=== PATIENT | male | born 1990 | race Caucasian/White ===

== ENCOUNTER 2016-11-27 08:37 | Outpatient (CLI) | payer BC ==
[2016-11-27 13:00] LABS: BASOPHILS # (AUTO) 0.1 10^3/uL (0.0-0.1); BASOPHILS % (AUTO) 0.6 %; EOSINOPHILS # (AUTO) 0.2 10^3/uL (0.0-0.7); EOSINOPHILS % (AUTO) 1.4 %; HCT - HEMATOCRIT 42.5 % (42.0-52.0); HGB - HEMOGLOBIN 14.4 g/dL (14.0-18.0); LYMPHOCYTES # (AUTO) 2.1 10^3/uL (1.5-3.5); LYMPHOCYTES % (AUTO) 15.1 %; MEAN CORPUSCULAR HGB CONC 33.8 g/dL (32.0-36.0); MEAN CORPUSCULAR VOLUME 88.8 fL (80.0-94.0); MEAN PLATELET VOLUME 9.2 fL (7.4-11.4); MONOCYTES % (AUTO) 7.3 %; NEUTROPHILS # (AUTO) 10.4 10^3/uL (1.5-6.6); NEUTROPHILS % (AUTO) 75.6 %; RED BLOOD COUNT 4.78 10^6/uL (4.70-6.10); RED CELL DISTRIBUTION WIDTH 13.7 % (12.0-15.0); UNCORRECTED WHITE BLOOD COUNT 13.8 x10^3/uL; WHITE BLOOD COUNT 13.8 x10^3/uL (4.8-10.8)
[2016-11-27 13:33] LABS: ALBUMIN/GLOBULIN RATIO 1.4 (1.0-2.2); BUN - BLOOD UREA NITROGEN 16 mg/dL (6-20); CALCIUM 9.2 mg/dL (8.5-10.3); CARBON DIOXIDE - CO2 24 mmol/L (21-32); CHLORIDE 103 mmol/L (101-111); CHOL/HDL RATIO 5.6 (<5.0); CHOLESTEROL 168 mg/dL; CREATININE 0.8 mg/dL (0.6-1.2); GFR - MDRD 116 (>89); GLUCOSE 86 mg/dL (70-100); HDL CHOLESTEROL 30 mg/dL; LDL/HDL RATIO 3.7 (<3.6); POTASSIUM 3.9 mmol/L (3.5-5.0); SODIUM 134 mmol/L (135-145); TOTAL PROTEIN 7.8 g/dL (6.7-8.2); TRIGLYCERIDES 139 mg/dL; VLDL CHOLESTEROL 28 mg/dL
[2016-11-27 13:36] LABS: HEMOGLOBIN A1C 0.53 g/dL
[2016-11-27 13:38] LABS: PLATELET ESTIMATE, MANUAL NORMAL (130-450,000) (NORMAL); PLATELET MORPHOLOGY NORMAL APPEARANCE (NORMAL)
== END 2016-11-27 08:38 | disposition home or self-care (01) ==
LOC: LAB.WCP 08:37
PROVIDERS: ATTEND Family Medicine
DX: Z00.00 Encounter for general adult medical examination without abnormal findings (principal)
CPT/HCPCS: 36415; 80053; 80061; 83036; 84443; 85025

== ENCOUNTER 2016-12-10 19:25 | Outpatient (CLI) | payer BC ==
--- NOTE | 2016-12-11 08:56 | Ultrasound Report ---
LIMITED ABDOMINAL ULTRASOUND: 12/10/2016 CLINICAL INDICATION: Umbilical protrusion, evaluate for hernia. TECHNIQUE: Real-time scanning was performed with solar sales representative and assessor static images obtained. FINDINGS: Ultrasound of the periumbilical abdominal wall was performed. There is a periumbilical he rnia present, with the neck measuring 1.4 cm. The hernia contains fat. No bowel herniation was seen at rest or during Valsalva. IMPRESSION: A 1.4 CM UMBILICAL HERNIA, CONTAINING FAT. JOB #: [id number] EXT JOB #:[id number]
== END 2016-12-10 19:26 | disposition home or self-care (01) ==
LOC: DI 19:25
PROVIDERS: ATTEND Family Medicine
DX: K42.9 Umbilical hernia without obstruction or gangrene (principal)
CPT/HCPCS: 76705

== ENCOUNTER 2019-07-01 10:19 | Outpatient (CLI) | payer BC, OTHER ==
[2019-07-01 12:20] LABS: BASOPHILS # (AUTO) 0.1 10^3/uL (0.0-0.1); BASOPHILS % (AUTO) 0.7 %; EOSINOPHILS # (AUTO) 0.2 10^3/uL (0.0-0.7); HGB - HEMOGLOBIN 14.6 g/dL (14.0-18.0); LYMPHOCYTES # (AUTO) 2.1 10^3/uL (1.5-3.5); LYMPHOCYTES % (AUTO) 20.1 %; MEAN CORPUSCULAR HEMOGLOBIN 29.5 pg (27.0-31.0); MEAN CORPUSCULAR HGB CONC 32.7 g/dL (32.0-36.0); MEAN CORPUSCULAR VOLUME 90.1 fL (80.0-94.0); MEAN PLATELET VOLUME 10.9 fL (7.4-11.4); MONOCYTES # (AUTO) 0.7 10^3/uL (0.0-1.0); MONOCYTES % (AUTO) 6.6 %; NEUTROPHILS # (AUTO) 7.3 10^3/uL (1.5-6.6); NEUTROPHILS % (AUTO) 68.2 %; PLT - PLATELET COUNT 205 10^3/uL (130-450); RED BLOOD COUNT 4.95 10^6/uL (4.70-6.10); RED CELL DISTRIBUTION WIDTH 14.2 % (12.0-15.0); WHITE BLOOD COUNT 10.7 x10^3/uL (4.8-10.8)
[2019-07-01 12:56] LABS: BUN - BLOOD UREA NITROGEN 11 mg/dL (6-20); CARBON DIOXIDE - CO2 26 mmol/L (21-32); CHLORIDE 106 mmol/L (101-111); CHOL/HDL RATIO 5.6 (<5.0); CHOLESTEROL 150 mg/dL; CREATININE 0.7 mg/dL (0.6-1.2); GFR - MDRD 133 (>89); GLUCOSE 84 mg/dL (70-100); HDL CHOLESTEROL 27 mg/dL; LDL CHOLESTEROL,CALCULATED 99 mg/dL; LDL/HDL RATIO 3.7 (<3.6); SODIUM 137 mmol/L (135-145); VLDL CHOLESTEROL 24 mg/dL
== END 2019-07-01 23:59 | disposition home or self-care (01) ==
LOC: LAB.N 10:19
PROVIDERS: ATTEND Physician Assistant Medical
DX: E66.9 Obesity, unspecified (principal); G47.9 Sleep disorder, unspecified; I10 Essential (primary) hypertension
CPT/HCPCS: 36415; 80048; 80061; 83721; 84443; 85025

== ENCOUNTER 2019-10-13 08:00 | Outpatient (CLI) | payer OTHER | END 2019-10-13 23:59 | disposition home or self-care (01) | LOC: LAB.R 08:00 | PROVIDERS: ATTEND Nurse Practitioner Family | DX: Z20.828 Contact with and (suspected) exposure to other viral communicable diseases (principal); R05 Cough | CPT/HCPCS: 81599 ==

== ENCOUNTER 2019-10-20 15:32 | Outpatient (CLI) | payer OTHER ==
--- NOTE | 2019-10-20 16:08 | SLEEP CARE CONSULTATION ---
Information from patient questionnaire entered by Yu Doran. I have reviewed and concur with the information entered by Yu Doran. This document represents the service I personally performed and the decisions made by me, Luisa Almaguer MD, [facility]. History of Present Illness Service Date and Time: 10/20/2019 1532 Reason for Visit: New patient Chief Complaint: reports: Unrefreshed sleep, Snoring, Other (nacrolepse) Duration of Symptoms: 2-3 years Usual bedtime: 11 pm Time it takes to fall asleep: immediately Snores at night: Yes Observed to quit breathing while asleep: Yes Sleeps alone due to snoring: Yes Number of times waking at night: 3-4 Reasons for waking at night: reports: Bathroom Toss, Turn, or Twitch while sleeping: Yes Recalls having dreams: No Usually gets out of bed at: 6 am Feels refreshed in the morning: No Morning headache: Yes Sleepy or fatigued during the day: Yes Ever fallen asleep while driving: Yes Takes day naps: Yes Dreams during day naps: No Prior sleep studies: No Additional HPI information: I had the pleasure of seeing Mr. Saldana today regarding the possibility of him having a sleep disorder. As you know, he is a 29 year old gentleman who complains of unrefreshed sleep, loud snore, and excessive daytime sleepiness. The patient tells me that he normally goes to bed around 11 pm, and it takes him approximately just a few minutes to fall asleep. He has been told that he snores loudly and irregularly at night. He has also been observed to stop breathing in his sleep. His fiance has to sleep in a separate room. He can re call waking up on the average of 3 - 4 times during the night. Most of the time he wakes up because of having to use the bathroom. He has awakened occasionally because of his own snoring, choking, and having to gasp for air. There is a lot of tossing and turning in his sleep. No somniloquy (sleep talking) or somnambulism (sleep walking). Generally there is no recollection of dreams. In the morning he usually gets up out of the bed around 6 a.m. not feeling refreshed nor rested. He usually has a morning headache that goes away within 15 minutes. During the day he complains of feeling sleepy and fatigued. His score on [place] Sleepiness Scale is 23 out of 24. He usually takes naps during the day. Upon falling asleep during the day he denies having vivid dreams. He has never had sleep paralysis, experienced cataplexy or symptoms of restless leg syndrome. He reports having impaired concentration during the day. 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 Patient is Single and lives in [place]. Have you smoked in the past 12 months: No Alcohol use: Yes Alcohol amount and frequency: a little 1-2 times a month Caffeine use: Yes Caffeine amount and frequency: 3-4 daily Family History Family history of sleep disordered breathing: No Allergies and Home Medications Drug allergies reviewed: Yes Home medication list reviewed: Yes Review of Systems Cardiovascular: reports: leg or foot swelling Respiratory: reports: shortness of breath Gastrointestinal: denies: heartburn, difficulty swallowing, nausea, vomitting, diarrhea, abdominal pain, other Urinary: reports: frequency, urgency Neurological: reports: headaches Psychiatric: reports: anxiety, depression Ear/Nose/Throat: denies: nasal congestion, sinus problems, nose bleeds, dry mouth/throat, hoarseness, injury to nose, tonsillectomy, wisdom teeth removed, other Endocrine: reports: sluggishness, excessive thirst, increased urination Musculoskeletal: reports: back pain Immunologic: denies: sneezing, rash, itching, allergies to food or environment, other Physical Exam Height: 5 ft 11 in Weight: 550 lb Body Mass Index: 76.7 BMI Classification: Morbidly Obese Impression and Plan IMPRESSION: 1. Obstructive Sleep Apnea-Hypopnea Syndrome, most likely very severe, as suggested by history of loud and irregular snoring, observed cessation of breath while asleep, frequent awakenings during the night, unrefreshed sleep, morning headache, cognitive impairment, and daytime hypersomnolence. Narrow oropharynx and obesity are common predisposing factors for obstructive sleep apnea-hypopnea syndrome. Pathophysiology of sleep-disordered breathing was discussed. I recommend proceeding to polysomnography to confirm the diagnosis and to assess severity. Because of his weight, an in-laboratory polysomnography will have to be referred to [facility] in [place]. The patient was also given the option of a home sleep apnea test (HSAT). Plan: 1. Schedule either an in-laboratory polysomnography or home sleep apnea test (HSAT). 2. Avoid long distance driving or when feeling sleepy. 3. Avoid alcohol, sedative and muscle relaxant around bedtime. 4. Attempt to lose weight. 5. follow up with his primary care provider for leg edema. 6. Return in 1 to 2 weeks after the study to discuss results and initiate therapy. Visit Type: In Office Time Spent with Patient (minutes): 15 Provider Statement: I spent 100% of the Face to Face Visit with the patient with greater than 50% spent counseling the patient and coordination of care.
== END 2019-10-20 15:33 | disposition home or self-care (01) ==
LOC: SC 15:32
PROVIDERS: ATTEND Internal Medicine Pulmonary Disease
DX: G47.10 Hypersomnia, unspecified (principal); G47.8 Other sleep disorders; R06.83 Snoring; R06.81 Apnea, not elsewhere classified; R51 Headache; F32.9 Major depressive disorder, single episode, unspecified; E66.01 Morbid (severe) obesity due to excess calories; Z68.45 Body mass index [BMI] 70 or greater, adult
CPT/HCPCS: 99203; 99212

== ENCOUNTER 2020-03-21 09:14 | Outpatient (CLI) | payer OTHER ==
--- NOTE | 2020-03-21 10:24 | SLEEP CARE CONSULTATION ---
Information from patient questionnaire entered by Gallito Vazquez. I have reviewed and concur with the information entered by Gallito Vazquez. This document represents the service I personally performed and the decisions made by me, Pretty Lemus ARNP. History of Present Illness Service Date and Time: 03/21/2020913 Previous diagnosis: Extremely Severe, Obstructive Sleep Apnea-Hypopnea Syndrome AHI: 109.7 Reason for follow up: first compliance Equipment type: CPAP Equipment obtained from: [facility] (no new supplies yet) Mask style: Nasal (over the night) Backup mask available: No (keep mask once it is replaced) Last cushion change: 6 weeks Prior sleep studies: No Year and Where: 2019 [facility] Type of Sleep Study: Home sleep study HPI additional information: BRENT ESCOTO was diagnosed to have extremely severe, AHI 109.7, obstructive sleep apnea-hypopnea syndrome and returned today for CPAP therapy first compliance follow-up. Sleep Study - Results Prior sleep studies: No CPAP Compliance Data - Data Reviewed with Patient Average duration of nightly device use: 4 h 48 min Compliance rate %: 26.7 Current pressure setting (cmH2O): 4-18 Humidity settin Heated hose settin Average residual AHI: 27.2 Central apnea: 0.3 Obstructive apnea: 15.8 Average large leak: 6 min 26 sec Subjective Missed days of use due to: reports: other (staying with brother, lost job and place to stay) Patient concerns: denies: aerophagia, mask discomfort, air blowing in eyes, mask leak noise, condensation in mask/hose, nasal congestion, dry mouth, nose, throat, epistaxis, other Observed to snore while using device: Yes (still a little, but it is a lot less) Current pressure setting perceived as: comfortable On therapy, patient: reports: sleeping better, awakening more refreshed, being more awake and alert during the day, more rested overall. denies: drowsiness while driving Initial [place] Sleepiness Scale score: 23 (in 2019) Current [place] Sleepiness Scale score: 10 Allergies and Home Medications Drug allergies reviewed: Yes (NKDA) Home medication list reviewed: Yes (no changes) Review of Systems Review of systems same as previous: Yes (no changes) Physical Exam Heart Rate: 86 O2 Saturation: 96 Height: 5 ft 11 in Weight: 566 lb Body Mass Index: 78.9 BMI Classification: Morbidly Obese Impression and Plan 1. Obstructive Sleep Apnea-Hypopnea Syndrome, extremely severe, with poor treatment compliance and poor apnea control. He has however shown good reduction of his residual AHI to 27.2 from his original 109.7 found on his HST. On CPAP therapy, the patient has better sleep quality and is more rested overall. He has lost his job and house. He is currently sleeping on his brother's couch. He has had some difficulty in remembering to put the CPAP on due to life stressors and current living arrangements. To prevent falling asleep without CPAP, patient advised to put CPAP on before getting into bed (or going to sleep) and wearing it for any naps. 2. Morbid obesity, unspecified. Patient has been making changes like limiting portions and eating healthier foods. Currently patients BMI is 78.0. Obesity increases the risk of apnea, CPAP pressure requirements and overall health risks especially cardiovascular and diabetes. Thus patient is advised to try to lose weight. The BMI chart was reviewed. The patient's CPAP pressure range should accommodate some weight loss. Symptoms to report for additional pressure adjustment discussed. Patient's apnea severity and rationale for treatment to reduce apnea, improve sleep quality and reduce cardiovascular and cerebrovascular events was reviewed. I also reviewed the benefit of consistent device use of CPAP for his asthma, depression and anxiety. * Increase use of CPAP * Changeauto CPAP pressure to 14-16 cmH2O * Notify me if snoring with mask or feeling that the pressure is too much or too little * Continue to make efforts to lose weight * Call this office if any problems using CPAP * Return for follow up in 1-2 months, or sooner if concerns arise Counseling Topics: Spare mask, Weight loss health impact Visit Type: In Office Time Spent with Patient (minutes): 20 Provider Statement: I spent 100% of the Face to Face Visit with the patient with greater than 50% spent counseling the patient and coordination of care.
== END 2020-03-21 09:15 | disposition home or self-care (01) ==
LOC: SC 09:14
PROVIDERS: ATTEND Nurse Practitioner Family
DX: G47.33 Obstructive sleep apnea (adult) (pediatric) (principal); E66.01 Morbid (severe) obesity due to excess calories; Z68.45 Body mass index [BMI] 70 or greater, adult
CPT/HCPCS: 99212; 99213

== ENCOUNTER 2020-05-16 12:43 | Outpatient (CLI) | payer OTHER | END 2020-05-16 12:44 | disposition home or self-care (01) | LOC: SC 12:43 | PROVIDERS: ATTEND Nurse Practitioner Family | DX: Z53.9 Procedure and treatment not carried out, unspecified reason (principal) ==

== ENCOUNTER 2021-11-30 11:55 | Outpatient (CLI) | payer MEDICAID | END 2021-11-30 11:56 | disposition critical access hospital (66) | LOC: EMS 11:55 | DX: R06.00 Dyspnea, unspecified (principal); R05.9 Cough, unspecified; Z59.02 Unsheltered homelessness | CPT/HCPCS: A0425; A0427 ==

== ENCOUNTER 2021-11-30 12:17 | Inpatient (IN) | payer MEDICAID ==
--- NOTE | 2021-11-30 12:23 | ED Physician Documentation ---
History of Present Illness - Stated complaint Stated Complaint: SOA - History obtained from History obtained from: Patient, EMS - Additonal information Additional information: 31-year-old gentleman with history of pedal edema and morbid obesity. His only routine medication is furosemide. Smokes marijuana on occasion, does not smoke tobacco. He has had a progressive illness over the last few days to week marked by cough productive of orange sputum and worsening shortness of breath. He denies fevers, sick contacts, or an increase in his chronic pedal edema. EMS brings him in and notes him to have had a room air saturation of 80%. He feels somewhat better after a DuoNeb in route. Review of Systems Ten Systems: 10 systems reviewed and negative Constitutional: denies: Fever, Chills Cardiac: denies: Chest pain / pressure, Palpitations PD PAST MEDICAL HISTORY - Allergies Allergies/Adverse Reactions: Allergies Allergy/AdvReac Type Severity Reaction Status Date / Time No Known Drug Allergies Allergy Verified 11/30/21 12:28 PD ED PE NORMAL - Vitals Vital signs reviewed: Yes - General General: Alert and oriented X 3, Other (Labored breathing but speaking in full sentences but barely. Tachypneic.) - HEENT HEENT: PERRL, EOMI - Neck Neck: Supple, no meningeal sign, No bony TTP - Cardiac Cardiac: RRR, No murmur - Respiratory Respiratory: Other (Mildly diminished at the bases with mild expiratory wheezes, generally good air motion though. No focal findings.) - Abdomen Abdomen: Normal bowel sounds, Soft, Non tender - Back Back: No CVA TTP, No spinal TTP - Derm Derm: Normal color, Warm and dry - Extremities Extremities: Other (4+ pitting pedal edema which she says is not worse than usual with venous stasis changes.) - Neuro Neuro: Alert and oriented X 3, Normal speech Results - Vitals Vitals: Vital Signs - 24 hr 11/30/21 11/30/21 11/30/21 12:21 12:29 12:30 Temperature 36.9 C Heart Rate 102 H 92 Respiratory 24 34 H Rate Blood Pressure 154/71 H 159/69 H O2 Saturation 83 L 100 100 11/30/21 11/30/21 12:41 13:00 Temperature Heart Rate 78 90 Respiratory 23 25 H Rate Blood Pressure 142/66 H O2 Saturation 100 Oxygen O2 Source Nasal cannula Oxygen Flow Rate 4 - EKG (time done) 1242 Rate: Rate (enter#) (93) Rhythm: NSR, LAE [place]: RAD Intervals: Normal IA QRS: Normal Ischemia: Non specific changes. No: ST elevation c/w ischemia, ST depression - Labs Labs: Laboratory Tests 11/30/21 11/30/21 11/30/21 12:35 12:58 12:58 WBC 12.0 H RBC 4.61 L Hgb 12.9 L Hct 42.0 MCV 91.1 MCH 28.0 MCHC 30.7 L RDW 16.3 H Plt Count 215 MPV 10.0 Neut # (Auto) 9.1 H Lymph # (Auto) 1.4 L [place] # (Auto) 0.8 Eos # (Auto) 0.2 Baso # (Auto) 0.1 Absolute Nucleated RBC 0.03 Nucleated RBC % 0.2 Manual Slide Review Indicated WBC Morphology Platelet Estimate NORMAL (130-450,000) Platelet Morphology NORMAL APPEARANCE RBC Morph Micro Appear NORMAL APPEARANCE VBG pH VBG pCO2 VBG pO2 VBG HCO3 VBG Total CO2 VBG O2 Saturation VBG Base Excess Sodium 138 Potassium 4.6 Chloride 98 L Carbon Dioxide 34 H Anion Gap 6.0 BUN 11 Creatinine 0.7 Estimated GFR (MDRD) 131 Glucose 85 Lactic Acid Calcium 8.9 Phosphorus 4.1 Magnesium 2.0 Total Bilirubin 0.9 AST 24 ALT 39 Alkaline Phosphatase 60 B-Natriuretic Peptide Total Protein 7.5 Albumin 3.8 Globulin 3.7 Albumin/Globulin Ratio 1.0 Nasal Adenovirus (PCR) NOT DETECTED Nasal B. parapertussis DNA (PCR) NOT DETECTED Nasal Coronavir 229E PCR NOT DETECTED Nasal Coronavir HKU1 PCR NOT DETECTED Nasal Coronavir NL63 PCR NOT DETECTED Nasal Coronavir OC43 PCR NOT DETECTED Nasal Enterovir/Rhinovir PCR NOT DETECTED Nasal Influenza B PCR NOT DETECTED Nasal Influenza A PCR NOT DETECTED Nasal Parainfluen 1 PCR NOT DETECTED Nasal Parainfluen 2 PCR NOT DETECTED Nasal Parainfluen 3 PCR NOT DETECTED Nasal Parainfluen 4 PCR NOT DETECTED Nasal RSV (PCR) NOT DETECTED Nasal B.pertussis DNA PCR NOT DETECTED Nasal C.pneumoniae (PCR) NOT DETECTED [place] Human Metapneumo PCR NOT DETECTED Nasal M.pneumoniae (PCR) NOT DETECTED Nasal SARS-CoV-2 (PCR) NOT DETECTED 11/30/21 11/30/21 11/30/21 12:58 12:58 12:58 WBC RBC Hgb Hct MCV MCH MCHC RDW Plt Count MPV Neut # (Auto) Lymph # (Auto) [place] # (Auto) Eos # (Auto) Baso # (Auto) Absolute Nucleated RBC Nucleated RBC % Manual Slide Review WBC Morphology Platelet Estimate Platelet Morphology RBC Morph Micro Appear VBG pH 7.338 VBG pCO2 50.5 VBG pO2 38.5 VBG HCO3 26.5 VBG Total CO2 28.1 VBG O2 Saturation 70.9 VBG Base Excess 0.0 Sodium Potassium Chloride Carbon Dioxide Anion Gap BUN Creatinine Estimated GFR (MDRD) Glucose Lactic Acid 1.1 Calcium Phosphorus Magnesium Total Bilirubin AST ALT Alkaline Phosphatase B-Natriuretic Peptide 45 Total Protein Albumin Globulin Albumin/Globulin Ratio Nasal Adenovirus (PCR) Nasal B. parapertussis DNA (PCR) Nasal Coronavir 229E PCR Nasal Coronavir HKU1 PCR Nasal Coronavir NL63 PCR Nasal Coronavir OC43 PCR Nasal Enterovir/Rhinovir PCR Nasal Influenza B PCR Nasal Influenza A PCR Nasal Parainfluen 1 PCR Nasal Parainfluen 2 PCR Nasal Parainfluen 3 PCR Nasal Parainfluen 4 PCR Nasal RSV (PCR) Nasal B.pertussis DNA PCR Nasal C.pneumoniae (PCR) [place] Human Metapneumo PCR Nasal M.pneumoniae (PCR) Nasal SARS-CoV-2 (PCR) PD MEDICAL DECISION MAKING - ED course ED course: 31-year-old gentleman with BMI of 90 and weight of 301 kg presents with shortness of breath. His BNP is normal and venous gases normal. He is not tachycardic. PE is considered, but nothing really to suggest PE given that he is not tachycardic. He has no new or asymmetric pedal edema or calf pain. No chest pain. Chest x-ray demonstrating a left lower lobe pneumonia and with a combination of a productive cough this is likely causative more than possible CHF on x-ray. He was given 40 mg of Lasix IV here but also Rocephin and Zithromax IV for pneumonia after blood cultures and spoke with Dr. Mane for admission at 1:45 PM. 1v CXR: 1. Moderate cardiomegaly and bilateral perihilar interstitial thickening suggesting CHF or volume overload. Correlate with BNP. 2. Possible early pulmonary edema versus infectious opacity in the left infrahilar region. Departure - Departure Disposition: [facility] DC/Xfer Clinical Impression: Pneumonia, Congestive heart failure Condition: Stable
[2021-11-30] MEDS: ALBUTEROL NEB 2.5 MG/3 ML INH STA (12:33)
[2021-11-30] MEDS ORDERED: ALBUTEROL NEB 2.5 MG/3 ML INH ONE (12:44)
--- NOTE | 2021-11-30 12:55 | XRAY Report ---
PROCEDURE: Chest 1 View X-Ray INDICATIONS: cough, dyspnea TECHNIQUE: One view of the chest was acquired. COMPARISON: None FINDINGS: Surgical changes and devices: None. Lungs and pleura: Diffuse thickening of the interstitial markings, most prominently in the perihilar region bilaterally. Possible alveolar opacity in the left infrahilar region. No visible large pleural effusions. Mediastinum: Mediastinal contours appear normal. Heart size is moderately enlarged. The central vas culature is mildly prominent. Bones and chest wall: No suspicious bony lesions. Overlying soft tissues appear unremarkable. IMPRESSION: 1. Moderate cardiomegaly and bilateral perihilar interstitial thickening suggesting CHF or volume ove rload. Correlate with BNP. 2. Possible early pulmonary edema versus infectious opacity in the left infrahilar region. Reviewed by: Allegra Anderson MD on 11/30/2021 12:53 PM PDT Approved by: Allegra Anderson MD on 11/30/2021 12:53 PM PDT Station ID: [id number]
[2021-11-30 13:05] LABS: BASOPHILS # (AUTO) 0.1 10^3/uL (0.0-0.1); BASOPHILS % (AUTO) 0.5 %; EOSINOPHILS # (AUTO) 0.2 10^3/uL (0.0-0.7); EOSINOPHILS % (AUTO) 1.3 %; HGB - HEMOGLOBIN 12.9 g/dL (14.0-18.0); LYMPHOCYTES # (AUTO) 1.4 10^3/uL (1.5-3.5); LYMPHOCYTES % (AUTO) 11.2 %; MEAN CORPUSCULAR HGB CONC 30.7 g/dL (32.0-36.0); MEAN CORPUSCULAR VOLUME 91.1 fL (80.0-94.0); MONOCYTES # (AUTO) 0.8 10^3/uL (0.0-1.0); MONOCYTES % (AUTO) 6.7 %; NEUTROPHILS # (AUTO) 9.1 10^3/uL (1.5-6.6); NEUTROPHILS % (AUTO) 75.7 %; NRBC ABSOLUTE COUNT (AUTO) 0.03 x10^3/uL; NUCLEATED RED BLOOD CELLS AUTO 0.2 /100WBC; PLT - PLATELET COUNT 215 10^3/uL (130-450); RED BLOOD COUNT 4.61 10^6/uL (4.70-6.10); RED CELL DISTRIBUTION WIDTH 16.3 % (12.0-15.0)
[2021-11-30 13:08] LABS: SLIDE REVIEW? Indicated
[2021-11-30] MEDS ORDERED: cefTRIAXone 2 GM in SODIUM CHLORIDE 0.9% MINIBAG 100 ML IV STA (13:09)
[2021-11-30] MEDS ORDERED: AZITHROMYCIN INJ 500 MG in SODIUM CHLORIDE 0.9% 250 ML IV STA (13:09)
[2021-11-30] MEDS ORDERED: FUROSEMIDE 40 MG/4 ML VIAL IVP STA (13:12)
[2021-11-30 13:27] LABS: VBG HCO3 26.5 mmol/L (23-28); VBG OXYGEN SATURATION 70.9 % (60-80); VBG PH 7.338 (7.31-7.41); VBG PO2 38.5 mmHg (25-47); VBG TOTAL CO2 28.1 mmol/L (24-29)
[2021-11-30 13:28] LABS: PLATELET ESTIMATE, MANUAL NORMAL (130-450,000) (NORMAL); PLATELET MORPHOLOGY NORMAL APPEARANCE (NORMAL); RBC MORPHOLOGY (MULTIPLE) NORMAL APPEARANCE (NORMAL); VBG PCO2 50.5 mmHg (41-51)
[2021-11-30 13:37] LABS: ALBUMIN 3.8 g/dL (3.2-5.5); BILIRUBIN,TOTAL 0.9 mg/dL (0.2-1.0); CALCIUM 8.9 mg/dL (8.5-10.3); CREATININE 0.7 mg/dL (0.6-1.2); PHOSPHORUS 4.1 mg/dL (2.5-4.6); POTASSIUM 4.6 mmol/L (3.5-5.0); TOTAL PROTEIN 7.5 g/dL (6.7-8.2)
[2021-11-30 13:38] LABS: B. PARAPERTUSSIS- RESP PCR PAN NOT DETECTED; B. PERTUSSIS- RESP PCR PANEL NOT DETECTED; C. PNEUMONIAE- RESP PCR PANEL NOT DETECTED; CORONAVIRUS 229E-RESP PCR NOT DETECTED; CORONAVIRUS HKU1-RESP PCR NOT DETECTED; CORONAVIRUS NL63-RESP PCR NOT DETECTED; CORONAVIRUS OC43-RESP PCR NOT DETECTED; HUMAN METAPNEUMOVIRUS NOT DETECTED; INFLUENZA A- RESP PCR PANEL NOT DETECTED; INFLUENZA B - RESP PCR PANEL NOT DETECTED; M. PNEUMONIAE- RESP PCR PANEL NOT DETECTED; PARAINFLUENZA VIRUS 1 NOT DETECTED; PARAINFLUENZA VIRUS 2 NOT DETECTED; PARAINFLUENZA VIRUS 3 NOT DETECTED; PARAINFLUENZA VIRUS 4 NOT DETECTED; RHINOVIRUS/ENTEROVIRUS NOT DETECTED; RSV- RESP PCR PANEL NOT DETECTED; SARS-CoV-2 -RESP PCR PANEL NOT DETECTED
[2021-11-30] MEDS ORDERED: ONDANSETRON ODT 4 MG TABLET TL PRN (13:44)
[2021-11-30] MEDS ORDERED: oxyCODONE 5 MG TABLET PO PRN (13:44)
[2021-11-30] MEDS ORDERED: ONDANSETRON 4 MG/2 ML VIAL IVP PRN (13:44)
[2021-11-30] MEDS ORDERED: ACETAMINOPHEN 325 MG TABLET PO PRN (13:44)
--- NOTE | 2021-11-30 14:02 | HISTORY & PHYSICAL EXAMINATION ---
Chief Complaint - Chief Complaint Chief Complaint: shortness of breath History of Present Illness - Admitted From Admitted From:: home via EMS - History Obtained From Records Reviewed: [facility] History obtained from: Dr. Cano and patient Exam Limitations: shortness of breath - History of Present Illness HPI Comment/Other: 31-year-old male who has severe superobesity as well as severe obstructive sleep apnea hypopnea syndrome that presents as shortness of breath via EMS today. He has always had chronic leg edema. Has been present for years. Then he has had an increase in leg edema. He cannot put his finger on it. There is no change in diet, medication. He has not changed his work schedule. He was not ill. But the leg edema was so severe that he was unable to stand for minutes at a time. He went to the walk-in clinic on on November 24 with these complaints. At that time it was mainly the bilateral leg edema and bilateral leg pain. He was unable to stand for more than 10 minutes without a burning sensation. Over the course of 24 hours the leg edema has gotten so severe he could barely move. But on physical examination he was described as moving all extremities without pain or limitations. No swelling was noted at all. Skin was warm, dry, intact without any changes in color. He was started on Lasix. In spite of that, he continued to progress with a new cough over the last few days and then orange phlegm. He denied fever, chills, sore throat. No postnasal drip. No eustachian tube dysfunction. He works at [employer] and no one else is sick around him. Today his shortness of breath and cough became so severe that EMS was called. He was doing his weekly laundry. Usually he can walk from the car to the laundromat without stopping. Today he had to stop twice with 1 load of laundry to catch his breath. It got to the point that he could not breathe anymore.When EMS got there they found him to have a room air saturation of 80%. So he was placed on oxygen and given albuterol in route. He was with labored breathing. In the emergency room temperature was 36.9. Heart rate 102. Blood pressure 154/71. Respirations 24. 83% on room air. Weight is 301.639 kg. Chest x-ray shows a faint left infiltrate according to ER MD. Radiology reads it as congestive heart failure with bilateral congestion. His exam had him with labored breathing and barely speaking in full sentences, tachypnea. Diminished breath sounds at the bases with mild expiratory wheezing. Good air movement. 4+ pitting edema not worse than usual with chronic venous stasis changes. He was alert and oriented. He received Lasix once. And was given azithromycin and Rocephin. He is CMP is essentially normal. BNP is 45. White cell count is 12,000. Hemoglobin 12.9. Platelets 215. MCV is 91.1. He is requiring 4 L nasal cannula to maintain his O2 sats at 97. He still breathing at about 30. Emergency room provider has requested admission to our service for pneumonia and possible new CHF. History - Past Medical History Cardiovascular: reports: Hypertension Respiratory: reports: Asthma, Sleep apnea, CPAP use Neuro: reports: None Endocrine/Autoimmune: reports: Other (superobesity. Has tried everything. He is getting ready to start the process of getting a lap band in his first visit with that doctor is in January.) GI: reports: Other (umbilical hernia) : reports: None Psych: reports: Depression Musculoskeletal: reports: Other (Chronic leg and foot pain with chronic pedal edema for several years) MRSA Hx?: No - Past Surgical History Other past surgical history: No past surgical history - Family & Social History Family History Comment/Other: Mom is alive. Has diabetes. Dad is alive and also has diabetes and HTN. 4 brothers and 2 sisters. No medical issues but he does feel mental illness is present in them. No children. There are no cancers, thyroid, bleeding disorders in the family Living arrangement: Homeless (living in his car) Living Situation: Alone Social History Notes: Never smoked. No history of alcohol abuse or recreational substance abuse. He is employed at [employer] 20 hours a week. Not . Has no children. From [place]. Came to live on [facility] in 2014. He is only able to work 20 hours a week because of the pain in his feet and legs. The crew manager at [employer] was trying to work with him so that he can do 4 hours of work, rest 4 hours, and then do another 4 hours of work so he can get 8 hours a day. He lives out of his car. During the day he goes to [employer] when not at his not work. He showers 3 days a week with the relationship to hank tran has with a gym. He also does laundry 1 day a week on . - Substance History Use: Uses substance without health or social issues: Alcohol (Is 2 beers about once a month), Cannabis (1 cigarette once a month) Abuse: Recurrent use of substance despite neg consequences: NONE Dependence: Experiences withdrawal or developed tolerances: NONE - POLST Patient has POLST: No POLST Status: Full Code Meds/Allgy - Home Medications Home Medications: Ambulatory Orders Medication Instructions Recorded Confirmed Furosemide [Lasix] 20 mg PO DAILY 11/30/21 11/30/21 - Allergies Allergies/Adverse Reactions: Allergies Allergy/AdvReac Type Severity Reaction Status Date / Time No Known Drug Allergies Allergy Verified 11/30/21 12:28 Review of Systems - Constitutional Constitutional: reports: Fatigue, Weakness, Weight gain. denies: Fever, Chills, Malaise, Poor appetite, Diaphoresis, Night sweats - Eyes Eyes: denies: Pain, Irritation, Amaurosis - Ears, Nose & Throat Ears, Nose & Throat: denies: Ear pain, Hearing loss, Hearing aids, Nasal pain, Nasal discharge, Nasal obstruction, Nasal congestion, Dentures, Sore throat, Hoarseness - Cardiovascular Cariovascular: reports: Edema, Exertional dyspnea, Decr. exercise tolerance. denies: Irregular heart rate, Palpitations, Chest pain, Lightheadedness, Syncope - Respiratory Respiratory: reports: Cough, Sputum production, Wheezing, Snoring, SOB at rest, SOB with exertion, Apnea. denies: Hemoptysis, Orthopnea - Gastrointestinal Gastrointestinal: denies: Abdominal pain, Abdominal distention, Constipation, Diarrhea, Change in bowel habits - Genitourinary Genitourinary: denies: Dysuria, Frequency, Urgency, Hematuria - Musculoskeletal Musculoskeletal: reports: Muscle pain (of legs), Other (Severe chronic foot pain when stands on his feet for more than 3 hours recently now down to 10 minutes). denies: Back pain, Muscle aches, Stiffness - Integumentary Integumentary: denies: Rash, Pruritis, Lesions, Dryness - Neurological Neurological: denies: General weakness, Focal weakness, Headache, Dizziness, Memory problems, Pre-existing deficit - Psychiatric Psychiatric: reports: Depression. denies: Anxiety, Suicidal - Endocrine Endocrine: denies: Polyuria, Polydypsia, Polyphagia - Hematologic/Lymphatic Hematologic/Lymphatic: denies: Anemia, Bruising, Petechiae, Blood clots Prior Level of Functionality: Patient is employed . Independent with activities of daily living. No use of durable medical Equipment. Mobility is limited by his obesity. One of his coworkers from when he worked at [employer] in 2014 is who he considers his best friend/brother. He would like that person to be his DURABLE POWER OF QUALITY CONTROL OPERATOR. Exam - Vital Signs Reviewed Vital Signs: Yes Vital Signs: Vital Signs x48h Temp Pulse Resp BP Pulse Ox 11/30/21 13:30 104 H 30 H 143/80 H 97 11/30/21 13:00 90 25 H 142/66 H 100 11/30/21 12:41 78 23 11/30/21 12:30 92 34 H 159/69 H 100 11/30/21 12:29 100 11/30/21 12:21 36.9 C 102 H 24 154/71 H 83 L - Physical Exam General Appearance: positive: No acute distress (But after speaking to me for 5 minutes, he starts having increasing cough, wheezing, and increased respiratory rate), Alert, Other (Super obese young male, sitting at about 35 degrees in the [facility]) Eyes Bilateral: positive: PERRL, EOMI ENT: positive: No signs of dehydration. negative: Purulent nasal drainage, Pharyngeal erythema Neck: positive: Other (I cannot assess for JVD because of neck girth). negative: Stiff neck Respiratory: positive: Wheezes, Other (Increasing dry cough when he speaks to me. Increased respiratory effort when he speaks to me. If he can rest for a minute he can recover.). negative: Rales Cardiovascular: positive: Regular rate & rhythm (Widened AP diameter leaving him with distant cardiac tones). negative: Gallop/S4, Friction rub Peripheral Pulses: positive: 0 Abdomen: positive: Non-tender, No organomegaly, Nml bowel sounds, No distention, Other (Reducible umbilical hernia) Skin: positive: Warm, Dry, Other (Chronic red venous stasis changes from the knees down of his skin. Also with some dry cracked skin. No oozing or fluid yet) Extremities: positive: Full ROM, Pedal edema Neurologic/Psychiatric: positive: Oriented x3, CN's nml (2-12), Motor nml Conclusion/Plan - Problem List (1) Acute respiratory failure with hypoxia Conclusion/Plan: At this time it is felt that he has hypoxic from a combination of early left infiltrate and "congestive heart failure". We have thought about pulmonary em bolism. The emergency room doctor and I discussed. He is not tachycardic. He has no chest pain. And his size would prohibit us from doing any type of radiologic evaluation for PE. If I check a D-dimer it will most likely be elevated if he has pneumonia. Plan: Treat as pneumonia Investigate more vigorously to see if he really has congestive heart failure Go ahead and check D-dimer. If it is negative at least it would give me one avenue of investigation. (2) Pneumonia Conclusion/Plan: Cough, hemoptysis, shortness of breath. Abnormal chest x-ray. He does have an elevated white cell count but no fever. Treat cautiously as pneumonia Pneumonia pathway, check procalcitonin (3) Congestive heart failure Conclusion/Plan: I am suspicious of this diagnosis and this gentleman has not had this diagnosis before. I believe he is chronic lymphedema from his morbid obesity and mechanical issues but not true congestive heart failure in the past. He may have chronic leg edema because of lymphedema and his size. The recent cough, possible lung infection on top of a patient with obstructive sleep apnea and asthma may have resulted in increasing pulmonary pressures and subsequent right- sided heart failure/leg edema. The abnormalities were seen on chest x-ray may be strictly due to body habitus and chest x-ray technique. BNP is normal. He has received a dose of Lasix in the emergency room but I will hold off on giving him anymore. Plan: Echocardiogram Repeat chest x-ray looking for better technique Qualifiers: Heart failure chronicity: unspecified (4) ALONDRA on CPAP Conclusion/Plan: The patient has been seen by the sleep lab. He has on his own equipment. I will see if someone can bring it in for him. He can use his own equipment in his room. (5) Super obesity Conclusion/Plan: He is seen erratically in his primary care provider office. They have discussed weight loss attempts. So far, unfortunately, his attempts have been unsuccessful. He has plans to establish himself with a bariatric clinic. He really wants to start the process by January and is looking at a lap band surgery to help with weight loss. - Lab Results Lab results reviewed: Yes Fish Bones: 11/30/21 12:58 11/30/21 12:58 - Diagnostic Imaging Results Diagnostic Imaging Results: positive: Final report reviewed Diagnostic Imaging Results Comments: Moderate cardiomegaly and bilateral perihilar interstitial thickening suggestive of congestive heart failure or volume overload. Correlate with BNP. Possible early pulmonary edema versus infectious opacity in the left infrahilar region. - EKG Results EKG Interpreted Independently: No EKG Comparison: No prior EKG EKG Findings: Normal sinus rhythm. No acute ST-T wave changes. Core Measures - Anticipated LOS I expect patient to be DC'd or transferred within 96 hours.: Yes - DVT/VTE - Prophylaxis VTE/DVT Device ordered at admit?: No VTE/DVT Prophylaxis med ordered at admit?: Yes
[2021-11-30] MEDS: SODIUM CHLORIDE FLUSH 0.9% 10 ML SYRINGE IVP SCH (16:07)
[2021-11-30] MEDS: ALBUTEROL NEB 2.5 MG/3 ML INH SCH (18:12)
[2021-11-30] MEDS: SODIUM CHLORIDE FLUSH 0.9% 10 ML SYRINGE IVP PRN (21:15)
[2021-11-30] MEDS: methylPREDNISolone SUCCINATE 40 MG/ML VIAL IVP SCH (21:15)
--- NOTE | 2021-11-30 23:25 | Ultrasound Report ---
PROCEDURE: Duplex Ext Veins Bilateral INDICATIONS: MARY L WEST TECHNIQUE: Real-time imaging, as well as color and pulse Doppler interrogation, were performed of the deep veins of both legs from the inguinal ligament to the popliteal fossa. COMPARISON: FINDINGS: The superficial femoral, popliteal, calf veins were unable to be compressed due to large b parisa habitus. Color and pulse Doppler demonstrate grossly patent flow. There is augmentation response to distal compression maneuver. There are bilateral knee joint effusions demonstrated. IMPRESSION: 1. Limited study due to large body habitus. 2. No definite evidence of occlusive deep venous thrombosis in the lower extremities. Reviewed by: Alireza Meneses MD on 11/30/2021 11:29 PM PDT Approved by: Alireza Meneses MD on 11/30/2021 11:29 PM PDT Station ID: [id number]
[2021-12-01] MEDS: SODIUM CHLORIDE FLUSH 0.9% 10 ML SYRINGE IVP SCH ×3 (01:00→14:15)
[2021-12-01] MEDS: ALBUTEROL NEB 2.5 MG/3 ML INH SCH ×5 (03:19→13:17)
[2021-12-01 05:30] LABS: ABG HCO3 34.2 mmol/L (22.0-26.0); ABG PH 7.35 (7.35-7.45); ABG PO2 78 mmHg (80-100)
[2021-12-01 05:31] LABS: ABG BASE EXCESS 6.5 mmol/L (-2.0-3.0); ABG OXYGEN SATURATION 94 % (94-98); ABG TCO2 36.2 MMOL/L (21.0-29.0); ALLEN TEST POSITIVE
[2021-12-01 05:33] LABS: ABG PCO2 64 mmHg (34-45)
[2021-12-01 05:54] LABS: BASOPHILS % (AUTO) 0.5 %; EOSINOPHILS % (AUTO) 0.1 %; HCT - HEMATOCRIT 41.2 % (42.0-52.0); HGB - HEMOGLOBIN 12.4 g/dL (14.0-18.0); LYMPHOCYTES % (AUTO) 6.9 %; MEAN CORPUSCULAR HEMOGLOBIN 27.7 pg (27.0-31.0); MEAN CORPUSCULAR HGB CONC 30.1 g/dL (32.0-36.0); MEAN PLATELET VOLUME 9.8 fL (7.4-11.4); MONOCYTES % (AUTO) 3.5 %; NEUTROPHILS % (AUTO) 83.2 %; PLT - PLATELET COUNT 228 10^3/uL (130-450); RED BLOOD COUNT 4.48 10^6/uL (4.70-6.10); RED CELL DISTRIBUTION WIDTH 16.4 % (12.0-15.0)
[2021-12-01 06:02] LABS: ABNORMAL LYMPHS % (MANUAL) 0 %
[2021-12-01 06:06] LABS: CALCIUM 9.1 mg/dL (8.5-10.3); CREATININE 0.6 mg/dL (0.6-1.2); POTASSIUM 4.9 mmol/L (3.5-5.0)
[2021-12-01] MEDS: methylPREDNISolone SUCCINATE 40 MG/ML VIAL IVP SCH ×2 (06:16→14:15)
[2021-12-01 06:20] LABS: BAND NEUTROPHILS % (MANUAL) 13 %; DIFFERENTIAL COMMENT MANUAL DIFFERENTIAL; LYMPHOCYTES # (MANUAL) 0.6 10^3/uL (1.5-3.5); LYMPHOCYTES % (MANUAL) 5 %; METAMYELOCYTES % (MANUAL) 1 %; MONOCYTES # (MANUAL) 0.1 10^3/uL (0.0-1.0); NEUTROPHILS # (MANUAL) 11.2 10^3/uL (1.5-6.6); PLATELET ESTIMATE, MANUAL NORMAL (130-450,000) (NORMAL); RBC MORPHOLOGY (MULTIPLE) NORMAL APPEARANCE (NORMAL)
--- NOTE | 2021-12-01 07:42 | XRAY Report ---
PROCEDURE: Chest 1 View X-Ray INDICATIONS: may have "chf" cxr bc of technique, need followup TECHNIQUE: One view of the chest was acquired. COMPARISON: 11/30/2021 FINDINGS: Surgical changes and devices: None. Lungs and pleura: Low lung volumes. No focal consolidation. Crowding of the interstitium may be an ar tifact of low lung volumes versus pulmonary edema. No overt effusion. Mediastinum: Mediastinal contours appear normal. Cardiomegaly. Bones and chest wall: No suspicious bony lesions. Overlying soft tissues appear unremarkable. IMPRESSION: Possible pulmonary edema. Cardiomegaly. Low lung volumes can create the appearance of interstitial cr owding. Reviewed by: Osmin Hawk MD on 12/01/2021 7:41 AM PDT Approved by: Osmin Hawk MD on 12/01/2021 7:41 AM PDT Station ID: [id number]
[2021-12-01] MEDS: cefTRIAXone 2 GM in SODIUM CHLORIDE 0.9% MINIBAG 100 ML IV SCH (08:11)
[2021-12-01] MEDS: SODIUM CHLORIDE FLUSH 0.9% 10 ML SYRINGE IVP PRN (08:13)
[2021-12-01] MEDS: AZITHROMYCIN INJ 500 MG in SODIUM CHLORIDE 0.9% 250 ML IV SCH (08:52)
--- NOTE | 2021-12-01 11:21 | PHARMACY PROGRESS NOTE ---
- Best Possible Medication History Admit Date and Time: 11/30/21 1344 Processed by: Pharmacy Medication History completed: Yes Secondary Source(s): Pharmacy records, Insurance records As the person ultimately responsible for medication therapy, providers are able to order a medication from an existing home medication list in [facility] via the "Reconcile Routine" prior to Confirmation of that medication by product support sales representative. Such practice is discouraged except when the physician, in their clinical judgment, deems that a medical need exists for a medication without regard to previous use.
--- NOTE | 2021-12-01 14:42 | PROVIDER PROGRESS NOTE ---
Subjective - Prog Note Date Prog Note Date: 12/01/21 Prog Note Time: 14:40 - Subjective Pt reports feeling: Improved Subjective: He is less short of breath, and does not cough unless he has to talk. But if he has to get up to sit up, or is starting to have a conversation with me, the coughing starts and tachypnea starts. But overall he does feel better than admission. Less and less orange phlegm. Cough is just more dry nonproductive now. No chest pain. No palpitations. Legs do not hurt. Overnight, he did not have his CPAP machine. We came to find out that he has been using the machine it was recalled and he forgot to bring it in for us. He was having episodes of what he felt was sleep paralysis. Coughing more, desaturating, so we put him on her own BiPAP machine here. He did well with that. Current Medications - Current Medications Current Medications: Active Medications Acetaminophen (Acetaminophen 325 Mg Tablet) 650 mg PO Q4HR PRN PRN Reason: Pain 1 to 4, or Fever Albuterol (Albuterol Neb 2.5 Mg/3 Ml) 2.5 mg INH Q4HR [facility] Stop: 12/01/21 16:59 Last Admin: 12/01/21 13:17 Dose: 2.5 mg Enoxaparin Sodium (Enoxaparin 40 Mg/0.4 Ml Syringe) 40 mg SUBQ BID [facility] Azithromycin 500 mg/ Sodium (Chloride) 250 mls @ 250 mls/hr IV DAILY [facility] Stop: 12/02/21 09:59 Last Infusion: 12/01/21 10:00 Dose: Infused Ceftriaxone Sodium 2 gm/ (Sodium Chloride) 100 mls @ 200 mls/hr IV DAILY [facility] Stop: 12/05/21 09:29 Last Infusion: 12/01/21 08:45 Dose: Infused Ondansetron HCl (Ondansetron Odt 4 Mg Tablet) 4 mg TL Q6HR PRN PRN Reason: Nausea / Vomiting Ondansetron HCl (Ondansetron 4 Mg/2 Ml Vial) 4 mg IVP Q6HR PRN PRN Reason: Nausea / Vomiting Oxycodone HCl (Oxycodone 5 Mg Tablet) 5 mg PO Q4HR PRN PRN Reason: Pain 5 to 7 Sodium Chloride (Sodium Chloride Flush 0.9% 10 Ml Syringe) 10 ml IVP PRN PRN PRN Reason: NEEDED PER PROVIDER ORDERS Last Admin: 12/01/21 08:13 Dose: 10 ml Sodium Chloride (Sodium Chloride Flush 0.9% 10 Ml Syringe) 10 ml IVP 0100,0900,1700 MARINO Last Admin: 12/01/21 14:15 Dose: 10 ml Furosemide [Lasix] 20 mg PO DAILY 11/30/21 Objective - Vital Signs/Intake & Output Reviewed Vital Signs: Yes Vital Signs: Vital Signs x48h Temp Pulse Pulse Resp BP Pulse Ox 12/01/21 13:18 89 20 12/01/21 09:00 89 23 12/01/21 08:00 37.2 C 116 H 26 H 152/77 H 93 Intake & Output: Intake & Output 11/28/21 11/29/21 11/30/21 12/01/21 23:59 23:59 23:59 23:59 Intake Total 2186 2210 Output Total 3800 0937 Balance -8364 -8273 - Objective General Appearance: positive: No acute distress, Alert, Other (Super obese young male sitting comfortably in a specialized bariatric bed. No acute distress. Dry spasmodic cough does start when he has to speak to me. But no respiratory distress.) Eyes Bilateral: positive: PERRL, EOMI ENT: positive: No signs of dehydration Neck: positive: No JVD. negative: Stiff neck Respiratory: positive: No respiratory distress. negative: Wheezes, Rales, Rhonchi Cardiovascular: positive: Regular rate & rhythm. negative: Gallop/S4, Friction rub Abdomen: positive: Non-tender, No organomegaly, Nml bowel sounds, No distention Skin: positive: Warm, Dry Extremities: positive: Full ROM, Pedal edema (Much less severe than yesterday when I admitted him but still present), Other (Legs and arms are 3-4 times normal size because of weight.) Neurologic/Psychiatric: positive: Oriented x3, CN's nml (2-12), Motor nml, Sensation nml - Lab Results Fish Bones: 12/01/21 05:38 12/01/21 05:38 Other Labs: Lab Results x24hrs 12/01/21 12/01/21 12/01/21 Range/Units 05:38 05:38 05:25 WBC 12.0 H (4.8-10.8) x10^3/uL RBC 4.48 L (4.70-6.10) 10^6/uL Hgb 12.4 L (14.0-18.0) g/dL Hct 41.2 L (42.0-52.0) % MCV 92.0 (80.0-94.0) fL MCH 27.7 (27.0-31.0) pg MCHC 30.1 L (32.0-36.0) g/dL RDW 16.4 H (12.0-15.0) % Plt Count 228 (130-450) 10^3/uL MPV 9.8 (7.4-11.4) fL Neut # (Auto) Not Reportable Lymph # (Auto) Not Reportable [place] # (Auto) Not Reportable Eos # (Auto) Not Reportable Baso # (Auto) Not Reportable Absolute Nucleated RBC Not Reportable Total Counted 100 Band Neuts % (Manual) 13 H (0 - 10) % Abnorm Lymph % (Manual) 0 % Metamyelocytes % 1 H ( - 0) % Nucleated RBC % Not Reportable Neutrophils # (Manual) 11.2 H (1.5-6.6) 10^3/uL Lymphocytes # (Manual) 0.6 L (1.5-3.5) 10^3/uL Monocytes # (Manual) 0.1 (0.0-1.0) 10^3/uL Eosinophils # (Manual) 0.0 (0-0.7) 10^3/uL Basophils # (Manual) 0.0 (0-0.1) 10^3/uL Differential Comment MANUAL DIFFERENTIAL Platelet Estimate NORMAL (130-450,000) (NORMAL) RBC Morph Micro Appear NORMAL APPEARANCE (NORMAL) D-Dimer (200.0-255.0) ng/mL Bld Gas Analysis Time 0528 Sample Site RIGHT RADIAL ABG pH 7.35 (7.35-7.45) ABG pCO2 64 H* (34-45) mmHg ABG pO2 78 L (80-100) mmHg ABG HCO3 34.2 H (22.0-26.0) mmol/L ABG Total CO2 36.2 H (21.0-29.0) MMOL/L ABG O2 Saturation 94 (94-98) % ABG Base Excess 6.5 H (-2.0-3.0) mmol/L Corby Test POSITIVE O2 Delivery Device NASAL CANNULA O2 Liters/Min 6.00 LPM Sodium 138 (135-145) mmol/L Potassium 4.9 (3.5-5.0) mmol/L Chloride 98 L (101-111) mmol/L Carbon Dioxide 34 H (21-32) mmol/L Anion Gap 6.0 (6-13) BUN 10 (6-20) mg/dL Creatinine 0.6 (0.6-1.2) mg/dL Estimated GFR (MDRD) 156 (>89) Glucose 130 H (70-100) mg/dL Calcium 9.1 (8.5-10.3) mg/dL Procalcitonin (<0.5) ng/mL 11/30/21 11/30/21 Range/Units 18:10 12:58 WBC (4.8-10.8) x10^3/uL RBC (4.70-6.10) 10^6/uL Hgb (14.0-18.0) g/dL Hct (42.0-52.0) % MCV (80.0-94.0) fL MCH (27.0-31.0) pg MCHC (32.0-36.0) g/dL RDW (12.0-15.0) % Plt Count (130-450) 10^3/uL MPV (7.4-11.4) fL Neut # (Auto) Lymph # (Auto) [place] # (Auto) Eos # (Auto) Baso # (Auto) Absolute Nucleated RBC Total Counted Band Neuts % (Manual) (0 - 10) % Abnorm Lymph % (Manual) % Metamyelocytes % ( - 0) % Nucleated RBC % Neutrophils # (Manual) (1.5-6.6) 10^3/uL Lymphocytes # (Manual) (1.5-3.5) 10^3/uL Monocytes # (Manual) (0.0-1.0) 10^3/uL Eosinophils # (Manual) (0-0.7) 10^3/uL Basophils # (Manual) (0-0.1) 10^3/uL Differential Comment Platelet Estimate (NORMAL) RBC Morph Micro Appear (NORMAL) D-Dimer 673.1 H (200.0-255.0) ng/mL Bld Gas Analysis Time Sample Site ABG pH (7.35-7.45) ABG pCO2 (34-45) mmHg ABG pO2 (80-100) mmHg ABG HCO3 (22.0-26.0) mmol/L ABG Total CO2 (21.0-29.0) MMOL/L ABG O2 Saturation (94-98) % ABG Base Excess (-2.0-3.0) mmol/L Corby Test O2 Delivery Device O2 Liters/Min LPM Sodium (135-145) mmol/L Potassium (3.5-5.0) mmol/L Chloride (101-111) mmol/L Carbon Dioxide (21-32) mmol/L Anion Gap (6-13) BUN (6-20) mg/dL Creatinine (0.6-1.2) mg/dL Estimated GFR (MDRD) (>89) Glucose (70-100) mg/dL Calcium (8.5-10.3) mg/dL Procalcitonin 0.08 (<0.5) ng/mL ABX Reporting Has patient been on IV antibiotics over the past 48 hours?: Yes Assessment/Plan - Problem List (1) Acute respiratory failure with hypoxia Impression: He was admitted with the possibility of having acute heart failure. BNP was normal. I did an echocardiogram and it shows an ejection fraction of 55 to 60%. We cannot assess his right ventricle. Technically difficult to do an echo on this neeru gentleman who is too large. A repeat chest x-ray was done as well. Radiology is interpreting it as crowding of interstitium causing an artifact of low lung volumes versus pulmonary edema. No effusion. He does appear to have cardiomegaly on chest x-ray but not echo. Venous duplex studies were done since I cannot do VQ scan or CT pulmonary angiogram. He has no occlusive DVTs in the legs. As such, I think his shortness of breath and respiratory failure with hypoxia is due to early lung disease such as pneumonia. He may also have chronic obesity hypoventilation syndrome and chronic obstructive sleep apnea contributing to hypoxia that was not diagnosed before. Plan: Continue to treat as pneumonia (2) Pneumonia Conclusion/Plan: Cough, hemoptysis, shortness of breath. Abnormal chest x-ray. He does have an elevated white cell count but no fever.Procalcitonin level is low. Blood cultures negative. White cell count remains 12,000 without any change. He is 13% bandemia, 1% metamyelocytes, and platelets are 228. Treat cautiously as pneumonia. States he has a history of asthma, I went ahead and added steroids yesterday. He received 3 doses of IV Solu-Medrol. He feels like they help. As such I will give him a Medrol Dosepak to continue a burst of steroids with tapering. Continue Rocephin for total of 5 days. Complete azithromycin after 3 doses. (3) Congestive heart failure Conclusion/Plan: I am suspicious of this diagnosis and this gentleman has not had this diagnosis before. I believe he is chronic lymphedema from his morbid obesity and mechanical issues but not true congestive heart failure in the past. He may have chronic leg edema because of lymphedema and his size. The recent cough, possible lung infection on top of a patient with obstructive sleep apnea and asthma may have resulted in increasing pulmonary pressures and subsequent right- sided heart failure/leg edema. The abnormalities were seen on chest x-ray may be strictly due to body habitus and chest x-ray technique. BNP is normal. He has received a dose of Lasix in the emergency room but I will hold off on giving him anymore. The echocardiogram does not confirm reduced ejection fraction. Unfortunately were unable to visualize the right side very well because of his body habitus. If he does have congestive heart failure it may be cor pulmonale. Repeating the chest x-ray was not helpful. Since he is improving with antibiotics, I will hold off giving steroids. He will need an outpatient work-up to establish "congestive heart failure" since were unable to do so with his stay. Qualifiers: Heart failure chronicity: unspecified (4) ALONDRA on CPAP Conclusion/Plan: The patient has been seen by the sleep lab. He did have his own equipment. He has been using it at his car where he sleeps. But that equipment was recalled a year ago. As such the hospital will be using its own equipment to help him at night. (5) Super obesity Conclusion/Plan: He is seen erratically in his primary care provider office. They have discussed weight loss attempts. So far, unfortunately, his attempts have been unsuccessful. He has plans to establish himself with a bariatric clinic. He really wants to start the process by January and is looking at a lap band surgery to help with weight loss. (3) Congestive heart failure Qualifiers: Heart failure chronicity: unspecified
[2021-12-01] MEDS: ALBUTEROL NEB 2.5 MG/3 ML INH STA (17:05)
[2021-12-01] MEDS: ENOXAPARIN 40 MG/0.4 ML SYRINGE SUBQ SCH (20:23)
[2021-12-02] MEDS: SODIUM CHLORIDE FLUSH 0.9% 10 ML SYRINGE IVP SCH ×4 (00:45→21:41)
[2021-12-02 05:53] LABS: BASOPHILS % (AUTO) 0.3 %; EOSINOPHILS % (AUTO) 0.1 %; HCT - HEMATOCRIT 41.4 % (42.0-52.0); HGB - HEMOGLOBIN 12.1 g/dL (14.0-18.0); LYMPHOCYTES # (AUTO) 1.9 10^3/uL (1.5-3.5); LYMPHOCYTES % (AUTO) 12.7 %; MEAN CORPUSCULAR HEMOGLOBIN 27.6 pg (27.0-31.0); MEAN CORPUSCULAR HGB CONC 29.2 g/dL (32.0-36.0); MEAN CORPUSCULAR VOLUME 94.5 fL (80.0-94.0); MEAN PLATELET VOLUME 9.8 fL (7.4-11.4); MONOCYTES # (AUTO) 1.3 10^3/uL (0.0-1.0); MONOCYTES % (AUTO) 8.8 %; NEUTROPHILS % (AUTO) 74.9 %; PLT - PLATELET COUNT 237 10^3/uL (130-450); RED BLOOD COUNT 4.38 10^6/uL (4.70-6.10); RED CELL DISTRIBUTION WIDTH 16.5 % (12.0-15.0); WHITE BLOOD COUNT 14.7 x10^3/uL (4.8-10.8)
[2021-12-02 06:14] LABS: CALCIUM 9.3 mg/dL (8.5-10.3); CREATININE 0.7 mg/dL (0.6-1.2)
[2021-12-02] MEDS ORDERED: methylPREDNISolone 4 MG TABLET PO ONE (08:00)
[2021-12-02] MEDS: cefTRIAXone 2 GM in SODIUM CHLORIDE 0.9% MINIBAG 100 ML IV SCH (08:26)
[2021-12-02] MEDS: ENOXAPARIN 40 MG/0.4 ML SYRINGE SUBQ SCH ×2 (08:28→21:40)
[2021-12-02] MEDS: AZITHROMYCIN INJ 500 MG in SODIUM CHLORIDE 0.9% 250 ML IV SCH (09:28)
--- NOTE | 2021-12-02 17:11 | PROVIDER PROGRESS NOTE ---
Progress Note December 02, 2021 5:02 PM He feels like there has been a change for the better. Between yesterday and today his cough is much, much less. He can now actually have conversations without breaking into a spasmodic cough. His chest tightness is better. His shortness of breath is better. Leg edema is improved. However, still hypoxic. Requiring 3 to 5 L. Sometimes with Oxymizer sometimes not. Active Medications Acetaminophen (Acetaminophen 325 Mg Tablet) 650 mg PO Q4HR PRN PRN Reason: Pain 1 to 4, or Fever Enoxaparin Sodium (Enoxaparin 40 Mg/0.4 Ml Syringe) 40 mg SUBQ BID [facility] Last Admin: 12/02/21 08:28 Dose: 40 mg Ceftriaxone Sodium 2 gm/ (Sodium Chloride) 100 mls @ 200 mls/hr IV DAILY [facility] Stop: 12/05/21 09:29 Last Infusion: 12/02/21 08:56 Dose: Infused Methylprednisolone (Methylprednisolone 4 Mg Tablet) 20 mg PO ONCE ONE Stop: 12/03/21 08:01 Methylprednisolone (Methylprednisolone 4 Mg Tablet) 16 mg PO ONCE ONE Stop: 12/04/21 08:01 Methylprednisolone (Methylprednisolone 4 Mg Tablet) 12 mg PO ONCE ONE Stop: 12/05/21 08:01 Methylprednisolone (Methylprednisolone 4 Mg Tablet) 8 mg PO ONCE ONE Stop: 12/06/21 08:01 Methylprednisolone (Methylprednisolone 4 Mg Tablet) 4 mg PO ONCE ONE Stop: 12/07/21 08:01 Ondansetron HCl (Ondansetron Odt 4 Mg Tablet) 4 mg TL Q6HR PRN PRN Reason: Nausea / Vomiting Ondansetron HCl (Ondansetron 4 Mg/2 Ml Vial) 4 mg IVP Q6HR PRN PRN Reason: Nausea / Vomiting Oxycodone HCl (Oxycodone 5 Mg Tablet) 5 mg PO Q4HR PRN PRN Reason: Pain 5 to 7 Sodium Chloride (Sodium Chloride Flush 0.9% 10 Ml Syringe) 10 ml IVP PRN PRN PRN Reason: NEEDED PER PROVIDER ORDERS Last Admin: 12/01/21 08:13 Dose: 10 ml Sodium Chloride (Sodium Chloride Flush 0.9% 10 Ml Syringe) 10 ml IVP 0100,0900,1700 [facility] Last Admin: 12/02/21 16:04 Dose: 10 ml Furosemide [Lasix] 20 mg PO DAILY 11/30/21 Temperature is 36.7. Heart rate 78. Blood pressure 132/68. Respirations 22. Currently on 3 L nasal cannula 93%. SuperMorbidly obese young male sitting in chair, eating dinner comfortably, watching TV, able to have full sentences without spasmodic coughing or tachypnea Neck is supple, unable to assess for JVD because of girth Diminished breath sounds at the bases but no crackles, no rhonchi, no wheezing I hear good breath sounds. Usually obese pannus for his belly. I really cannot assess for organomegaly. But he is got normal hypoactive bowel sounds. Abdomen is soft. There is no rigidity. On extremities he has thick woody edema of bilateral lower extremities with hyperkeratosis of the skin. Subcutaneous nodules that are small and probably about 3 mm on the upper lateral calves. No redness, no skin breakdown, no heat. He has retraction of the skin from where the acute edema has resolved and is left him with this chronic edema and lymphedema. Sodium 141. Potassium 5.0. Carbon dioxide is risen to 39 this morning. Anion gap 6. BUN 16 creatinine 0.7 white cell count high at 14.7 today. I started him on steroids. Assessment/plan 1. Acute respiratory failure with hypoxia has almost completely resolved. He is needing less and less oxygen but still on 3 L. The cause we are attributing to some type of infection. Possibly be bacterial, possibly viral. I do not think he has congestive heart failure. Discharge when oxygen level acceptable on room air. Echocardiogram showed preserved ejection fraction. We were unable to see the right side of his heart. If he does have congestive heart failure is going to be cor pulmonale but I cannot prove it with this admission. He is improving with antibiotics. 2. Pneumonia. Presenting as cough, hemoptysis, shortness of breath. Abnormal chest x-ray. Elevated white cell count. No fever. Procalcitonin level was low. Blood cultures negative. White cell count has come up to 14.7 today. But clinically he is showing good signs of improvement. 3. Obstructive sleep apnea on CPAP. We are using her own equipment to help him at night since his equipment has been recalled and he does get hypoxic.
[2021-12-03 05:11] LABS: BASOPHILS # (AUTO) 0.1 10^3/uL (0.0-0.1); BASOPHILS % (AUTO) 0.5 %; EOSINOPHILS # (AUTO) 0.1 10^3/uL (0.0-0.7); EOSINOPHILS % (AUTO) 0.8 %; HCT - HEMATOCRIT 39.3 % (42.0-52.0); HGB - HEMOGLOBIN 11.5 g/dL (14.0-18.0); LYMPHOCYTES # (AUTO) 1.7 10^3/uL (1.5-3.5); LYMPHOCYTES % (AUTO) 13.3 %; MEAN CORPUSCULAR HEMOGLOBIN 27.6 pg (27.0-31.0); MEAN CORPUSCULAR HGB CONC 29.3 g/dL (32.0-36.0); MEAN CORPUSCULAR VOLUME 94.5 fL (80.0-94.0); MEAN PLATELET VOLUME 9.8 fL (7.4-11.4); MONOCYTES # (AUTO) 1.4 10^3/uL (0.0-1.0); MONOCYTES % (AUTO) 10.6 %; NEUTROPHILS # (AUTO) 9.4 10^3/uL (1.5-6.6); NEUTROPHILS % (AUTO) 72.6 %; PLT - PLATELET COUNT 208 10^3/uL (130-450); RED BLOOD COUNT 4.16 10^6/uL (4.70-6.10); RED CELL DISTRIBUTION WIDTH 16.4 % (12.0-15.0)
[2021-12-03 05:26] LABS: CREATININE 0.7 mg/dL (0.6-1.2)
[2021-12-03 05:44] LABS: CALCIUM 8.9 mg/dL (8.5-10.3); POTASSIUM 4.6 mmol/L (3.5-5.0)
[2021-12-03] MEDS: SODIUM CHLORIDE FLUSH 0.9% 10 ML SYRINGE IVP SCH ×3 (07:47→21:12)
[2021-12-03] MEDS: ENOXAPARIN 40 MG/0.4 ML SYRINGE SUBQ SCH ×2 (07:47→21:11)
[2021-12-03] MEDS: cefTRIAXone 2 GM in SODIUM CHLORIDE 0.9% MINIBAG 100 ML IV SCH (07:47)
[2021-12-03] MEDS ORDERED: methylPREDNISolone 4 MG TABLET PO ONE (08:00)
--- NOTE | 2021-12-03 16:24 | PROVIDER PROGRESS NOTE ---
Progress Note June 05, 2021 4:21 PM Starting yesterday, has had a definite improvement. Less cough. Better appetite. Up in the room. Still hypoxic. We have gotten him down to 1 L to maintain his O2 sats. Yesterday he was requiring 3 to 5 L. Cough is still present but much less severe. Only minimal now. He can speak and eat without having a coughing spasm. Temperature is 36.5. Heart rate 86. Blood pressure 136/82. Respirations 20. 92% on 1 L. Still at 302.5 kg. Super obese pleasant male looks stated age. Unable to assess for JVD due to neck girth. But supple Diminished breath sounds at the bases and overall breath sounds diffusely diminished due to his increased AP diameter. But he is moving air. There is no wheezing. No rib retraction. No crackles or rhonchi. Regular rate and rhythm Super obese abdomen, nontender normal bowel sounds Legs of the same woody edema but no redness no heat. Alert, oriented, able to walk to the bathroom Carbon dioxide 38. BUN 19 creatinine 0.7. White cell count is 13. 1. Acute respiratory failure with hypoxia has almost completely resolved. He is needing less and less oxygen and went from 3 L yesterday to 1 L today. The cause we are attributing to some type of infection. Possibly be bacterial, possibly viral. I do not think he has congestive heart failure. Almost at goal for dc to renetta off O2. Echocardiogram showed preserved ejection fraction. We were unable to see the right side of his heart. If he does have congestive heart failure is going to be cor pulmonale but I cannot prove it with this admission. He is improving with antibiotics. HUMBERTO key continue to wean O2 with goal of >89% on RA. He has been changed from IV steroids to medrol dose pack and is tapering that on schedule. continue nebs prn 2. Pneumonia. Presenting as cough, hemoptysis, shortness of breath. Abnormal chest x-ray. Elevated white cell count. No fever. Procalcitonin level was low. Blood cultures negative. White cell count has come up to 14.7 today. But clinically he is showing good signs of improvement. Day #4/5 for Rocephin. Azithromycin 500 mg for 3 days completed 12/02. 3. Obstructive sleep apnea on CPAP. We are using his own equipment to help him at night since his equipment has been recalled and he does get hypoxic.
[2021-12-04] MEDS ORDERED: methylPREDNISolone 4 MG TABLET PO ONE (08:00)
[2021-12-04] MEDS: cefTRIAXone 2 GM in SODIUM CHLORIDE 0.9% MINIBAG 100 ML IV SCH (08:23)
[2021-12-04] MEDS: ENOXAPARIN 40 MG/0.4 ML SYRINGE SUBQ SCH ×2 (08:24→20:24)
[2021-12-04] MEDS: SODIUM CHLORIDE FLUSH 0.9% 10 ML SYRINGE IVP SCH ×2 (08:24→20:24)
--- NOTE | 2021-12-04 11:35 | PROVIDER PROGRESS NOTE ---
Progress Note December 04, 2021 11:29 AM Mr. Saldana is doing so well. No more coughing. Eating well. Able to carry on normal conversations where he is spontaneously laughing and gesticulating without any shortness of breath. However, his desats are down to 86% on room air. Since he is homeless it would not be an easy proposition to send him home with oxygen. He tells me that his CPAP machine was recalled a year ago. Never really followed up on that. He has not been restudied. He tells me that when he had a sleep study had to be done in his home because he was too big for the beds here at our sleep lab. He is going to have to get a new CPAP machine prescribed by his primary care provider. Temperature is 36.7. Heart rate is 94. Blood pressure 118/48. 22 respiration. 88% on room air. 92% on half a liter Exceedingly pleasant super obese young male He has always had very diminished breath sounds on physical exam. Because of his AP diameter it is hard to hear any air movement. But what I do hear is diminished, clear, no crackles or rhonchi. No wheezing. Regular rate and rhythm. Abdomen is super obese. Unable to assess for organomegaly. No pain. Last bowel movement yesterday The legs are large in size. There is no tenseness, no redness. He has sturdy woody edema that is chronic with hyperkeratosis. There is no skin breakdown. No heat. No bruising. Calluses on his feet. 1. Acute respiratory failure has resolved and now with continued hypoxia . When he was admitted he needed 6 L. At times he needed 7 L. Since treatment with antibiotics, nebulizers and steroids his oxygen requirements have steadily declined. He only needs half a liter at this time. But when he is taken off oxygen, within minutes he desats. We have evaluated him for congestive heart failure. Echocardiogram shows preserved ejection fraction. Echo was unable to assess right-sided heart. I suspect this gentleman has some evidence of pul monary hypertension with cor pulmonale because of his obstructive sleep apnea in size. I do not suspect left-sided heart failure. As such we have not been giving him diuretics and a focus strictly on lung disease. Villalta was discontinued December 03. Plan: Oxygen desat study with respiratory therapy just to formally evaluate and document in the chart I will call his primary care provider office to see if he can be referred to a sleep study and work get a new prescription for CPAP machine. I will also contact the sleep lab. Continue to taper steroids, today is the last day for Rocephin. 2. Pneumonia. Presenting as cough, hemoptysis, shortness of breath. Abnormal chest x-ray. Elevated white cell count. No fever. Procalcitonin level was low. Blood cultures negative. White cell count has remained elevated but not clinical problems with it. Good signs of improvement. Day #5/ for Rocephin. Azithromycin 500 mg for 3 days completed 12/02. 3. Obstructive sleep apnea on CPAP. We are using his own equipment to help him at night since his equipment has been recalled and he does get hypoxic.When he goes home, unfortunately, he will have to use his recalled equipment until he get new equipment. He is homeless. Lives out of his car. As such I do not think I can send him home with oxygen right now.
[2021-12-05] MEDS: SODIUM CHLORIDE FLUSH 0.9% 10 ML SYRINGE IVP SCH ×4 (07:26→23:40)
--- NOTE | 2021-12-05 07:44 | PROVIDER PROGRESS NOTE ---
Assessment/Plan - Problem List (1) Acute respiratory failure with hypoxia Assessment/Plan: Acutely likely secondary to pneumonia. Chronically patient has sleep apnea. Patient completed 3 days treatment of azithromycin. He will receive his last dose of Rocephin today 12/05/2021 On a methylprednisolone taper Patient required 2 L of oxygen via nasal cannula to keep his oxygen saturation greater than 90% with activity. Considering that he is homeless and will require a concentrator with the supplemental oxygen, could not discharge him today. (2) Pneumonia Assessment/Plan: WBCs 10.7. Patient afebrile. Patient completed 3 days treatment of azithromycin. He will receive his last dose of Rocephin today 12/05/2021 On a methylprednisolone taper (3) ALONDRA on CPAP Assessment/Plan: Continue CPAP while in the hospital. (4) Super obesity Assessment/Plan: Patient has a BMI of 90. Will encourage diet and exercise. - Current Meds Current Meds: Current Medications Generic Name Dose Route Start Last Admin Trade Name Freq PRN Reason Stop Dose Admin Enoxaparin Sodium 40 mg 12/01/21 21:00 12/04/21 20:24 Enoxaparin 40 Mg/0.4 Ml Syringe SUBQ 40 mg BID MARINO Administration Ceftriaxone Sodium 2 gm/ 100 mls @ 200 mls/hr 12/01/21 09:00 12/04/21 08:53 Sodium Chloride IV 12/05/21 09:29 Infused DAILY MARINO Infusion Sodium Chloride 10 ml 11/30/21 13:44 12/01/21 08:13 Sodium Chloride Flush 0.9% 10 Ml Syringe IVP 10 ml PRN PRN Administration NEEDED PER PROVIDER ORDERS Sodium Chloride 10 ml 11/30/21 17:00 12/05/21 07:26 Sodium Chloride Flush 0.9% 10 Ml Syringe IVP 10 ml 0100,0900,1700 MARINO Administration - Lab Result Fish Bone Diagrams: 12/05/21 07:50 12/05/21 07:50 Subjective - Subjective Patient Reports: Other (He was resting comfortably in the bedside chair at time of visit. Denied dyspnea at rest. However oxygen saturation dropped to the 80s with ambulation. Coarse breath sounds on auscultation of lung with no wheezing.) Objective Vital Signs: Vital Signs - 24 hr 12/04/21 12/04/21 12/04/21 07:55 09:45 10:00 Temperature Heart Rate Heart Rate [ Brachial] Respiratory Rate Blood Pressure [Left Radial artery] O2 Saturation 92 88 L 92 12/04/21 12/04/21 12/04/21 12:41 14:00 15:35 Temperature 37.1 C Heart Rate 112 H Heart Rate [ 90 Brachial] Respiratory 22 Rate Blood Pressure 152/79 H [Left Radial artery] O2 Saturation 92 90 L 12/04/21 12/04/21 12/05/21 16:04 23:52 07:21 Temperature 37.0 C 36.4 C L Heart Rate Heart Rate [ 98 86 Brachial] Respiratory 24 23 Rate Blood Pressure 141/77 H 122/66 [Left Radial artery] O2 Saturation 94 96 90 L 12/05/21 07:30 Temperature Heart Rate 105 H Heart Rate [ Brachial] Respiratory Rate Blood Pressure [Left Radial artery] O2 Saturation Oxygen O2 Source Room air Oxygen Flow Rate 4 I&O (Last 24 Hrs): Intake and Output Totals x24h 12/03/21 12/04/21 12/05/21 23:59 23:59 23:59 Intake Total 4700 3340 Output Total 3600 Balance 1100 3340 General: Alert, Oriented x3, No acute distress, Other (morbid obesity) HEENT: PERRLA, EOMI Neck: Supple, No JVD Neuro: Alert, Non Focal, Oriented Times 3 Cardiovascular: Regular rate, Normal S1, Normal S2 Respiratory: Chest non-tender, No respiratory distress, Breath sounds nml Abdomen: Normal bowel sounds, Soft, No tenderness Skin: No rashes, No breakdown, No significant lesion - Results Results: Laboratory Results WBC 13.0 x10^3/uL (4.8-10.8) H 12/03/21 04:49 RBC 4.16 10^6/uL (4.70-6.10) L 12/03/21 04:49 Hgb 11.5 g/dL (14.0-18.0) L 12/03/21 04:49 Hct 39.3 % (42.0-52.0) L 12/03/21 04:49 MCV 94.5 fL (80.0-94.0) H 12/03/21 04:49 MCH 27.6 pg (27.0-31.0) 12/03/21 04:49 MCHC 29.3 g/dL (32.0-36.0) L 12/03/21 04:49 RDW 16.4 % (12.0-15.0) H 12/03/21 04:49 Plt Count 208 10^3/uL (130-450) 12/03/21 04:49 MPV 9.8 fL (7.4-11.4) 12/03/21 04:49 Neut # (Auto) 9.4 10^3/uL (1.5-6.6) H 12/03/21 04:49 Lymph # (Auto) 1.7 10^3/uL (1.5-3.5) 12/03/21 04:49 Randolph # (Auto) 1.4 10^3/uL (0.0-1.0) H 12/03/21 04:49 Eos # (Auto) 0.1 10^3/uL (0.0-0.7) 12/03/21 04:49 Baso # (Auto) 0.1 10^3/uL (0.0-0.1) 12/03/21 04:49 Absolute Nucleated RBC 0.00 x10^3/uL 12/03/21 04:49 Total Counted 100 12/01/21 05:38 Band Neuts % (Manual) 13 % (0-10) H 12/01/21 05:38 Abnorm Lymph % (Manual) 0 % 12/01/21 05:38 Metamyelocytes % 1 % (-0) H 12/01/21 05:38 Nucleated RBC % 0.0 /100WBC 12/03/21 04:49 Neutrophils # (Manual) 11.2 10^3/uL (1.5-6.6) H 12/01/21 05:38 Lymphocytes # (Manual) 0.6 10^3/uL (1.5-3.5) L 12/01/21 05:38 Monocytes # (Manual) 0.1 10^3/uL (0.0-1.0) 12/01/21 05:38 Eosinophils # (Manual) 0.0 10^3/uL (0-0.7) 12/01/21 05:38 Basophils # (Manual) 0.0 10^3/uL (0-0.1) 12/01/21 05:38 Differential Comment MANUAL DIFFERENTIAL 12/01/21 05:38 Manual Slide Review Indicated 11/30/21 12:58 WBC Morphology (NORMAL) 11/30/21 12:58 Platelet Estimate NORMAL (130-450,000) (NORMAL) 12/01/21 05:38 Platelet Morphology NORMAL APPEARANCE (NORMAL) 11/30/21 12:58 RBC Morph Micro Appear NORMAL APPEARANCE (NORMAL) 12/01/21 05:38 D-Dimer 673.1 ng/mL (200.0-255.0) H 11/30/21 18:10 Bld Gas Analysis Time 52712/01/21 05:25 Sample Site RIGHT RADIAL 12/01/21 05:25 ABG pH 7.35 (7.35-7.45) 12/01/21 05:25 ABG pCO2 64 mmHg (34-45) H* 12/01/21 05:25 ABG pO2 78 mmHg (80-100) L 12/01/21 05:25 ABG HCO3 34.2 mmol/L (22.0-26.0) H 12/01/21 05:25 ABG Total CO2 36.2 MMOL/L (21.0-29.0) H 12/01/21 05:25 ABG O2 Saturation 94 % (94-98) 12/01/21 05:25 ABG Base Excess 6.5 mmol/L (-2.0-3.0) H 12/01/21 05:25 Corby Test POSITIVE 12/01/21 05:25 VBG pH 7.338 (7.31-7.41) 11/30/21 12:58 VBG pCO2 50.5 mmHg (41-51) 11/30/21 12:58 VBG pO2 38.5 mmHg (25-47) 11/30/21 12:58 VBG HCO3 26.5 mmol/L (23-28) 11/30/21 12:58 VBG Total CO2 28.1 mmol/L (24-29) 11/30/21 12:58 VBG O2 Saturation 70.9 % (60-80) 11/30/21 12:58 VBG Base Excess 0.0 mmol/L (-2 - +2) 11/30/21 12:58 O2 Delivery Device NASAL CANNULA 12/01/21 05:25 O2 Liters/Min 6.00 LPM 12/01/21 05:25 Sodium 138 mmol/L (135-145) 12/03/21 04:49 Potassium 4.6 mmol/L (3.5-5.0) 12/03/21 04:49 Chloride 91 mmol/L (101-111) L 12/03/21 04:49 Carbon Dioxide 38 mmol/L (21-32) H 12/03/21 04:49 Anion Gap 9.0 (6-13) 12/03/21 04:49 BUN 19 mg/dL (6-20) 12/03/21 04:49 Creatinine 0.7 mg/dL (0.6-1.2) 12/03/21 04:49 Estimated GFR (MDRD) 131 (>89) 12/03/21 04:49 Glucose 95 mg/dL (70-100) 12/03/21 04:49 Lactic Acid 1.1 mmol/L (0.5-2.2) 11/30/21 12:58 Calcium 8.9 mg/dL (8.5-10.3) 12/03/21 04:49 Phosphorus 4.1 mg/dL (2.5-4.6) 11/30/21 12:58 Magnesium 2.0 mg/dL (1.7-2.8) 11/30/21 12:58 Total Bilirubin 0.9 mg/dL (0.2-1.0) 11/30/21 12:58 AST 24 IU/L (10-42) 11/30/21 12:58 ALT 39 IU/L (10-60) 11/30/21 12:58 Alkaline Phosphatase 60 IU/L (42-121) 11/30/21 12:58 B-Natriuretic Peptide 45 pg/mL (5-100) 11/30/21 12:58 Total Protein 7.5 g/dL (6.7-8.2) 11/30/21 12:58 Albumin 3.8 g/dL (3.2-5.5) 11/30/21 12:58 Globulin 3.7 g/dL (2.1-4.2) 11/30/21 12:58 Albumin/Globulin Ratio 1.0 (1.0-2.2) 11/30/21 12:58 Procalcitonin 0.08 ng/mL (<0.5) 11/30/21 12:58 Nasal Adenovirus (PCR) NOT DETECTED 11/30/21 12:35 Nasal B. parapertussis DNA (PCR) NOT DETECTED 11/30/21 12:35 Nasal Coronavir 229E PCR NOT DETECTED 11/30/21 12:35 Nasal Coronavir HKU1 PCR NOT DETECTED 11/30/21 12:35 Nasal Coronavir NL63 PCR NOT DETECTED 11/30/21 12:35 Nasal Coronavir OC43 PCR NOT DETECTED 11/30/21 12:35 Nasal Enterovir/Rhinovir PCR NOT DETECTED 11/30/21 12:35 Nasal Influenza B PCR NOT DETECTED 11/30/21 12:35 Nasal Influenza A PCR NOT DETECTED 11/30/21 12:35 Nasal Parainfluen 1 PCR NOT DETECTED 11/30/21 12:35 Nasal Parainfluen 2 PCR NOT DETECTED 11/30/21 12:35 Nasal Parainfluen 3 PCR NOT DETECTED 11/30/21 12:35 Nasal Parainfluen 4 PCR NOT DETECTED 11/30/21 12:35 Nasal RSV (PCR) NOT DETECTED 11/30/21 12:35 Nasal B.pertussis DNA PCR NOT DETECTED 11/30/21 12:35 Nasal C.pneumoniae (PCR) NOT DETECTED 11/30/21 12:35 Braydon Human Metapneumo PCR NOT DETECTED 11/30/21 12:35 Nasal M.pneumoniae (PCR) NOT DETECTED 11/30/21 12:35 Nasal SARS-CoV-2 (PCR) NOT DETECTED 11/30/21 12:35 ABX Reporting Has patient been on IV antibiotics over the past 48 hours?: Yes
[2021-12-05] MEDS ORDERED: methylPREDNISolone 4 MG TABLET PO ONE (08:00)
[2021-12-05 08:07] LABS: BASOPHILS # (AUTO) 0.1 10^3/uL (0.0-0.1); BASOPHILS % (AUTO) 0.5 %; EOSINOPHILS # (AUTO) 0.1 10^3/uL (0.0-0.7); EOSINOPHILS % (AUTO) 1.1 %; HCT - HEMATOCRIT 41.3 % (42.0-52.0); HGB - HEMOGLOBIN 12.4 g/dL (14.0-18.0); LYMPHOCYTES # (AUTO) 1.5 10^3/uL (1.5-3.5); MEAN CORPUSCULAR HEMOGLOBIN 27.7 pg (27.0-31.0); MEAN CORPUSCULAR VOLUME 92.4 fL (80.0-94.0); MEAN PLATELET VOLUME 10.1 fL (7.4-11.4); MONOCYTES # (AUTO) 0.7 10^3/uL (0.0-1.0); MONOCYTES % (AUTO) 6.7 %; NEUTROPHILS # (AUTO) 8.1 10^3/uL (1.5-6.6); NEUTROPHILS % (AUTO) 75.9 %; PLT - PLATELET COUNT 217 10^3/uL (130-450); RED BLOOD COUNT 4.47 10^6/uL (4.70-6.10); RED CELL DISTRIBUTION WIDTH 15.9 % (12.0-15.0); WHITE BLOOD COUNT 10.7 x10^3/uL (4.8-10.8)
[2021-12-05 08:16] LABS: CALCIUM 8.9 mg/dL (8.5-10.3); CREATININE 0.6 mg/dL (0.6-1.2); POTASSIUM 4.2 mmol/L (3.5-5.0)
[2021-12-05] MEDS: ENOXAPARIN 40 MG/0.4 ML SYRINGE SUBQ SCH ×2 (09:05→20:29)
[2021-12-05] MEDS: cefTRIAXone 2 GM in SODIUM CHLORIDE 0.9% MINIBAG 100 ML IV SCH (09:06)
[2021-12-06 05:14] LABS: BASOPHILS # (AUTO) 0.1 10^3/uL (0.0-0.1); BASOPHILS % (AUTO) 0.7 %; EOSINOPHILS # (AUTO) 0.2 10^3/uL (0.0-0.7); EOSINOPHILS % (AUTO) 1.8 %; HCT - HEMATOCRIT 40.1 % (42.0-52.0); HGB - HEMOGLOBIN 12.1 g/dL (14.0-18.0); LYMPHOCYTES # (AUTO) 1.4 10^3/uL (1.5-3.5); LYMPHOCYTES % (AUTO) 13.2 %; MEAN CORPUSCULAR HGB CONC 30.2 g/dL (32.0-36.0); MEAN CORPUSCULAR VOLUME 92.8 fL (80.0-94.0); MEAN PLATELET VOLUME 9.8 fL (7.4-11.4); MONOCYTES # (AUTO) 0.7 10^3/uL (0.0-1.0); MONOCYTES % (AUTO) 6.8 %; NEUTROPHILS # (AUTO) 8.1 10^3/uL (1.5-6.6); NEUTROPHILS % (AUTO) 75.7 %; PLT - PLATELET COUNT 179 10^3/uL (130-450); RED BLOOD COUNT 4.32 10^6/uL (4.70-6.10); RED CELL DISTRIBUTION WIDTH 15.8 % (12.0-15.0); WHITE BLOOD COUNT 10.7 x10^3/uL (4.8-10.8)
[2021-12-06 05:23] LABS: CALCIUM 8.6 mg/dL (8.5-10.3); CREATININE 0.6 mg/dL (0.6-1.2)
[2021-12-06 07:25] VITALS: BP 134/83
[2021-12-06] MEDS ORDERED: methylPREDNISolone 4 MG TABLET PO ONE (08:00)
[2021-12-06] MEDS: ENOXAPARIN 40 MG/0.4 ML SYRINGE SUBQ SCH (08:44)
[2021-12-06] MEDS: SODIUM CHLORIDE FLUSH 0.9% 10 ML SYRINGE IVP SCH (08:44)
--- NOTE | 2021-12-06 10:15 | DISCHARGE SUMMARY ---
Discharge Summary Admit Date: 11/30/21 Discharge Date: 12/06/21 Discharging Provider: Louis Myrick Primary Care Provider: Rhonda Corbin Code Status: Attempt Resuscitation Condition at Discharge: Stable Discharge Disposition: 01 Home, Self Care - DIAGNOSES Admission Diagnoses: Acute respiratory failure with hypoxia Pneumonia Congestive heart failure Obstructive sleep apnea on CPAP Super obesity Discharge Diagnoses with Status of Each Condition: Acute respiratory failure with hypoxia: Likely secondary to pneumonia. Resolved Pneumonia: Acute. Resolved. Patient completed Rocephin and azithromycin IV. Congestive heart failure: On Lasix 20 mg p.o. daily at home. Obstructive sleep apnea on CPAP: Chronic patient will continue using his CPAP. Super obesity: Encouraged diet and exercise. - HPI History of Present Illness: 31-year-old male who has severe superobesity as well as severe obstructive sleep apnea hypopnea syndrome that presents as shortness of breath via EMS today. He has always had chronic leg edema. Has been present for years. Then he has had an increase in leg edema. He cannot put his finger on it. There is no change in diet, medication. He has not changed his work schedule. He was not ill. But the leg edema was so severe that he was unable to stand for minutes at a time. He went to the walk-in clinic on on November 24 with these complaints. At that time it was mainly the bilateral leg edema and bilateral leg pain. He was unable to stand for more than 10 minutes without a burning sensation. Over the course of 24 hours the leg edema has gotten so severe he could barely move. But on physical examination he was described as moving all extremities without pain or limitations. No swelling was noted at all. Skin was warm, dry, intact without any changes in color. He was started on Lasix. In spite of that, he continued to progress with a new cough over the last few days and then orange phlegm. He denied fever, chills, sore throat. No postnasal drip. No eustachian tube dysfunction. He works at [employer] and no one else is sick around him. Today his shortness of breath and cough became so severe that EMS was called. He was doing his weekly laundry. Usually he can walk from the car to the laundromat without stopping. Today he had to stop twice with 1 load of laundry to catch his breath. It got to the point that he could not breathe anymore.When EMS got there they found him to have a room air saturation of 80%. So he was placed on oxygen and given albuterol in route. He was with labored breathing. In the emergency room temperature was 36.9. Heart rate 102. Blood pressure 154/71. Respirations 24. 83% on room air. Weight is 301.639 kg. Chest x-ray shows a faint left infiltrate according to ER MD. Radiology reads it as congestive heart failure with bilateral congestion. His exam had him with labored breathing and barely speaking in full sentences, tachypnea. Diminished breath sounds at the bases with mild expiratory wheezing. Good air movement. 4+ pitting edema not worse than usual with chronic venous stasis changes. He was alert and oriented. He received Lasix once. And was given azithromycin and Rocephin. He is CMP is essentially normal. BNP is 45. White cell count is 12,000. Hemoglobin 12.9. Platelets 215. MCV is 91.1. He is requiring 4 L nasal cannula to maintain his O2 sats at 97. He still breathing at about 30. Emergency room provider has requested admission to our service for pneumonia and possible new CHF. - HOSPITAL COURSE Hospital Course: Patient is a 31-year-old morbidly obese male who was admitted on 11/30/2021 with shortness of breath. At the time of presentation his oxygen saturation was 80% on room air. Work-up included a chest x-ray which showed faint left infiltrates. It raise concern for heart failure with bilateral congestion as well as pneumonia. Patient was started on Rocephin and azithromycin. He completed 5 days of Rocephin IV and 3 days of azithromycin. He was given a dose of Lasix 40 mg IV x1 in the emergency room. He was placed on Solu-Medrol IV during his hospital stay. 2D echocardiogram done on 11/30/2021 showed ejection fraction 55 to 60%. Overall left ventricular systolic function appeared normal There was no evidence of aortic stenosis or aortic regurgitation. No evidence of mitral stenosis or mitral regurgitation. He initially required 4 L of oxygen via nasal cannula to maintain his oxygen saturation in the high 90s. Over the course of his 6-day hospital stay his respiratory status improved steadily. On the day of discharge an oxygen desaturation study was done. On room air at rest his oxygen saturation was 92%. On room air with exertion his oxygen saturation was 90%. He was deemed not to be in need of supplemental oxygen upon discharge. He was discharged in stable condition. - ALLERGIES Allergies/Adverse Reactions: Allergies Allergy/AdvReac Type Severity Reaction Status Date / Time No Known Drug Allergies Allergy Verified 11/30/21 12:28 - MEDICATIONS Home Medications: Ambulatory Orders Medication Instructions Recorded Confirmed Furosemide [Lasix] 20 mg PO DAILY 11/30/21 11/30/21 - PHYSICAL EXAM AT DISCHARGE General Appearance: positive: No acute distress, Alert, Other (Morbidly obese) Eyes Bilateral: positive: PERRL, EOMI ENT: positive: No signs of dehydration Neck: positive: No JVD, Trachea midline Respiratory: positive: Chest non-tender, No respiratory distress, Breath sounds nml. negative: Wheezes, Rales, Rhonchi Cardiovascular: positive: Regular rate & rhythm, No murmur Abdomen: positive: Non-tender, No organomegaly, Nml bowel sounds, Other (obese abdomen). negative: Guarding, Rebound Back: positive: Nml inspection Skin: positive: No rash, Warm, Dry Extremities: positive: Non-tender Neurologic/Psychiatric: positive: Oriented x3, Sensation nml - LABS Result Diagrams: 12/06/21 04:59 12/06/21 04:59 - TIME SPENT Time Spent in Discharge (Minutes): 15
[2021-12-07] MEDS ORDERED: methylPREDNISolone 4 MG TABLET PO ONE (08:00)
== END 2021-12-06 11:45 | disposition home or self-care (01) | DRG 189 ==
LOC: EDUNIT# → ED 12:17 → MS2 13:44
PROVIDERS: ADMIT Specialist; ATTEND Internal Medicine
DX: J96.01 Acute respiratory failure with hypoxia (principal); J18.9 Pneumonia, unspecified organism; Z68.45 Body mass index [BMI] 70 or greater, adult; I50.9 Heart failure, unspecified; G47.33 Obstructive sleep apnea (adult) (pediatric); E66.01 Morbid (severe) obesity due to excess calories; Z59.02 Unsheltered homelessness; R60.0 Localized edema; Z20.822 Contact with and (suspected) exposure to COVID-19
CPT/HCPCS: 36415; 36600; 71045; 80048; 80053; 82803; 83605; 83735; 83880; 84100; 84145; 85025; 85379; 87040; 87633; 93005; 93306; 93970; 94640; 94660; 94664; 94761; 96374; 96375; 99284; 99285; J1650; J7509

== ENCOUNTER 2022-01-03 10:59 | Inpatient (IN) | payer MEDICAID ==
[2022-01-03 11:46] LABS: BASOPHILS % (AUTO) 0.7 %; EOSINOPHILS % (AUTO) 1.6 %; HCT - HEMATOCRIT 38.7 % (42.0-52.0); HGB - HEMOGLOBIN 11.6 g/dL (14.0-18.0); MEAN CORPUSCULAR HEMOGLOBIN 27.1 pg (27.0-31.0); MEAN CORPUSCULAR VOLUME 90.4 fL (80.0-94.0); MEAN PLATELET VOLUME 9.7 fL (7.4-11.4); MONOCYTES % (AUTO) 7.5 %; NEUTROPHILS % (AUTO) 72.7 %; PLT - PLATELET COUNT 217 10^3/uL (130-450); RED BLOOD COUNT 4.28 10^6/uL (4.70-6.10); WHITE BLOOD COUNT 11.5 x10^3/uL (4.8-10.8)
[2022-01-03 11:48] LABS: SLIDE REVIEW? Indicated
[2022-01-03] MEDS ORDERED: IPRATROPIUM/ALBUTEROL 3 ML NEB INH STA (11:54)
[2022-01-03] MEDS ORDERED: DEXAMETHASONE 10 MG/ML VIAL IV STA (11:56)
[2022-01-03 12:01] LABS: ALBUMIN 3.5 g/dL (3.2-5.5); ALBUMIN/GLOBULIN RATIO 0.9 (1.0-2.2); BILIRUBIN,TOTAL 0.9 mg/dL (0.2-1.0); CALCIUM 8.9 mg/dL (8.5-10.3); CREATININE 0.7 mg/dL (0.6-1.2); POTASSIUM 4.3 mmol/L (3.5-5.0); TOTAL PROTEIN 7.4 g/dL (6.7-8.2)
[2022-01-03 12:10] LABS: ABNORMAL LYMPHS % (MANUAL) 0 %
[2022-01-03 12:11] LABS: BAND NEUTROPHILS % (MANUAL) 2 %; LYMPHOCYTES # (MANUAL) 1.3 10^3/uL (1.5-3.5); LYMPHOCYTES % (MANUAL) 11 %; MONOCYTES # (MANUAL) 0.8 10^3/uL (0.0-1.0); NEUTROPHILS # (MANUAL) 9.4 10^3/uL (1.5-6.6); NUCLEATED RBC (MANUAL) 2 %
[2022-01-03 12:12] LABS: DIFFERENTIAL COMMENT MANUAL DIFFERENTIAL; PLATELET ESTIMATE, MANUAL NORMAL (130-450,000) (NORMAL); PLATELET MORPHOLOGY NORMAL APPEARANCE (NORMAL); RBC MORPHOLOGY (MULTIPLE) NORMAL APPEARANCE (NORMAL)
[2022-01-03] MEDS ORDERED: ALBUTEROL NEB 2.5 MG/3 ML INH STA (12:28)
[2022-01-03] MEDS ORDERED: FUROSEMIDE 40 MG/4 ML VIAL IVP STA (12:29)
[2022-01-03 13:27] LABS: ABG HCO3 35.1 mmol/L (22.0-26.0); ABG OXYGEN SATURATION 98 % (94-98); ABG PO2 131 mmHg (80-100)
[2022-01-03 13:28] LABS: ALLEN TEST POSITIVE
[2022-01-03 13:33] LABS: ABG PCO2 72 mmHg (34-45)
[2022-01-03] MEDS ORDERED: AZITHROMYCIN INJ 500 MG in SODIUM CHLORIDE 0.9% 250 ML IV STA (14:45)
[2022-01-03] MEDS ORDERED: cefTRIAXone 2 GM in SODIUM CHLORIDE 0.9% MINIBAG 100 ML IV STA (14:45)
[2022-01-03] MEDS ORDERED: ONDANSETRON 4 MG/2 ML VIAL IVP PRN (15:01)
[2022-01-03] MEDS ORDERED: ACETAMINOPHEN 325 MG TABLET PO PRN (15:01)
[2022-01-03] MEDS ORDERED: SODIUM CHLORIDE FLUSH 0.9% 10 ML SYRINGE IVP PRN (15:01)
[2022-01-03] MEDS ORDERED: oxyCODONE 5 MG TABLET PO PRN (15:01)
--- NOTE | 2022-01-03 15:02 | ED Physician Documentation ---
PD HPI DYSPNEA - Stated complaint Stated Complaint: SOA - Chief complaint Chief Complaint: Resp - History obtained from History obtained from: Patient, EMS - Additional information Additional information: The patient comes to the emergency department via EMS from walk-in clinic with chief complaint of shortness of breath. The patient has been feeling increasingly short of breath over the last week. He states he has a history of asthma that was diagnosed as a teenager but that he has not been on medication for a long time. The patient is morbidly obese at almost 700 pounds and lives in his car. He is employed at [employer]. He ambulates with and without a walker, depending how far he has to go. However, he was not able to even ambulate at all this morning due to the Shortness of breath. The patient was seen in the walk-in clinic and was sent here when his room air oxygen saturation at rest was found to be in the upper 80s. His O2 sats with exertion were found to be in the 70s. The patient was placed on 6 L of oxygen per nasal cannula according to the medics and has been maintaining O2 sats in the mid 90s on that en-route. The patient denies fevers or chills. He has not had a cough. He does use CPAP, though this is difficult in the car. 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 The patient states that he feels as though he has gained some weight over the last couple of weeks. He was admitted to our hospital about 1 month ago for shortness of breath, hypoxia, possible pneumonia, and possible CHF. An echocardiogram at that time showed an EF of 60%. The patient upon discharge had resting room air sats of 92% and exertional O2 saturations of 90%. The patient states that he has tried to lose weight but has not been successful. He does not feel that he eats very much and does not know why he is so heavy. He states that he does not smoke tobacco and has a joint "a couple times a month". Review of Systems Ten Systems: 10 systems reviewed and negative Constitutional: reports: Reviewed and negative Eyes: reports: Reviewed and negative Ears: reports: Reviewed and negative Nose: reports: Reviewed and negative Throat: reports: Reviewed and negative Cardiac: reports: Reviewed and negative Respiratory: reports: Reviewed and negative GI: reports: Reviewed and negative : reports: Reviewed and negative Skin: reports: Reviewed and negative Musculoskeletal: reports: Reviewed and negative Neurologic: reports: Reviewed and negative Psychiatric: reports: Reviewed and negative Endocrine: reports: Reviewed and negative Immunocompromised: reports: Reviewed and negative PD PAST MEDICAL HISTORY - Past Medical History Past Medical History: Yes Cardiovascular: Hypertension Respiratory: Asthma, Sleep apnea, CPAP use Neuro: None Endocrine/Autoimmune: Other GI: Other : None Psych: Depression Musculoskeletal: Other - Present Medications Home Medications: Ambulatory Orders Medication Instructions Recorded Confirmed Furosemide [Lasix] 20 mg PO DAILY 11/30/21 01/04/22 - Allergies Allergies/Adverse Reactions: Allergies Allergy/AdvReac Type Severity Reaction Status Date / Time No Known Drug Allergies Allergy Verified 01/03/22 11:21 - Social History Does the pt smoke?: No Smoking Status: Never smoker - POLST Patient has POLST: No POLST Status: Full Code PD ED PE NORMAL - Vitals Vital signs reviewed: Yes - General General: Alert and oriented X 3, No acute distress, Other (Exceedingly obese pt who appears in mild respiratory distress.) - HEENT HEENT: Atraumatic, PERRL, EOMI, Moist mucous membranes - Neck Neck: Supple, no meningeal sign - Cardiac Cardiac: RRR, No murmur - Respiratory Respiratory: Other (mildly tight, with bilateral expiratory wheezes, mild respiratory distress.) - Abdomen Abdomen: Normal bowel sounds, Soft, Non tender, Non distended - Derm Derm: Normal color, Warm and dry - Extremities Extremities: No deformity, Other (Very obese legs. Presence of edema is difficult to discern.) - Neuro Neuro: Alert and oriented X 3, Other (Grossly intact.) - Psych Psych: Normal mood, Normal affect Results - Vitals Vitals: Oxygen O2 Source BIPAP Oxygen Flow Rate 6 - EKG (time done) 1121 Rate: Rate (enter#) (94) Rhythm: NSR [place]: Normal Intervals: Normal [place] QRS: Normal Ischemia: Normal ST segments Compare to prior EKG: Old EKG unavailable Computer interpretation: Agree with computer - Labs Labs: Laboratory Tests 01/03/22 01/03/22 01/03/22 11:43 11:43 11:43 WBC 11.5 H RBC 4.28 L Hgb 11.6 L Hct 38.7 L MCV 90.4 MCH 27.1 MCHC 30.0 L RDW 17.0 H Plt Count 217 MPV 9.7 Neut # (Auto) Not Reportable Lymph # (Auto) Not Reportable Early # (Auto) Not Reportable Eos # (Auto) Not Reportable Baso # (Auto) Not Reportable Absolute Nucleated RBC Not Reportable Total Counted 100 Band Neuts % (Manual) 2 Abnorm Lymph % (Manual) 0 Metamyelocytes % Nucleated RBC % Not Reportable Neutrophils # (Manual) 9.4 H Lymphocytes # (Manual) 1.3 L Monocytes # (Manual) 0.8 Eosinophils # (Manual) 0.0 Basophils # (Manual) 0.0 Nucleated RBCs 2 Differential Comment MANUAL DIFFERENTIAL Manual Slide Review Indicated WBC Morphology Platelet Estimate NORMAL (130-450,000) Platelet Morphology NORMAL APPEARANCE RBC Morph Micro Appear NORMAL APPEARANCE Bld Gas Analysis Time Sample Site ABG pH ABG pCO2 ABG pO2 ABG HCO3 ABG Total CO2 ABG O2 Saturation ABG Base Excess [place]by Test O2 Delivery Device O2 Liters/Min Sodium 139 Potassium 4.3 Chloride 98 L Carbon Dioxide 33 H Anion Gap 8.0 BUN 12 Creatinine 0.7 Estimated GFR (MDRD) 131 Glucose 86 Calcium 8.9 Total Bilirubin 0.9 AST 25 ALT 30 Alkaline Phosphatase 58 B-Natriuretic Peptide 63 Total Protein 7.4 Albumin 3.5 Globulin 3.9 Albumin/Globulin Ratio 0.9 L Lipase 22 Nasal Adenovirus (PCR) Nasal B. parapertussis DNA (PCR) Nasal Coronavir 229E PCR Nasal Coronavir HKU1 PCR Nasal Coronavir NL63 PCR Nasal Coronavir OC43 PCR Nasal Enterovir/Rhinovir PCR Nasal Influenza B PCR Nasal Influenza A PCR Nasal Parainfluen 1 PCR Nasal Parainfluen 2 PCR Nasal Parainfluen 3 PCR Nasal Parainfluen 4 PCR Nasal RSV (PCR) Nasal B.pertussis DNA PCR Nasal C.pneumoniae (PCR) Braydon Human Metapneumo PCR Nasal M.pneumoniae (PCR) Nasal SARS-CoV-2 (PCR) 01/03/22 01/03/22 01/04/22 13:10 15:38 07:35 WBC RBC Hgb Hct MCV MCH MCHC RDW Plt Count MPV Neut # (Auto) Lymph # (Auto) Early # (Auto) Eos # (Auto) Baso # (Auto) Absolute Nucleated RBC Total Counted Band Neuts % (Manual) Abnorm Lymph % (Manual) Metamyelocytes % Nucleated RBC % Neutrophils # (Manual) Lymphocytes # (Manual) Monocytes # (Manual) Eosinophils # (Manual) Basophils # (Manual) Nucleated RBCs Differential Comment Manual Slide Review WBC Morphology Platelet Estimate Platelet Morphology RBC Morph Micro Appear Bld Gas Analysis Time 1318 0744 Sample Site LEFT RADIAL LEFT RADIAL ABG pH 7.30 L 7.14 L* ABG pCO2 72 H* 108 H* ABG pO2 131 H 69 L ABG HCO3 35.1 H 35.8 H ABG Total CO2 37.0 H 39.1 H* ABG O2 Saturation 98 89 L ABG Base Excess 9.0 H 3.3 H [place]by Test POSITIVE POSITIVE O2 Delivery Device NASAL CANNULA NASAL CANNULA O2 Liters/Min 4.00 6.00 Sodium Potassium Chloride Carbon Dioxide Anion Gap BUN Creatinine Estimated GFR (MDRD) Glucose Calcium Total Bilirubin AST ALT Alkaline Phosphatase B-Natriuretic Peptide Total Protein Albumin Globulin Albumin/Globulin Ratio Lipase Nasal Adenovirus (PCR) NOT DETECTED Nasal B. parapertussis DNA (PCR) NOT DETECTED Nasal Coronavir 229E PCR NOT DETECTED Nasal Coronavir HKU1 PCR NOT DETECTED Nasal Coronavir NL63 PCR NOT DETECTED Nasal Coronavir OC43 PCR NOT DETECTED Nasal Enterovir/Rhinovir PCR NOT DETECTED Nasal Influenza B PCR NOT DETECTED Nasal Influenza A PCR NOT DETECTED Nasal Parainfluen 1 PCR NOT DETECTED Nasal Parainfluen 2 PCR NOT DETECTED Nasal Parainfluen 3 PCR NOT DETECTED Nasal Parainfluen 4 PCR NOT DETECTED Nasal RSV (PCR) NOT DETECTED Nasal B.pertussis DNA PCR NOT DETECTED Nasal C.pneumoniae (PCR) NOT DETECTED Braydon Human Metapneumo PCR NOT DETECTED Nasal M.pneumoniae (PCR) NOT DETECTED Nasal SARS-CoV-2 (PCR) NOT DETECTED 01/04/22 01/04/22 07:54 07:54 WBC 17.3 H RBC 4.42 L Hgb 12.0 L Hct 41.3 L MCV 93.4 MCH 27.1 MCHC 29.1 L RDW 17.2 H Plt Count 252 MPV 10.4 Neut # (Auto) Not Reportable Lymph # (Auto) Not Reportable Early # (Auto) Not Reportable Eos # (Auto) Not Reportable Baso # (Auto) Not Reportable Absolute Nucleated RBC Not Reportable Total Counted 100 Band Neuts % (Manual) 4 Abnorm Lymph % (Manual) 0 Metamyelocytes % 6 H Nucleated RBC % Not Reportable Neutrophils # (Manual) 14.2 H Lymphocytes # (Manual) 0.9 L Monocytes # (Manual) 1.2 H Eosinophils # (Manual) 0.0 Basophils # (Manual) 0.0 Nucleated RBCs 1 Differential Comment MANUAL DIFFERENTIAL Manual Slide Review Indicated WBC Morphology NORMAL APPEARANCE Platelet Estimate NORMAL (130-450,000) Platelet Morphology NORMAL APPEARANCE RBC Morph Micro Appear 1+ ANISOCYTOSIS Bld Gas Analysis Time Sample Site ABG pH ABG pCO2 ABG pO2 ABG HCO3 ABG Total CO2 ABG O2 Saturation ABG Base Excess [place] Test O2 Delivery Device O2 Liters/Min Sodium 137 Potassium 4.9 Chloride 95 L Carbon Dioxide 34 H Anion Gap 8.0 BUN 12 Creatinine 0.6 Estimated GFR (MDRD) 156 Glucose 115 H Calcium 8.7 Total Bilirubin AST ALT Alkaline Phosphatase B-Natriuretic Peptide Total Protein Albumin Globulin Albumin/Globulin Ratio Lipase Nasal Adenovirus (PCR) Nasal B. parapertussis DNA (PCR) Nasal Coronavir 229E PCR Nasal Coronavir HKU1 PCR Nasal Coronavir NL63 PCR Nasal Coronavir OC43 PCR Nasal Enterovir/Rhinovir PCR Nasal Influenza B PCR Nasal Influenza A PCR Nasal Parainfluen 1 PCR Nasal Parainfluen 2 PCR Nasal Parainfluen 3 PCR Nasal Parainfluen 4 PCR Nasal RSV (PCR) Nasal B.pertussis DNA PCR Nasal C.pneumoniae (PCR) Bray[place] Human Metapneumo PCR Nasal M.pneumoniae (PCR) Nasal SARS-CoV-2 (PCR) PD MEDICAL DECISION MAKING - ED course Complexity details: reviewed old records, reviewed results, re-evaluated patient, considered differential, d/w patient, d/w PMD ED course: The pt was evaluated upon arrival in the ED. He exhibited labored respirations, but as long as he was awake and at rest, his O2 sats were in the low to mid- 90's, even with 1 L O2. He was treated with nebulizers, Decadron, and Lasix. I reviewed his chest XR from clinic this morning, which showed borderline cardiomegaly and possible pneumonia, though the study was difficult. He was given antibiotics for this. His old records revealed that pt had an echo on his last admission that showed an EF of 55-60%. The pt had been discharged with recorded RA sats of 92 at rest and 90% after exertion. The pt on re-evaluation today reported feeling somewhat better, and was able to ambulate to the bathroom off oxygen. However, on arrival back to bed, his O2 sat was 70% and continued to drop in the immediate period following to 65%. The pt was placed back on oxygen and gradually improved over the course of several minutes. He was noted to be heavily breathing at this time. The pt's ABG showed a chronic elevation of pCO2 in the 70's. He did report that sometimes he wakes up very confused at night, and realizes he's pulled his CPAP off. The pt was noted in the ED to fall asleep in bed, with subsequent desaturation into the 60's again. Given all of the above, as well as the fact that the pt lives in his car, I felt he should be admitted for his hypoxia. I spoke with Dr. Myrick, who agreed to admit the pt to his service. Departure - Departure Disposition: 66 [facility] DC/[facility] Clinical Impression: Hypoxemia, Obesity hypoventilation syndrome Asthma exacerbation Qualifiers: Asthma severity: mild Asthma persistence: intermittent Qualified Code(s): J45.21 - Mild intermittent asthma with (acute) exacerbation Condition: Serious Discharge Date/Time: 01/03/22 16:27
--- NOTE | 2022-01-03 15:05 | HISTORY & PHYSICAL EXAMINATION ---
Chief Complaint - Chief Complaint Chief Complaint: dyspnea History of Present Illness - Admitted From Admitted From:: [facility] - History Obtained From Records Reviewed: yes History obtained from: patient - History of Present Illness HPI Comment/Other: Patient is a 31-year-old morbidly obese male who weighs almost 700lbs, has a history of asthma, and lives in his car who presented to the ED with dyspnea. Symptoms have been going on for about 4 days. Started after he had gone to show out of town. To get to the venue he had to walk about 2 miles. After the exertion of that day he became dyspneic. This has progressed over the ensuing days. He went to the walk-in clinic at [facility] where his oxygen saturation at rest on room air was noted to be in the 80s. His oxygen saturation with exertion was found to be in the 70s. He was placed on 6 L of oxygen per nasal cannula which helped maintain his oxygen saturation in the mid 90s while he was transported from the clinic to the emergency department. In the ED he was noted to have an oxygen saturation of 89% on room air. He was mildly wheezing and had productive cough. He denied chest pain, abdominal pain, nausea, vomiting, fever or chills. Work-up in the ED included an ABG which showed a pH of 7.30 and PCO2 of 72. His PO2 at the time was 131 with HCO3 of 35.1. He had a white blood cell count of 11.5. Chest x-ray showed mildly prominent interstitium which could represent edema or atypical infection. Mild cardiomegaly was noted as before. He was presented for admission for continued management. History - Past Medical History Cardiovascular: reports: Hypertension Respiratory: reports: Asthma, Sleep apnea, CPAP use Neuro: reports: None Endocrine/Autoimmune: reports: Other GI: reports: Other : reports: None Psych: reports: Depression Musculoskeletal: reports: Other MRSA Hx?: No - Family & Social History Family History Comment/Other: Mom is alive. Has diabetes. Dad is alive and also has diabetes and HTN. 4 brothers and 2 sisters. No medical issues but he does feel mental illness is present in them. No children. There are no cancers, thyroid, bleeding disorders in the family Living Situation: Alone Social History Notes: Never smoked. No history of alcohol abuse or recreational substance abuse. He is employed at [employer] 20 hours a week. Not . Has no children. From [place]. Came to live on [facility] in 2014. He is only able to work 20 hours a week because of the pain in his feet and legs. The information support project manager at [employer] was trying to work with him so that he can do 4 hours of work, rest 4 hours, and then do another 4 hours of work so he can get 8 hours a day. He lives out of his car. During the day he goes to [employer] when not at his not work. He showers 3 days a week with the relationship to [employer] has with a gym. He also does laundry 1 day a week on . - Substance History Use: Uses substance without health or social issues: Alcohol (Is 2 beers about once a month), Cannabis (1 cigarette once a month) - POLST Patient has POLST: No POLST Status: Full Code Meds/Allgy - Home Medications Home Medications: Ambulatory Orders Medication Instructions Recorded Confirmed Furosemide [Lasix] 20 mg PO DAILY 11/30/21 11/30/21 - Allergies Allergies/Adverse Reactions: Allergies Allergy/AdvReac Type Severity Reaction Status Date / Time No Known Drug Allergies Allergy Verified 01/03/22 11:21 Review of Systems - Constitutional Constitutional: denies: Fatigue, Fever, Chills, Weakness - Eyes Eyes: denies: Pain, Vision loss - Ears, Nose & Throat Ears, Nose & Throat: denies: Vertigo, Sore throat - Cardiovascular Cariovascular: reports: Edema, Exertional dyspnea, Decr. exercise tolerance. denies: Irregular heart rate, Palpitations, Chest pain, Lightheadedness, Syncope - Respiratory Respiratory: reports: Cough, Sputum production, Wheezing, SOB at rest, SOB with exertion - Gastrointestinal Gastrointestinal: denies: Abdominal pain, Abdominal distention, Constipation, Diarrhea, Nausea, Vomiting - Genitourinary Genitourinary: denies: Dysuria, Frequency, Urgency, Hematuria - Musculoskeletal Musculoskeletal: denies: Muscle pain, Back pain, Muscle aches, Stiffness - Integumentary Integumentary: denies: Rash, Pruritis, Lesions, Dryness - Neurological Neurological: denies: General weakness, Focal weakness, Headache, Dizziness - Psychiatric Psychiatric: reports: Depression. denies: Anxiety - Endocrine Endocrine: denies: Polyuria, Polydypsia - Hematologic/Lymphatic Hematologic/Lymphatic: denies: Anemia, Bruising, Petechiae Prior Level of Functionality: He is independent of activities of daily living. He gets around without any walking aid. However he can only stand on his feet for about 4 hours before requiring break. This limits his working days to 4 hours a day only. He is homeless and lives in his car. Exam - Vital Signs Vital Signs: Vital Signs x48h Temp Pulse Resp BP Pulse Ox 01/03/22 14:46 87 20 94 01/03/22 13:13 92 12 133/78 H 100 01/03/22 13:06 85 25 H 01/03/22 12:59 88 12 152/65 H 92 01/03/22 12:29 95 16 169/66 H 94 01/03/22 12:06 81 19 01/03/22 11:55 89 20 145/66 H 94 01/03/22 11:39 96 01/03/22 11:34 89 L 01/03/22 11:16 36.8 C 95 28 H 153/72 H 94 - Physical Exam General Appearance: positive: Alert, Mild distress (respiratory), Other (Morbidly obese) Eyes Bilateral: positive: PERRL, EOMI ENT: positive: No signs of dehydration Neck: positive: No JVD, Trachea midline Respiratory: positive: Chest non-tender, Other (Coarse breath sounds. No overt wheezing or rhonchi noted. Mild to moderate respiratory distress.) Cardiovascular: positive: Regular rate & rhythm, No murmur Abdomen: positive: Non-tender, No organomegaly, Nml bowel sounds, No distention. negative: Guarding, Rebound Back: positive: Nml inspection Skin: positive: Color nml, No rash, Warm, Dry Extremities: positive: Non-tender, Full ROM, Nml appearance, Pedal edema (chronic lymphedema) Neurologic/Psychiatric: positive: Oriented x3, Mood/affect nml Conclusion/Plan - Problem List (1) Acute respiratory failure with hypoxia Conclusion/Plan: This is likely multifactorial. Secondary to mild asthma exacerbation, Cannot rule out atypical infection and edema. Chronically due to obesity hypoventilation syndrome and obstructive sleep apnea. Patient given Decadron 20 mg IV x1 in the ED. Will continue Decadron 10 mg IV daily. Rocephin 1 g IV daily. Azithromycin 500 mg IV daily x3 doses total. Continue supplemental oxygen to maintain oxygen saturation greater than 92%. Resume patient's home CPAP at home settings. Lasix 40 mg IV daily. (2) Obesity hypoventilation syndrome Conclusion/Plan: Patient will continue using CPAP at home settings. (3) ALONDRA on CPAP Conclusion/Plan: Continue home CPAP. (4) Super obesity Conclusion/Plan: Continue to strongly advise weight loss. - Lab Results Fish Bones: 01/03/22 11:43 01/03/22 11:43 Core Measures - Anticipated LOS I expect patient to be DC'd or transferred within 96 hours.: Yes - DVT/VTE - Prophylaxis VTE/DVT Device ordered at admit?: Yes VTE/DVT Prophylaxis med ordered at admit?: Yes
[2022-01-03 16:41] LABS: CORONAVIRUS 229E-RESP PCR NOT DETECTED; CORONAVIRUS HKU1-RESP PCR NOT DETECTED; CORONAVIRUS NL63-RESP PCR NOT DETECTED; CORONAVIRUS OC43-RESP PCR NOT DETECTED; HUMAN METAPNEUMOVIRUS NOT DETECTED; RHINOVIRUS/ENTEROVIRUS NOT DETECTED; SARS-CoV-2 -RESP PCR PANEL NOT DETECTED
[2022-01-03 16:42] LABS: B. PARAPERTUSSIS- RESP PCR PAN NOT DETECTED; B. PERTUSSIS- RESP PCR PANEL NOT DETECTED; C. PNEUMONIAE- RESP PCR PANEL NOT DETECTED; INFLUENZA A- RESP PCR PANEL NOT DETECTED; INFLUENZA B - RESP PCR PANEL NOT DETECTED; M. PNEUMONIAE- RESP PCR PANEL NOT DETECTED; PARAINFLUENZA VIRUS 1 NOT DETECTED; PARAINFLUENZA VIRUS 2 NOT DETECTED; PARAINFLUENZA VIRUS 3 NOT DETECTED; PARAINFLUENZA VIRUS 4 NOT DETECTED; RSV- RESP PCR PANEL NOT DETECTED
[2022-01-03] MEDS: SODIUM CHLORIDE FLUSH 0.9% 10 ML SYRINGE IVP SCH ×2 (18:06→23:17)
[2022-01-03] MEDS ORDERED: LEVALBUTEROL 1.25 MG/3 ML NEB INH PRN (19:40)
[2022-01-03] MEDS: BUDESONIDE 0.5 MG/2 ML NEB INH SCH (21:55)
[2022-01-03] MEDS: LEVALBUTEROL 1.25 MG/3 ML NEB INH SCH (21:55)
[2022-01-03] MEDS: ENOXAPARIN 40 MG/0.4 ML SYRINGE SUBQ SCH (21:55)
--- NOTE | 2022-01-04 07:36 | PROVIDER PROGRESS NOTE ---
Assessment/Plan - Problem List (1) Acute respiratory failure with hypoxia and hypercapnia Assessment/Plan: Patient was very difficult to arouse this morning. ABG done showed pH of 7.137 and PCO2 of 108.2. PO2 68.7. Patient was started on the BiPAP. About 2 hours later he was alert oriented x3. We will continue CPAP nightly. Supplemental oxygen during the day as needed. Acute hypoxic episode was triggered by asthma exacerbation. Could not rule out atypical infection and edema. Chronically patient has obesity hypoventilation syndrome and obstructive sleep apnea. Continue Decadron 10 mg IV daily. Rocephin 1 g IV daily. Azithromycin 500 mg IV daily 2/3 doses Lasix 40 mg IV daily. Lev albuterol every 4 hours. Budesonide twice daily. (2) Obesity hypoventilation syndrome Assessment/Plan: Continue CPAP nightly (3) ALONDRA on CPAP Assessment/Plan: Continue CPAP nightly (4) Super obesity Assessment/Plan: Continue to advise weight loss. - Current Meds Current Meds: Current Medications Generic Name Dose Route Start Last Admin Trade Name Freq PRN Reason Stop Dose Admin Budesonide 0.5 mg 01/03/22 21:00 01/03/22 21:55 Budesonide 0.5 Mg/2 Ml Neb INH Not Given RTBID MARINO Enoxaparin Sodium 40 mg 01/03/22 21:00 01/03/22 21:55 Enoxaparin 40 Mg/0.4 Ml Syringe SUBQ Not Given BID MARINO Levalbuterol HCl 1.25 mg 01/03/22 21:00 01/03/22 21:55 Levalbuterol 1.25 Mg/3 Ml Neb INH Not Given RTQID MARINO Sodium Chloride 10 ml 01/03/22 17:00 01/03/22 23:17 Sodium Chloride Flush 0.9% 10 Ml Syringe IVP 10 ml 0100,0900,1700 [facility] Administration - Lab Result Fish Bone Diagrams: 01/04/22 07:54 01/04/22 07:54 - Additional Planning My Orders: My Active Orders 01/03/22 15:01 Activity Orders [RC] Q2HR Home CPAP/BiPAP/NPPV [RC] .ONCE IO [RC] IOSHIFT Incentive Spirometry - RT [RC] TID Initiate Bowel Care Protocol [RC] .protocol Initiate Line Care Protocol [RC] QSHIFT Initiate Personal Care Protoco [RC] .protocol Oxygen Therapy [RC] .PRN Telemetry- [RC] Q4HR Vital Signs [RC] Q4HR Acetaminophen [Tylenol] 650 mg PO Q4HR PRN Ondansetron Inj [Zofran Inj] 4 mg IVP Q6HR PRN Sodium Chloride Flush 0.9% [Normal Saline Flush 0.9%] 10 ml IVP PRN PRN oxyCODONE [Roxicodone] 5 mg PO Q4HR PRN Code Status [OTHERS] Routine Condition of Patient [OTHERS] Routine DVT Prophylaxis [OTHERS] Routine 01/03/22 Dinner Cardiac Diet [DIET] 01/03/22 17:00 Sodium Chloride Flush 0.9% [Normal Saline Flush 0.9%] 10 ml IVP 0100,0900,1700 01/03/22 21:00 Enoxaparin [Lovenox] 40 mg SUBQ BID 01/04/22 05:00 BMP - BASIC METABOLIC PANEL [CHEM] DAILYLAB CBC - COMP BLD CT W/AUTO DIFF [HEME] DAILYLAB 01/04/22 07:29 RT - Obtain Arterial Specimen [RC] .ONCE ABG - ARTERIAL BLOOD GAS [BG] Stat 01/04/22 09:00 Azithromycin Inj [Zithromax Inj] 500 mg Sodium Chloride 0.9% [Normal Saline 0.9%] 250 ml IV DAILY FUROSEMIDE INJ 40mg VIAL [LASIX INJ 40 mg VIAL] 40 mg IVP DAILY cefTRIAXone [Rocephin] 1 gm Sodium Chloride 0.9% Minibag [Normal Saline 0.9% Minibag] 100 ml IV DAILY dexAMETHasone [Decadron] 10 mg IVP DAILY 01/05/22 05:00 BMP - BASIC METABOLIC PANEL [CHEM] DAILYLAB CBC - COMP BLD CT W/AUTO DIFF [HEME] DAILYLAB 01/06/22 05:00 BMP - BASIC METABOLIC PANEL [CHEM] DAILYLAB CBC - COMP BLD CT W/AUTO DIFF [HEME] DAILYLAB 01/07/22 05:00 BMP - BASIC METABOLIC PANEL [CHEM] DAILYLAB CBC - COMP BLD CT W/AUTO DIFF [HEME] DAILYLAB 01/08/22 05:00 BMP - BASIC METABOLIC PANEL [CHEM] DAILYLAB CBC - COMP BLD CT W/AUTO DIFF [HEME] DAILYLAB Subjective - Subjective Patient Reports: Other (Patient was very somnolent and difficult to arouse this morning. ABG showed a pH of 7.137 and PCO2 of 108.2. BiPAP was initiated with positive response about 2 hours later. He was more awake and alert.) Objective Vital Signs: Vital Signs - 24 hr 01/03/22 01/03/22 01/03/22 11:16 11:34 11:39 Temperature 36.8 C Heart Rate 95 Heart Rate [ Brachial] Respiratory 28 H Rate Blood Pressure 153/72 H Blood Pressure [Left Radial artery] Blood Pressure [Right Brachial artery] Blood Pressure [Right Radial artery] O2 Saturation 94 89 L 96 01/03/22 01/03/22 01/03/22 11:55 12:06 12:29 Temperature Heart Rate 89 81 95 Heart Rate [ Brachial] Respiratory 20 19 16 Rate Blood Pressure 145/66 H 169/66 H Blood Pressure [Left Radial artery] Blood Pressure [Right Brachial artery] Blood Pressure [Right Radial artery] O2 Saturation 94 94 01/03/22 01/03/22 01/03/22 12:59 13:06 13:13 Temperature Heart Rate 88 85 92 Heart Rate [ Brachial] Respiratory 12 25 H 12 Rate Blood Pressure 152/65 H 133/78 H Blood Pressure [Left Radial artery] Blood Pressure [Right Brachial artery] Blood Pressure [Right Radial artery] O2 Saturation 92 100 01/03/22 01/03/22 01/03/22 14:46 15:00 16:57 Temperature 36.6 C Heart Rate 87 94 Heart Rate [ 99 Brachial] Respiratory 20 24 Rate Blood Pressure Blood Pressure [Left Radial artery] Blood Pressure 133/50 H [Right Brachial artery] Blood Pressure [Right Radial artery] O2 Saturation 94 91 L 93 01/03/22 01/03/22 01/03/22 20:21 21:53 23:17 Temperature 36.7 C 36.8 C Heart Rate 93 Heart Rate [ 98 99 Brachial] Respiratory 24 24 24 Rate Blood Pressure Blood Pressure [Left Radial artery] Blood Pressure 140/70 H [Right Brachial artery] Blood Pressure 137/80 H [Right Radial artery] O2 Saturation 93 92 01/04/22 03:39 Temperature 36.3 C L Heart Rate Heart Rate [ 98 Brachial] Respiratory 24 Rate Blood Pressure Blood Pressure 138/71 H [Left Radial artery] Blood Pressure [Right Brachial artery] Blood Pressure [Right Radial artery] O2 Saturation 94 Oxygen O2 Source Nasal cannula Oxygen Flow Rate 6 I&O (Last 24 Hrs): Intake and Output Totals x24h 01/02/22 01/03/22 01/04/22 23:59 23:59 23:59 Intake Total 850 Balance 850 General: Alert, Oriented x3, No acute distress HEENT: PERRLA, EOMI Neck: Supple, No JVD Neuro: Alert, Oriented Times 3 Cardiovascular: Regular rate, Normal S1, Normal S2 Respiratory: Chest non-tender, No respiratory distress, Breath sounds nml Abdomen: Normal bowel sounds, Soft, No tenderness, Other (obese abdomen) Extremities: No cyanosis, Other (chronic lymphedema changes) - Results Results: Laboratory Results WBC 11.5 x10^3/uL (4.8-10.8) H 01/03/22 11:43 RBC 4.28 10^6/uL (4.70-6.10) L 01/03/22 11:43 Hgb 11.6 g/dL (14.0-18.0) L 01/03/22 11:43 Hct 38.7 % (42.0-52.0) L 01/03/22 11:43 MCV 90.4 fL (80.0-94.0) 01/03/22 11:43 MCH 27.1 pg (27.0-31.0) 01/03/22 11:43 MCHC 30.0 g/dL (32.0-36.0) L 01/03/22 11:43 RDW 17.0 % (12.0-15.0) H 01/03/22 11:43 Plt Count 217 10^3/uL (130-450) 01/03/22 11:43 MPV 9.7 fL (7.4-11.4) 01/03/22 11:43 Neut # (Auto) Not Reportable 01/03/22 11:43 Lymph # (Auto) Not Reportable 01/03/22 11:43 [place] # (Auto) Not Reportable 01/03/22 11:43 Eos # (Auto) Not Reportable 01/03/22 11:43 Baso # (Auto) Not Reportable 01/03/22 11:43 Absolute Nucleated RBC Not Reportable 01/03/22 11:43 Total Counted 100 01/03/22 11:43 Band Neuts % (Manual) 2 % (0-10) 01/03/22 11:43 Abnorm Lymph % (Manual) 0 % 01/03/22 11:43 Nucleated RBC % Not Reportable 01/03/22 11:43 Neutrophils # (Manual) 9.4 10^3/uL (1.5-6.6) H 01/03/22 11:43 Lymphocytes # (Manual) 1.3 10^3/uL (1.5-3.5) L 01/03/22 11:43 Monocytes # (Manual) 0.8 10^3/uL (0.0-1.0) 01/03/22 11:43 Eosinophils # (Manual) 0.0 10^3/uL (0-0.7) 01/03/22 11:43 Basophils # (Manual) 0.0 10^3/uL (0-0.1) 01/03/22 11:43 Nucleated RBCs 2 % 01/03/22 11:43 Differential Comment MANUAL DIFFERENTIAL 01/03/22 11:43 Manual Slide Review Indicated 01/03/22 11:43 Platelet Estimate NORMAL (130-450,000) (NORMAL) 01/03/22 11:43 Platelet Morphology NORMAL APPEARANCE (NORMAL) 01/03/22 11:43 RBC Morph Micro Appear NORMAL APPEARANCE (NORMAL) 01/03/22 11:43 Bld Gas Analysis Time 1318 01/03/22 13:10 Sample Site LEFT RADIAL 01/03/22 13:10 ABG pH 7.30 (7.35-7.45) L 01/03/22 13:10 ABG pCO2 72 mmHg (34-45) H* 01/03/22 13:10 ABG pO2 131 mmHg (80-100) H 01/03/22 13:10 ABG HCO3 35.1 mmol/L (22.0-26.0) H 01/03/22 13:10 ABG Total CO2 37.0 MMOL/L (21.0-29.0) H 01/03/22 13:10 ABG O2 Saturation 98 % (94-98) 01/03/22 13:10 ABG Base Excess 9.0 mmol/L (-2.0-3.0) H 01/03/22 13:10 [place] Test POSITIVE 01/03/22 13:10 O2 Delivery Device NASAL CANNULA 01/03/22 13:10 O2 Liters/Min 4.00 LPM 01/03/22 13:10 Sodium 139 mmol/L (135-145) 01/03/22 11:43 Potassium 4.3 mmol/L (3.5-5.0) 01/03/22 11:43 Chloride 98 mmol/L (101-111) L 01/03/22 11:43 Carbon Dioxide 33 mmol/L (21-32) H 01/03/22 11:43 Anion Gap 8.0 (6-13) 01/03/22 11:43 BUN 12 mg/dL (6-20) 01/03/22 11:43 Creatinine 0.7 mg/dL (0.6-1.2) 01/03/22 11:43 Estimated GFR (MDRD) 131 (>89) 01/03/22 11:43 Glucose 86 mg/dL (70-100) 01/03/22 11:43 Calcium 8.9 mg/dL (8.5-10.3) 01/03/22 11:43 Total Bilirubin 0.9 mg/dL (0.2-1.0) 01/03/22 11:43 AST 25 IU/L (10-42) 01/03/22 11:43 ALT 30 IU/L (10-60) 01/03/22 11:43 Alkaline Phosphatase 58 IU/L (42-121) 01/03/22 11:43 B-Natriuretic Peptide 63 pg/mL (5-100) 01/03/22 11:43 Total Protein 7.4 g/dL (6.7-8.2) 01/03/22 11:43 Albumin 3.5 g/dL (3.2-5.5) 01/03/22 11:43 Globulin 3.9 g/dL (2.1-4.2) 01/03/22 11:43 Albumin/Globulin Ratio 0.9 (1.0-2.2) L 01/03/22 11:43 Lipase 22 U/L (22-51) 01/03/22 11:43 Nasal Adenovirus (PCR) NOT DETECTED 01/03/22 15:38 Nasal B. parapertussis DNA (PCR) NOT DETECTED 01/03/22 15:38 Nasal Coronavir 229E PCR NOT DETECTED 01/03/22 15:38 Nasal Coronavir HKU1 PCR NOT DETECTED 01/03/22 15:38 Nasal Coronavir NL63 PCR NOT DETECTED 01/03/22 15:38 Nasal Coronavir OC43 PCR NOT DETECTED 01/03/22 15:38 Nasal Enterovir/Rhinovir PCR NOT DETECTED 01/03/22 15:38 Nasal Influenza B PCR NOT DETECTED 01/03/22 15:38 Nasal Influenza A PCR NOT DETECTED 01/03/22 15:38 Nasal Parainfluen 1 PCR NOT DETECTED 01/03/22 15:38 Nasal Parainfluen 2 PCR NOT DETECTED 01/03/22 15:38 Nasal Parainfluen 3 PCR NOT DETECTED 01/03/22 15:38 Nasal Parainfluen 4 PCR NOT DETECTED 01/03/22 15:38 Nasal RSV (PCR) NOT DETECTED 01/03/22 15:38 Nasal B.pertussis DNA PCR NOT DETECTED 01/03/22 15:38 Nasal C.pneumoniae (PCR) NOT DETECTED 01/03/22 15:38 [place] Human Metapneumo PCR NOT DETECTED 01/03/22 15:38 Nasal M.pneumoniae (PCR) NOT DETECTED 01/03/22 15:38 Nasal SARS-CoV-2 (PCR) NOT DETECTED 01/03/22 15:38 ABX Reporting Has patient been on IV antibiotics over the past 48 hours?: Yes
[2022-01-04 07:46] LABS: ABG BASE EXCESS 3.3 mmol/L (-2.0-3.0); ABG HCO3 35.8 mmol/L (22.0-26.0); ABG OXYGEN SATURATION 89 % (94-98); ABG PO2 69 mmHg (80-100); ALLEN TEST POSITIVE
[2022-01-04 07:50] LABS: ABG PCO2 108 mmHg (34-45); ABG PH 7.14 (7.35-7.45); ABG TCO2 39.1 MMOL/L (21.0-29.0)
[2022-01-04] MEDS: BUDESONIDE 0.5 MG/2 ML NEB INH SCH ×2 (08:16→20:28)
[2022-01-04] MEDS: LEVALBUTEROL 1.25 MG/3 ML NEB INH SCH ×4 (08:16→20:28)
[2022-01-04 08:20] LABS: BASOPHILS % (AUTO) 0.6 %; EOSINOPHILS % (AUTO) 0.1 %; HCT - HEMATOCRIT 41.3 % (42.0-52.0); LYMPHOCYTES % (AUTO) 7.3 %; MEAN CORPUSCULAR HEMOGLOBIN 27.1 pg (27.0-31.0); MEAN CORPUSCULAR HGB CONC 29.1 g/dL (32.0-36.0); MEAN CORPUSCULAR VOLUME 93.4 fL (80.0-94.0); MEAN PLATELET VOLUME 10.4 fL (7.4-11.4); NEUTROPHILS % (AUTO) 77.8 %; PLT - PLATELET COUNT 252 10^3/uL (130-450); RED BLOOD COUNT 4.42 10^6/uL (4.70-6.10); RED CELL DISTRIBUTION WIDTH 17.2 % (12.0-15.0); WHITE BLOOD COUNT 17.3 x10^3/uL (4.8-10.8)
[2022-01-04 08:42] LABS: SLIDE REVIEW? Indicated
[2022-01-04] MEDS: DEXAMETHASONE 10 MG/ML VIAL IVP SCH (08:42)
[2022-01-04] MEDS: FUROSEMIDE 40 MG/4 ML VIAL IVP SCH (08:42)
[2022-01-04] MEDS: cefTRIAXone 1 GM in SODIUM CHLORIDE 0.9% MINIBAG 100 ML IV SCH (08:42)
[2022-01-04] MEDS: ENOXAPARIN 40 MG/0.4 ML SYRINGE SUBQ SCH ×2 (08:42→20:16)
[2022-01-04 08:43] LABS: ABNORMAL LYMPHS % (MANUAL) 0 %
[2022-01-04 08:45] LABS: CALCIUM 8.7 mg/dL (8.5-10.3); CREATININE 0.6 mg/dL (0.6-1.2); POTASSIUM 4.9 mmol/L (3.5-5.0)
[2022-01-04 08:46] LABS: BAND NEUTROPHILS % (MANUAL) 4 %; LYMPHOCYTES # (MANUAL) 0.9 10^3/uL (1.5-3.5); LYMPHOCYTES % (MANUAL) 5 %; METAMYELOCYTES % (MANUAL) 6 %; MONOCYTES # (MANUAL) 1.2 10^3/uL (0.0-1.0); NEUTROPHILS # (MANUAL) 14.2 10^3/uL (1.5-6.6); NUCLEATED RBC (MANUAL) 1 %
[2022-01-04] MEDS: SODIUM CHLORIDE FLUSH 0.9% 10 ML SYRINGE IVP SCH ×3 (08:47→23:18)
[2022-01-04 08:48] LABS: PLATELET ESTIMATE, MANUAL NORMAL (130-450,000) (NORMAL); PLATELET MORPHOLOGY NORMAL APPEARANCE (NORMAL); RBC MORPHOLOGY (MULTIPLE) 1+ ANISOCYTOSIS (NORMAL)
[2022-01-04 08:49] LABS: DIFFERENTIAL COMMENT MANUAL DIFFERENTIAL; WBC MORPHOLOGY (MULTIPLE) NORMAL APPEARANCE (NORMAL)
[2022-01-04] MEDS: AZITHROMYCIN INJ 500 MG in SODIUM CHLORIDE 0.9% 250 ML IV SCH (09:44)
[2022-01-04 11:27] LABS: ABG HCO3 34.1 mmol/L (22.0-26.0); ABG PH 7.23 (7.35-7.45); ABG PO2 82 mmHg (80-100)
[2022-01-04 11:28] LABS: ABG OXYGEN SATURATION 95 % (94-98); ABG TCO2 36.7 MMOL/L (21.0-29.0); ALLEN TEST POSITIVE
[2022-01-04 11:32] LABS: ABG PCO2 84 mmHg (34-45)
[2022-01-05] MEDS: LEVALBUTEROL 1.25 MG/3 ML NEB INH SCH ×4 (07:04→19:28)
[2022-01-05] MEDS: BUDESONIDE 0.5 MG/2 ML NEB INH SCH ×2 (07:04→19:28)
[2022-01-05 07:41] LABS: BASOPHILS % (AUTO) 0.4 %; EOSINOPHILS % (AUTO) 0.5 %; HCT - HEMATOCRIT 37.6 % (42.0-52.0); HGB - HEMOGLOBIN 10.8 g/dL (14.0-18.0); LYMPHOCYTES % (AUTO) 12.7 %; MEAN CORPUSCULAR HEMOGLOBIN 26.8 pg (27.0-31.0); MEAN CORPUSCULAR HGB CONC 28.7 g/dL (32.0-36.0); MEAN CORPUSCULAR VOLUME 93.3 fL (80.0-94.0); MONOCYTES % (AUTO) 8.7 %; NEUTROPHILS % (AUTO) 73.7 %; PLT - PLATELET COUNT 214 10^3/uL (130-450); RED BLOOD COUNT 4.03 10^6/uL (4.70-6.10); RED CELL DISTRIBUTION WIDTH 17.3 % (12.0-15.0); WHITE BLOOD COUNT 13.1 x10^3/uL (4.8-10.8)
[2022-01-05 07:44] LABS: SLIDE REVIEW? Indicated
[2022-01-05 08:29] LABS: ABNORMAL LYMPHS % (MANUAL) 0 %
[2022-01-05] MEDS: ENOXAPARIN 40 MG/0.4 ML SYRINGE SUBQ SCH (09:00)
[2022-01-05] MEDS: DEXAMETHASONE 10 MG/ML VIAL IVP SCH (09:00)
[2022-01-05] MEDS: SODIUM CHLORIDE FLUSH 0.9% 10 ML SYRINGE IVP SCH ×3 (09:00→23:48)
[2022-01-05] MEDS: FUROSEMIDE 40 MG/4 ML VIAL IVP SCH (09:00)
[2022-01-05 09:03] LABS: CALCIUM 8.6 mg/dL (8.5-10.3); CREATININE 0.6 mg/dL (0.6-1.2); POTASSIUM 4.4 mmol/L (3.5-5.0)
[2022-01-05] MEDS: cefTRIAXone 1 GM in SODIUM CHLORIDE 0.9% MINIBAG 100 ML IV SCH (09:10)
[2022-01-05 09:11] LABS: BAND NEUTROPHILS % (MANUAL) 6 %; EOSINOPHILS # (MANUAL) 0.3 10^3/uL (0-0.7); LYMPHOCYTES # (MANUAL) 1.6 10^3/uL (1.5-3.5); LYMPHOCYTES % (MANUAL) 12 %; METAMYELOCYTES % (MANUAL) 4 %; MONOCYTES # (MANUAL) 0.7 10^3/uL (0.0-1.0); NEUTROPHILS # (MANUAL) 10.1 10^3/uL (1.5-6.6)
[2022-01-05 09:12] LABS: DIFFERENTIAL COMMENT MANUAL DIFFERENTIAL; PLATELET ESTIMATE, MANUAL NORMAL (130-450,000) (NORMAL); PLATELET MORPHOLOGY NORMAL APPEARANCE (NORMAL); RBC MORPHOLOGY (MULTIPLE) 1+ ANISOCYTOSIS (NORMAL)
[2022-01-05] MEDS: AZITHROMYCIN INJ 500 MG in SODIUM CHLORIDE 0.9% 250 ML IV SCH (09:45)
--- NOTE | 2022-01-05 17:05 | PROVIDER PROGRESS NOTE ---
Assessment/Plan - Problem List (1) Acute respiratory failure with hypoxia and hypercapnia Assessment/Plan: Patient has been on BiPAP intermittently/interchangeably with 3 L of oxygen via nasal cannula. He has been alert and awake throughout the day. White blood cell count 13.1. Yesterday was 17.3. Patient completed azithromycin today. Rocephin discontinued. Lasix switched from 40 mg IV to 40 mg p.o. Continue levalbuterol and budesonide. (2) Obesity hypoventilation syndrome Assessment/Plan: Continue CPAP nightly (3) ALONDRA on CPAP Assessment/Plan: Continue CPAP nightly (4) Super obesity Assessment/Plan: Continue to advise weight loss. - Current Meds Current Meds: Current Medications Generic Name Dose Route Start Last Admin Trade Name Koreyq PRN Reason Stop Dose Admin Budesonide 0.5 mg 01/03/22 21:00 01/05/22 07:04 Budesonide 0.5 Mg/2 Ml Neb INH 0.5 mg RTBID MARINO Administration Dexamethasone Sodium Phosphate 10 mg 01/04/22 09:00 01/05/22 09:00 Dexamethasone 10 Mg/Ml Vial IVP 10 mg DAILY MARINO Administration Enoxaparin Sodium 40 mg 01/03/22 21:00 01/05/22 09:00 Enoxaparin 40 Mg/0.4 Ml Syringe SUBQ 40 mg BID MARINO Administration Furosemide 40 mg 01/04/22 09:00 01/05/22 09:00 Furosemide 40 Mg/4 Ml Vial IVP 40 mg DAILY MARINO Administration Ceftriaxone Sodium 1 gm/ 100 mls @ 200 mls/hr 01/04/22 09:00 01/05/22 09:40 Sodium Chloride IV Infused DAILY MARINO Infusion Levalbuterol HCl 1.25 mg 01/03/22 21:00 01/05/22 15:07 Levalbuterol 1.25 Mg/3 Ml Neb INH 1.25 mg RTQID MARINO Administration Sodium Chloride 10 ml 01/03/22 17:00 01/05/22 15:47 Sodium Chloride Flush 0.9% 10 Ml Syringe IVP 10 ml 0100,0900,1700 MARINO Administration - Lab Result Fish Bone Diagrams: 01/05/22 07:26 01/05/22 07:26 - Additional Planning My Orders: My Active Orders 01/06/22 05:00 BMP - BASIC METABOLIC PANEL [CHEM] DAILYLAB CBC - COMP BLD CT W/AUTO DIFF [HEME] DAILYLAB 01/07/22 05:00 BMP - BASIC METABOLIC PANEL [CHEM] DAILYLAB CBC - COMP BLD CT W/AUTO DIFF [HEME] DAILYLAB 01/08/22 05:00 BMP - BASIC METABOLIC PANEL [CHEM] DAILYLAB CBC - COMP BLD CT W/AUTO DIFF [HEME] DAILYLAB Subjective - Subjective Patient Reports: Other (Patient was more alert, awake and oriented x3 today. He was on the BiPAP intermittently interchanging with oxygen via nasal cannula. His respiratory status significantly improved. Appreciable breath sounds with no overt wheezing.) Objective Vital Signs: Vital Signs - 24 hr 01/04/22 01/04/22 01/04/22 20:17 20:29 23:10 Temperature 36.3 C L 36.7 C Heart Rate 90 Heart Rate [ 81 91 Brachial] Respiratory 18 18 20 Rate Blood Pressure 126/71 [Left Radial artery] Blood Pressure 134/69 H [Right Brachial artery] O2 Saturation 92 98 01/04/22 01/05/22 01/05/22 23:13 03:00 05:30 Temperature 36.8 C Heart Rate 90 89 Heart Rate [ 86 Brachial] Respiratory 17 Rate Blood Pressure 143/73 H [Left Radial artery] Blood Pressure [Right Brachial artery] O2 Saturation 97 01/05/22 01/05/22 01/05/22 07:01 07:06 07:43 Temperature 36.4 C L Heart Rate 90 92 Heart Rate [ 85 Brachial] Respiratory 20 19 Rate Blood Pressure 127/63 [Left Radial artery] Blood Pressure [Right Brachial artery] O2 Saturation 96 01/05/22 01/05/22 01/05/22 11:02 11:25 13:30 Temperature 36.5 C Heart Rate 90 82 Heart Rate [ 84 Brachial] Respiratory 18 18 Rate Blood Pressure 142/96 H [Left Radial artery] Blood Pressure [Right Brachial artery] O2 Saturation 94 01/05/22 01/05/22 01/05/22 14:50 15:09 15:47 Temperature 36.4 C L Heart Rate 90 Heart Rate [ 72 Brachial] Respiratory 20 21 19 Rate Blood Pressure 146/81 H [Left Radial artery] Blood Pressure [Right Brachial artery] O2 Saturation 96 94 Oxygen O2 Source Nasal cannula Oxygen Flow Rate 6 I&O (Last 24 Hrs): Intake and Output Totals x24h 08/24/22 08/25/22 08/26/22 23:59 23:59 23:59 Intake Total 850 3796 1117 Output Total 4911 3965 Balance 115 -779 -6458 General: Alert, Oriented x3, No acute distress HEENT: PERRLA, EOMI Neck: Supple Neuro: Alert, Oriented Times 3 Cardiovascular: Regular rate Respiratory: Chest non-tender, No respiratory distress, Breath sounds nml Abdomen: Normal bowel sounds, Soft, No tenderness, No masses Extremities: Other (chronic changes due to lymphedema) Skin: No rashes, No breakdown, No significant lesion - Results Results: Laboratory Results WBC 13.1 x10^3/uL (4.8-10.8) H 01/05/22 07:26 RBC 4.03 10^6/uL (4.70-6.10) L 01/05/22 07:26 Hgb 10.8 g/dL (14.0-18.0) L 01/05/22 07:26 Hct 37.6 % (42.0-52.0) L 01/05/22 07:26 MCV 93.3 fL (80.0-94.0) 01/05/22 07: MCH 26.8 pg (27.0-31.0) L 01/05/22 07:26 MCHC 28.7 g/dL (32.0-36.0) L 01/05/22 07:26 RDW 17.3 % (12.0-15.0) H 01/05/22 07:26 Plt Count 214 10^3/uL (130-450) 01/05/22 07:26 MPV 10.0 fL (7.4-11.4) 01/05/22 07:26 Neut # (Auto) DIRECTOR TELEVISION NEWS 01/05/22 07:26 Lymph # (Auto) DIRECTOR TE[employer] NEWS 01/05/22 07:26 [place] # (Auto) DIRECTOR TELEVISION NEWS 01/05/22 07:26 Eos # (Auto) DIRECT[employer] TELE[employer] NEWS 01/05/22 07:26 Baso # (Auto) DIRECT[employer] TELE[employer] NEWS 01/05/22 07:26 Absolute Nucleated RBC DIRECTOR TELE[employer] NEWS 01/05/22 07:26 Total Counted 100 01/05/22 07:26 Band Neuts % (Manual) 6 % (0-10) 01/05/22 07:26 Abnorm Lymph % (Manual) 0 % 01/05/22 07: Metamyelocytes % 4 % (-0) H 01/05/22 07: Nucleated RBC % DIRECT[employer] TELE[employer] NEWS 01/05/22 07: Neutrophils # (Manual) 10.1 10^3/uL (1.5-6.6) H 01/05/22 07: Lymphocytes # (Manual) 1.6 10^3/uL (1.5-3.5) 01/05/22 07: Monocytes # (Manual) 0.7 10^3/uL (0.0-1.0) 01/05/22 07: Eosinophils # (Manual) 0.3 10^3/uL (0-0.7) 01/05/22 07: Basophils # (Manual) 0.0 10^3/uL (0-0.1) 01/05/22 07: Nucleated RBCs 1 % 01/04/22 07:54 Differential Comment MANUAL DIFFERENTIAL 01/05/22 07: Manual Slide Review Indicated 01/05/22 07:26 WBC Morphology NORMAL APPEARANCE (NORMAL) 01/04/22 07:54 Platelet Estimate NORMAL (130-450,000) (NORMAL) 01/05/22 07: Platelet Morphology NORMAL APPEARANCE (NORMAL) 01/05/22 07:26 RBC Morph Micro Appear 1+ ANISOCYTOSIS (NORMAL) 01/05/22 07:26 Bld Gas Analysis Time 1126 01/04/22 11:09 Sample Site LEFT RADIAL 01/04/22 11:09 ABG pH 7.23 (7.35-7.45) L 01/04/22 11:09 ABG pCO2 84 mmHg (34-45) H* 01/04/22 11:09 ABG pO2 82 mmHg (80-100) 01/04/22 11:09 ABG HCO3 34.1 mmol/L (22.0-26.0) H 01/04/22 11:09 ABG Total CO2 36.7 MMOL/L (21.0-29.0) H 01/04/22 11:09 ABG O2 Saturation 95 % (94-98) 01/04/22 11:09 ABG Base Excess 4.0 mmol/L (-2.0-3.0) H 01/04/22 11:09 [place] Test POSITIVE 01/04/22 11:09 O2 Delivery Device BiPAP 01/04/22 11:09 O2 Liters/Min 6.00 LPM 01/04/22 07:35 FiO2 40.00 01/04/22 11:09 EPAP 5 cmH2O 01/04/22 11:09 IPAP 14 cmH2O 01/04/22 11:09 Sodium 140 mmol/L (135-145) 01/05/22 07:26 Potassium 4.4 mmol/L (3.5-5.0) 01/05/22 07:26 Chloride 97 mmol/L (101-111) L 01/05/22 07:26 Carbon Dioxide 40 mmol/L (21-32) H* 01/05/22 07:26 Anion Gap 3.0 (6-13) L 01/05/22 07:26 BUN 18 mg/dL (6-20) 01/05/22 07:26 Creatinine 0.6 mg/dL (0.6-1.2) 01/05/22 07:26 Estimated GFR (MDRD) 156 (>89) 01/05/22 07:26 Glucose 89 mg/dL (70-100) 01/05/22 07:26 Calcium 8.6 mg/dL (8.5-10.3) 01/05/22 07:26 Total Bilirubin 0.9 mg/dL (0.2-1.0) 01/03/22 11:43 AST 25 IU/L (10-42) 01/03/22 11:43 ALT 30 IU/L (10-60) 01/03/22 11:43 Alkaline Phosphatase 58 IU/L (42-121) 01/03/22 11:43 B-Natriuretic Peptide 63 pg/mL (5-100) 01/03/22 11:43 Total Protein 7.4 g/dL (6.7-8.2) 01/03/22 11:43 Albumin 3.5 g/dL (3.2-5.5) 01/03/22 11:43 Globulin 3.9 g/dL (2.1-4.2) 01/03/22 11:43 Albumin/Globulin Ratio 0.9 (1.0-2.2) L 01/03/22 11:43 Lipase 22 U/L (22-51) 01/03/22 11:43 Nasal Adenovirus (PCR) NOT DETECTED 01/03/22 15:38 Nasal B. parapertussis DNA (PCR) NOT DETECTED 01/03/22 15:38 Nasal Coronavir 229E PCR NOT DETECTED 01/03/22 15:38 Nasal Coronavir HKU1 PCR NOT DETECTED 01/03/22 15:38 Nasal Coronavir NL63 PCR NOT DETECTED 01/03/22 15:38 Nasal Coronavir OC43 PCR NOT DETECTED 01/03/22 15:38 Nasal Enterovir/Rhinovir PCR NOT DETECTED 01/03/22 15:38 Nasal Influenza B PCR NOT DETECTED 01/03/22 15:38 Nasal Influenza A PCR NOT DETECTED 01/03/22 15:38 Nasal Parainfluen 1 PCR NOT DETECTED 01/03/22 15:38 Nasal Parainfluen 2 PCR NOT DETECTED 01/03/22 15:38 Nasal Parainfluen 3 PCR NOT DETECTED 01/03/22 15:38 Nasal Parainfluen 4 PCR NOT DETECTED 01/03/22 15:38 Nasal RSV (PCR) NOT DETECTED 01/03/22 15:38 Nasal B.pertussis DNA PCR NOT DETECTED 01/03/22 15:38 Nasal C.pneumoniae (PCR) NOT DETECTED 01/03/22 15:38 [place] Human Metapneumo PCR NOT DETECTED 01/03/22 15:38 Nasal M.pneumoniae (PCR) NOT DETECTED 01/03/22 15:38 Nasal SARS-CoV-2 (PCR) NOT DETECTED 01/03/22 15:38 ABX Reporting Has patient been on IV antibiotics over the past 48 hours?: No
[2022-01-05] MEDS: ENOXAPARIN 60 MG/0.6 ML SYRINGE SUBQ SCH (20:28)
[2022-01-06 05:11] LABS: BASOPHILS % (AUTO) 0.2 %; EOSINOPHILS % (AUTO) 0.3 %; HCT - HEMATOCRIT 37.3 % (42.0-52.0); LYMPHOCYTES # (AUTO) 1.6 10^3/uL (1.5-3.5); LYMPHOCYTES % (AUTO) 14.1 %; MEAN CORPUSCULAR HEMOGLOBIN 26.8 pg (27.0-31.0); MEAN CORPUSCULAR HGB CONC 29.5 g/dL (32.0-36.0); MEAN CORPUSCULAR VOLUME 90.8 fL (80.0-94.0); MEAN PLATELET VOLUME 10.4 fL (7.4-11.4); MONOCYTES # (AUTO) 0.9 10^3/uL (0.0-1.0); MONOCYTES % (AUTO) 7.8 %; NEUTROPHILS # (AUTO) 8.8 10^3/uL (1.5-6.6); NEUTROPHILS % (AUTO) 75.5 %; PLT - PLATELET COUNT 207 10^3/uL (130-450); RED BLOOD COUNT 4.11 10^6/uL (4.70-6.10); RED CELL DISTRIBUTION WIDTH 17.1 % (12.0-15.0); WHITE BLOOD COUNT 11.6 x10^3/uL (4.8-10.8)
[2022-01-06 05:19] LABS: CALCIUM 8.9 mg/dL (8.5-10.3); CREATININE 0.6 mg/dL (0.6-1.2); POTASSIUM 4.2 mmol/L (3.5-5.0)
[2022-01-06] MEDS: LEVALBUTEROL 1.25 MG/3 ML NEB INH SCH ×4 (07:14→19:10)
[2022-01-06] MEDS: BUDESONIDE 0.5 MG/2 ML NEB INH SCH ×2 (07:14→19:10)
--- NOTE | 2022-01-06 07:47 | PROVIDER PROGRESS NOTE ---
Assessment/Plan - Problem List (1) Acute respiratory failure with hypoxia and hypercapnia Assessment/Plan: Continue CPAP intermittently/interchangeably with 3 L of oxygen via nasal cannula. He was resting comfortably in bed. White blood cell count today was 11.6. Yesterday it was 13.1. Dexamethasone discontinued today. Patient completed azithromycin. Rocephin discontinued. On Lasix 40 mg p.o. daily. Continue lev albuterol and budesonide. [facility] for pack the patient can use discharge his CPAP device. Social work also facilitating to see/obtain an address where oxygen could be delivered for the patient. (2) Obesity hypoventilation syndrome Assessment/Plan: Continue CPAP nightly (3) ALONDRA on CPAP Assessment/Plan: Continue CPAP nightly (4) Super obesity Assessment/Plan: Continue to advise weight loss. (5) Conjunctivitis Qualifiers: Conjunctivitis type: acute Laterality: left Assessment/Plan: Erythromycin ointment ordered to apply in left eye twice daily. - Current Meds Current Meds: Current Medications Generic Name Dose Route Start Last Admin Trade Name Freq PRN Reason Stop Dose Admin Budesonide 0.5 mg 01/03/22 21:00 01/06/22 07:14 Budesonide 0.5 Mg/2 Ml Neb INH 0.5 mg RTBID MARINO Administration Enoxaparin Sodium 60 mg 01/05/22 21:00 01/05/22 20:28 Enoxaparin 60 Mg/0.6 Ml Syringe SUBQ 60 mg BID MARINO Administration Levalbuterol HCl 1.25 mg 01/03/22 21:00 01/06/22 07:14 Levalbuterol 1.25 Mg/3 Ml Neb INH 1.25 mg RTQID MARINO Administration Sodium Chloride 10 ml 01/03/22 17:00 01/05/22 23:48 Sodium Chloride Flush 0.9% 10 Ml Syringe IVP 10 ml 0100,0900,1700 MARINO Administration - Lab Result Fish Bone Diagrams: 01/06/22 04:32 01/06/22 04:32 - Additional Planning My Orders: My Active Orders 01/05/22 21:00 Enoxaparin [Lovenox] 60 mg SUBQ BID 01/06/22 09:00 Furosemide [Lasix] 40 mg PO DAILY 01/07/22 05:00 BMP - BASIC METABOLIC PANEL [CHEM] DAILYLAB CBC - COMP BLD CT W/AUTO DIFF [HEME] DAILYLAB 01/08/22 05:00 BMP - BASIC METABOLIC PANEL [CHEM] DAILYLAB CBC - COMP BLD CT W/AUTO DIFF [HEME] DAILYLAB Subjective - Subjective Patient Reports: Other (He was resting comfortably in the recliner at the time of exam. He is breathing comfortably on supplemental oxygen via nasal cannula. He has redness and his left eye with some conjunctival drainage.) Objective Vital Signs: Vital Signs - 24 hr 01/05/22 01/05/22 01/05/22 11:02 11:25 13:30 Temperature 36.5 C Heart Rate 90 82 Heart Rate [ 84 Brachial] Respiratory 18 18 Rate Blood Pressure 142/96 H [Left Radial artery] O2 Saturation 94 01/05/22 01/05/22 01/05/22 14:50 15:09 15:47 Temperature 36.4 C L Heart Rate 90 Heart Rate [ 72 Brachial] Respiratory 20 21 19 Rate Blood Pressure 146/81 H [Left Radial artery] O2 Saturation 96 94 01/05/22 01/05/22 01/06/22 19:30 20:03 00:02 Temperature 37.0 C 36.4 C L Heart Rate 90 Heart Rate [ 85 75 Brachial] Respiratory 20 21 24 Rate Blood Pressure 115/67 137/72 H [Left Radial artery] O2 Saturation 93 98 01/06/22 01/06/22 01/06/22 00:30 04:30 04:34 Temperature 36.4 C L Heart Rate 60 81 Heart Rate [ 83 Brachial] Respiratory 20 Rate Blood Pressure 135/78 H [Left Radial artery] O2 Saturation 91 L 01/06/22 07:15 Temperature Heart Rate 76 Heart Rate [ Brachial] Respiratory 18 Rate Blood Pressure [Left Radial artery] O2 Saturation Oxygen O2 Source Nasal cannula Oxygen Flow Rate 6 I&O (Last 24 Hrs): Intake and Output Totals x24h 01/04/22 01/05/22 01/06/22 23:59 23:59 23:59 Intake Total 2182 4917 200 Output Total 1740 2421 1300 Balance -[phone] General: Alert, Oriented x3, No acute distress HEENT: PERRLA, EOMI, Other (left eye conjuncta appears hyperemic with conjunctival drainage) Neck: Supple, No JVD Neuro: Alert, Oriented Times 3 Cardiovascular: Regular rate, No murmurs Respiratory: Chest non-tender, No respiratory distress, Breath sounds nml Abdomen: Normal bowel sounds, Soft, No tenderness, No masses Extremities: Other (chronic changes due to lymphedema) Skin: No rashes, No breakdown, No significant lesion - Results Results: Laboratory Results WBC 11.6 x10^3/uL (4.8-10.8) H 01/06/22 04:32 RBC 4.11 10^6/uL (4.70-6.10) L 01/06/22 04:32 Hgb 11.0 g/dL (14.0-18.0) L 01/06/22 04:32 Hct 37.3 % (42.0-52.0) L 01/06/22 04:32 MCV 90.8 fL (80.0-94.0) 01/06/22 04:32 MCH 26.8 pg (27.0-31.0) L 01/06/22 04:32 MCHC 29.5 g/dL (32.0-36.0) L 01/06/22 04:32 RDW 17.1 % (12.0-15.0) H 01/06/22 04:32 Plt Count 207 10^3/uL (130-450) 01/06/22 04:32 MPV 10.4 fL (7.4-11.4) 01/06/22 04:32 Neut # (Auto) 8.8 10^3/uL (1.5-6.6) H 01/06/22 04:32 Lymph # (Auto) 1.6 10^3/uL (1.5-3.5) 01/06/22 04:32 [place] # (Auto) 0.9 10^3/uL (0.0-1.0) 01/06/22 04:32 Eos # (Auto) 0.0 10^3/uL (0.0-0.7) 01/06/22 04:32 Baso # (Auto) 0.0 10^3/uL (0.0-0.1) 01/06/22 04:32 Absolute Nucleated RBC 0.00 x10^3/uL 01/06/22 04:32 Total Counted 100 01/05/22 07: Band Neuts % (Manual) 6 % (0-10) 01/05/22 07: Abnorm Lymph % (Manual) 0 % 01/05/22 07: Metamyelocytes % 4 % (-0) H 01/05/22 07: Nucleated RBC % 0.0 /100WBC 01/06/22 04:32 Neutrophils # (Manual) 10.1 10^3/uL (1.5-6.6) H 01/05/22 07: Lymphocytes # (Manual) 1.6 10^3/uL (1.5-3.5) 01/05/22 07: Monocytes # (Manual) 0.7 10^3/uL (0.0-1.0) 01/05/22 07: Eosinophils # (Manual) 0.3 10^3/uL (0-0.7) 01/05/22 07: Basophils # (Manual) 0.0 10^3/uL (0-0.1) 01/05/22 07: Nucleated RBCs 1 % 01/04/22 07:54 Differential Comment MANUAL DIFFERENTIAL 01/05/22 07: Manual Slide Review Indicated 01/05/22 07:26 WBC Morphology NORMAL APPEARANCE (NORMAL) 01/04/22 07:54 Platelet Estimate NORMAL (130-450,000) (NORMAL) 01/05/22 07: Platelet Morphology NORMAL APPEARANCE (NORMAL) 01/05/22 07:26 RBC Morph Micro Appear 1+ ANISOCYTOSIS (NORMAL) 01/05/22 07:26 Bld Gas Analysis Time 1126 01/04/22 11:09 Sample Site LEFT RADIAL 01/04/22 11:09 ABG pH 7.23 (7.35-7.45) L 01/04/22 11:09 ABG pCO2 84 mmHg (34-45) H* 01/04/22 11:09 ABG pO2 82 mmHg (80-100) 01/04/22 11:09 ABG HCO3 34.1 mmol/L (22.0-26.0) H 01/04/22 11:09 ABG Total CO2 36.7 MMOL/L (21.0-29.0) H 01/04/22 11:09 ABG O2 Saturation 95 % (94-98) 01/04/22 11:09 ABG Base Excess 4.0 mmol/L (-2.0-3.0) H 01/04/22 11:09 [place] Test POSITIVE 01/04/22 11:09 O2 Delivery Device BiPAP 01/04/22 11:09 O2 Liters/Min 6.00 LPM 01/04/22 07:35 FiO2 40.00 01/04/22 11:09 EPAP 5 cmH2O 01/04/22 11:09 IPAP 14 cmH2O 01/04/22 11:09 Sodium 137 mmol/L (135-145) 01/06/22 04:32 Potassium 4.2 mmol/L (3.5-5.0) 01/06/22 04:32 Chloride 96 mmol/L (101-111) L 01/06/22 04:32 Carbon Dioxide 34 mmol/L (21-32) H 01/06/22 04:32 Anion Gap 7.0 (6-13) 01/06/22 04:32 BUN 20 mg/dL (6-20) 01/06/22 04:32 Creatinine 0.6 mg/dL (0.6-1.2) 01/06/22 04:32 Estimated GFR (MDRD) 156 (>89) 01/06/22 04:32 Glucose 90 mg/dL (70-100) 01/06/22 04:32 Calcium 8.9 mg/dL (8.5-10.3) 01/06/22 04:32 Total Bilirubin 0.9 mg/dL (0.2-1.0) 01/03/22 11:43 AST 25 IU/L (10-42) 01/03/22 11:43 ALT 30 IU/L (10-60) 01/03/22 11:43 Alkaline Phosphatase 58 IU/L (42-121) 01/03/22 11:43 B-Natriuretic Peptide 63 pg/mL (5-100) 01/03/22 11:43 Total Protein 7.4 g/dL (6.7-8.2) 01/03/22 11:43 Albumin 3.5 g/dL (3.2-5.5) 01/03/22 11:43 Globulin 3.9 g/dL (2.1-4.2) 01/03/22 11:43 Albumin/Globulin Ratio 0.9 (1.0-2.2) L 01/03/22 11:43 Lipase 22 U/L (22-51) 01/03/22 11:43 Nasal Adenovirus (PCR) NOT DETECTED 01/03/22 15:38 Nasal B. parapertussis DNA (PCR) NOT DETECTED 01/03/22 15:38 Nasal Coronavir 229E PCR NOT DETECTED 01/03/22 15:38 Nasal Coronavir HKU1 PCR NOT DETECTED 01/03/22 15:38 Nasal Coronavir NL63 PCR NOT DETECTED 01/03/22 15:38 Nasal Coronavir OC43 PCR NOT DETECTED 01/03/22 15:38 Nasal Enterovir/Rhinovir PCR NOT DETECTED 01/03/22 15:38 Nasal Influenza B PCR NOT DETECTED 01/03/22 15:38 Nasal Influenza A PCR NOT DETECTED 01/03/22 15:38 Nasal Parainfluen 1 PCR NOT DETECTED 01/03/22 15:38 Nasal Parainfluen 2 PCR NOT DETECTED 01/03/22 15:38 Nasal Parainfluen 3 PCR NOT DETECTED 01/03/22 15:38 Nasal Parainfluen 4 PCR NOT DETECTED 01/03/22 15:38 Nasal RSV (PCR) NOT DETECTED 01/03/22 15:38 Nasal B.pertussis DNA PCR NOT DETECTED 01/03/22 15:38 Nasal C.pneumoniae (PCR) NOT DETECTED 01/03/22 15:38 [place] Human Metapneumo PCR NOT DETECTED 01/03/22 15:38 Nasal M.pneumoniae (PCR) NOT DETECTED 01/03/22 15:38 Nasal SARS-CoV-2 (PCR) NOT DETECTED 01/03/22 15:38 ABX Reporting Has patient been on IV antibiotics over the past 48 hours?: No
[2022-01-06] MEDS: ENOXAPARIN 60 MG/0.6 ML SYRINGE SUBQ SCH ×2 (08:50→21:17)
[2022-01-06] MEDS: FUROSEMIDE 40 MG TABLET PO SCH (08:50)
[2022-01-06] MEDS: SODIUM CHLORIDE FLUSH 0.9% 10 ML SYRINGE IVP SCH ×3 (08:51→23:52)
[2022-01-06] MEDS: ERYTHROMYCIN OPHTH OINT 1 GM TUBE LEFTEYE SCH ×2 (12:33→21:17)
[2022-01-07 04:39] LABS: BASOPHILS % (AUTO) 0.4 %; EOSINOPHILS # (AUTO) 0.1 10^3/uL (0.0-0.7); EOSINOPHILS % (AUTO) 1.3 %; HCT - HEMATOCRIT 38.4 % (42.0-52.0); HGB - HEMOGLOBIN 11.5 g/dL (14.0-18.0); LYMPHOCYTES % (AUTO) 19.5 %; MEAN CORPUSCULAR HEMOGLOBIN 26.6 pg (27.0-31.0); MEAN CORPUSCULAR HGB CONC 29.9 g/dL (32.0-36.0); MEAN CORPUSCULAR VOLUME 88.7 fL (80.0-94.0); MEAN PLATELET VOLUME 9.8 fL (7.4-11.4); MONOCYTES # (AUTO) 0.8 10^3/uL (0.0-1.0); MONOCYTES % (AUTO) 7.2 %; NEUTROPHILS # (AUTO) 7.3 10^3/uL (1.5-6.6); PLT - PLATELET COUNT 190 10^3/uL (130-450); RED BLOOD COUNT 4.33 10^6/uL (4.70-6.10); RED CELL DISTRIBUTION WIDTH 17.2 % (12.0-15.0); WHITE BLOOD COUNT 10.4 x10^3/uL (4.8-10.8)
[2022-01-07 04:56] LABS: CALCIUM 8.9 mg/dL (8.5-10.3); CREATININE 0.7 mg/dL (0.6-1.2)
--- NOTE | 2022-01-07 07:21 | PROVIDER PROGRESS NOTE ---
Assessment/Plan - Problem List (1) Acute respiratory failure with hypoxia and hypercapnia Assessment/Plan: Continue CPAP intermittently/interchangeably with 3 L of oxygen via nasal cannula. He was resting comfortably in bed. White blood cell count today was 10.6. Dexamethasone discontinued today. Patient completed azithromycin. Rocephin discontinued. On Lasix 40 mg p.o. daily. Continue levalbuterol and budesonide. Plan will be to reach out to the [facility] to see if they can donate for pack the patient can use discharge his CPAP device. Social work also facilitating to see/obtain an address where oxygen could be delivered for the patient. (2) Obesity hypoventilation syndrome Assessment/Plan: Continue CPAP nightly (3) ALONDRA on CPAP Assessment/Plan: Continue CPAP nightly (4) Super obesity Assessment/Plan: Continue to advise weight loss. (5) Conjunctivitis Qualifiers: Conjunctivitis type: acute Laterality: left Assessment/Plan: Improving. Erythromycin ointment ordered to apply in left eye twice daily. (5) Conjunctivitis Qualifiers: Conjunctivitis type: acute Laterality: left - Current Meds Current Meds: Current Medications Generic Name Dose Route Start Last Admin Trade Name Freq PRN Reason Stop Dose Admin Budesonide 0.5 mg 01/03/22 21:00 01/06/22 19:10 Budesonide 0.5 Mg/2 Ml Neb INH 0.5 mg RTBID MARINO Administration Enoxaparin Sodium 60 mg 01/05/22 21:00 01/06/22 21:17 Enoxaparin 60 Mg/0.6 Ml Syringe SUBQ 60 mg BID MARINO Administration Erythromycin 1 applic 01/06/22 12:00 01/06/22 21:17 Erythromycin Ophth Oint 1 Gm Tube LEFTEYE 1 applic BID MARINO Administration Furosemide 40 mg 01/06/22 09:00 01/06/22 08:50 Furosemide 40 Mg Tablet PO 40 mg DAILY MARINO Administration Levalbuterol HCl 1.25 mg 01/03/22 21:00 01/06/22 19:10 Levalbuterol 1.25 Mg/3 Ml Neb INH 1.25 mg RTQID MARINO Administration Sodium Chloride 10 ml 01/03/22 17:00 01/06/22 23:52 Sodium Chloride Flush 0.9% 10 Ml Syringe IVP 10 ml 0100,0900,1700 MARINO Administration - Lab Result Fish Bone Diagrams: 01/07/22 04:31 01/07/22 04:31 - Additional Planning My Orders: My Active Orders 01/06/22 09:00 Furosemide [Lasix] 40 mg PO DAILY 01/06/22 Lunch Cardiac Diet [DIET] 01/06/22 12:00 Erythromycin Ophth Oint [Ilotycin Ophth Oint] 1 applic LEFTEYE BID 01/08/22 05:00 BMP - BASIC METABOLIC PANEL [CHEM] DAILYLAB CBC - COMP BLD CT W/AUTO DIFF [HEME] DAILYLAB Subjective - Subjective Patient Reports: Other (He was resting comfortably in bed at time of exam. He denied any new or significant complaints. Redness in left eye is significantly improved.) Objective Vital Signs: Vital Signs - 24 hr 01/06/22 01/06/22 01/06/22 08:12 10:51 12:15 Temperature 36.8 C 36.9 C Heart Rate 77 Heart Rate [ 93 95 Brachial] Respiratory 22 20 21 Rate Blood Pressure 155/94 H 158/91 H [Left Radial artery] O2 Saturation 95 93 01/06/22 01/06/22 01/06/22 15:11 15:56 17:04 Temperature 36.6 C Heart Rate 89 Heart Rate [ 75 Brachial] Respiratory 23 18 Rate Blood Pressure 146/81 H [Left Radial artery] O2 Saturation 90 L 91 L 01/06/22 01/07/22 19:10 00:01 Temperature 36.9 C Heart Rate 86 Heart Rate [ 88 Brachial] Respiratory 20 20 Rate Blood Pressure 138/71 H [Left Radial artery] O2 Saturation 92 Oxygen O2 Source Patient supplied BIPAP Oxygen Flow Rate 6 I&O (Last 24 Hrs): Intake and Output Totals x24h 01/05/22 01/06/22 01/07/22 23:59 23:59 23:59 Intake Total 4917 5500 1500 Output Total 0832 8288 4540 [facility] -[phone] Comments/Notes: General: Alert, Oriented x3, No acute distress HEENT: PERRLA, EOMI, Other (left eye conjuncta appears hyperemic with conjunctival drainage) Neck: Supple, No JVD Neuro: Alert, Oriented Times 3 Cardiovascular: Regular rate, No murmurs Respiratory: Chest non-tender, No respiratory distress, Breath sounds nml Abdomen: Normal bowel sounds, Soft, No tenderness, No masses Extremities: Other (chronic changes due to lymphedema) Skin: No rashes, No breakdown, No significant lesion - Results Results: Laboratory Results WBC 10.4 x10^3/uL (4.8-10.8) 01/07/22 04:31 RBC 4.33 10^6/uL (4.70-6.10) L 01/07/22 04:31 Hgb 11.5 g/dL (14.0-18.0) L 01/07/22 04:31 Hct 38.4 % (42.0-52.0) L 01/07/22 04:31 MCV 88.7 fL (80.0-94.0) 01/07/22 04:31 MCH 26.6 pg (27.0-31.0) L 01/07/22 04:31 MCHC 29.9 g/dL (32.0-36.0) L 01/07/22 04:31 RDW 17.2 % (12.0-15.0) H 01/07/22 04:31 Plt Count 190 10^3/uL (130-450) 01/07/22 04:31 MPV 9.8 fL (7.4-11.4) 01/07/22 04:31 Neut # (Auto) 7.3 10^3/uL (1.5-6.6) H 01/07/22 04:31 Lymph # (Auto) 2.0 10^3/uL (1.5-3.5) 01/07/22 04:31 [place] # (Auto) 0.8 10^3/uL (0.0-1.0) 01/07/22 04:31 Eos # (Auto) 0.1 10^3/uL (0.0-0.7) 01/07/22 04:31 Baso # (Auto) 0.0 10^3/uL (0.0-0.1) 01/07/22 04:31 Absolute Nucleated RBC 0.00 x10^3/uL 01/07/22 04:31 Total Counted 100 01/05/22 07:26 Band Neuts % (Manual) 6 % (0-10) 01/05/22 07:26 Abnorm Lymph % (Manual) 0 % 01/05/22 07:26 Metamyelocytes % 4 % (-0) H 01/05/22 07: Nucleated RBC % 0.0 /100WBC 01/07/22 04:31 Neutrophils # (Manual) 10.1 10^3/uL (1.5-6.6) H 01/05/22 07: Lymphocytes # (Manual) 1.6 10^3/uL (1.5-3.5) 01/05/22 07: Monocytes # (Manual) 0.7 10^3/uL (0.0-1.0) 01/05/22 07: Eosinophils # (Manual) 0.3 10^3/uL (0-0.7) 01/05/22 07: Basophils # (Manual) 0.0 10^3/uL (0-0.1) 01/05/22 07: Nucleated RBCs 1 % 01/04/22 07:54 Differential Comment MANUAL DIFFERENTIAL 01/05/22 07: Manual Slide Review Indicated 01/05/22 07:26 WBC Morphology NORMAL APPEARANCE (NORMAL) 01/04/22 07:54 Platelet Estimate NORMAL (130-450,000) (NORMAL) 01/05/22 07: Platelet Morphology NORMAL APPEARANCE (NORMAL) 01/05/22 07:26 RBC Morph Micro Appear 1+ ANISOCYTOSIS (NORMAL) 01/05/22 07:26 Bld Gas Analysis Time 1126 01/04/22 11:09 Sample Site LEFT RADIAL 01/04/22 11:09 ABG pH 7.23 (7.35-7.45) L 01/04/22 11:09 ABG pCO2 84 mmHg (34-45) H* 01/04/22 11:09 ABG pO2 82 mmHg (80-100) 01/04/22 11:09 ABG HCO3 34.1 mmol/L (22.0-26.0) H 01/04/22 11:09 ABG Total CO2 36.7 MMOL/L (21.0-29.0) H 01/04/22 11:09 ABG O2 Saturation 95 % (94-98) 01/04/22 11:09 ABG Base Excess 4.0 mmol/L (-2.0-3.0) H 01/04/22 11:09 [place] Test POSITIVE 01/04/22 11:09 O2 Delivery Device BiPAP 01/04/22 11:09 O2 Liters/Min 6.00 LPM 01/04/22 07:35 FiO2 40.00 01/04/22 11:09 EPAP 5 cmH2O 01/04/22 11:09 IPAP 14 cmH2O 01/04/22 11:09 Sodium 137 mmol/L (135-145) 01/07/22 04:31 Potassium 4.0 mmol/L (3.5-5.0) 01/07/22 04:31 Chloride 96 mmol/L (101-111) L 01/07/22 04:31 Carbon Dioxide 32 mmol/L (21-32) 01/07/22 04:31 Anion Gap 9.0 (6-13) 01/07/22 04:31 BUN 17 mg/dL (6-20) 01/07/22 04:31 Creatinine 0.7 mg/dL (0.6-1.2) 01/07/22 04:31 Estimated GFR (MDRD) 131 (>89) 01/07/22 04:31 Glucose 88 mg/dL (70-100) 01/07/22 04:31 Calcium 8.9 mg/dL (8.5-10.3) 01/07/22 04:31 Total Bilirubin 0.9 mg/dL (0.2-1.0) 01/03/22 11:43 AST 25 IU/L (10-42) 01/03/22 11:43 ALT 30 IU/L (10-60) 01/03/22 11:43 Alkaline Phosphatase 58 IU/L (42-121) 01/03/22 11:43 B-Natriuretic Peptide 63 pg/mL (5-100) 01/03/22 11:43 Total Protein 7.4 g/dL (6.7-8.2) 01/03/22 11:43 Albumin 3.5 g/dL (3.2-5.5) 01/03/22 11:43 Globulin 3.9 g/dL (2.1-4.2) 01/03/22 11:43 Albumin/Globulin Ratio 0.9 (1.0-2.2) L 01/03/22 11:43 Lipase 22 U/L (22-51) 01/03/22 11:43 Nasal Adenovirus (PCR) NOT DETECTED 01/03/22 15:38 Nasal B. parapertussis DNA (PCR) NOT DETECTED 01/03/22 15:38 Nasal Coronavir 229E PCR NOT DETECTED 01/03/22 15:38 Nasal Coronavir HKU1 PCR NOT DETECTED 01/03/22 15:38 Nasal Coronavir NL63 PCR NOT DETECTED 01/03/22 15:38 Nasal Coronavir OC43 PCR NOT DETECTED 01/03/22 15:38 Nasal Enterovir/Rhinovir PCR NOT DETECTED 01/03/22 15:38 Nasal Influenza B PCR NOT DETECTED 01/03/22 15:38 Nasal Influenza A PCR NOT DETECTED 01/03/22 15:38 Nasal Parainfluen 1 PCR NOT DETECTED 01/03/22 15:38 Nasal Parainfluen 2 PCR NOT DETECTED 01/03/22 15:38 Nasal Parainfluen 3 PCR NOT DETECTED 01/03/22 15:38 Nasal Parainfluen 4 PCR NOT DETECTED 01/03/22 15:38 Nasal RSV (PCR) NOT DETECTED 01/03/22 15:38 Nasal B.pertussis DNA PCR NOT DETECTED 01/03/22 15:38 Nasal C.pneumoniae (PCR) NOT DETECTED 01/03/22 15:38 [place] Human Metapneumo PCR NOT DETECTED 01/03/22 15:38 Nasal M.pneumoniae (PCR) NOT DETECTED 01/03/22 15:38 Nasal SARS-CoV-2 (PCR) NOT DETECTED 01/03/22 15:38 ABX Reporting Has patient been on IV antibiotics over the past 48 hours?: No
[2022-01-07] MEDS: BUDESONIDE 0.5 MG/2 ML NEB INH SCH ×2 (08:08→18:33)
[2022-01-07] MEDS: LEVALBUTEROL 1.25 MG/3 ML NEB INH SCH ×4 (08:08→18:33)
[2022-01-07] MEDS: SODIUM CHLORIDE FLUSH 0.9% 10 ML SYRINGE IVP SCH ×2 (09:00→16:21)
[2022-01-07] MEDS: FUROSEMIDE 40 MG TABLET PO SCH (09:00)
[2022-01-07] MEDS: ENOXAPARIN 60 MG/0.6 ML SYRINGE SUBQ SCH ×2 (09:00→21:36)
[2022-01-07] MEDS: ERYTHROMYCIN OPHTH OINT 1 GM TUBE LEFTEYE SCH ×2 (09:00→21:36)
[2022-01-08] MEDS: SODIUM CHLORIDE FLUSH 0.9% 10 ML SYRINGE IVP SCH ×4 (04:23→23:20)
[2022-01-08 05:59] LABS: BASOPHILS % (AUTO) 0.4 %; EOSINOPHILS # (AUTO) 0.2 10^3/uL (0.0-0.7); EOSINOPHILS % (AUTO) 1.6 %; HCT - HEMATOCRIT 39.4 % (42.0-52.0); LYMPHOCYTES # (AUTO) 1.5 10^3/uL (1.5-3.5); LYMPHOCYTES % (AUTO) 15.6 %; MEAN CORPUSCULAR HEMOGLOBIN 26.9 pg (27.0-31.0); MEAN CORPUSCULAR HGB CONC 30.5 g/dL (32.0-36.0); MEAN CORPUSCULAR VOLUME 88.3 fL (80.0-94.0); MEAN PLATELET VOLUME 10.2 fL (7.4-11.4); MONOCYTES # (AUTO) 0.7 10^3/uL (0.0-1.0); MONOCYTES % (AUTO) 6.7 %; NEUTROPHILS # (AUTO) 7.3 10^3/uL (1.5-6.6); NEUTROPHILS % (AUTO) 73.5 %; PLT - PLATELET COUNT 221 10^3/uL (130-450); RED BLOOD COUNT 4.46 10^6/uL (4.70-6.10); RED CELL DISTRIBUTION WIDTH 17.1 % (12.0-15.0); WHITE BLOOD COUNT 9.9 x10^3/uL (4.8-10.8)
[2022-01-08 06:12] LABS: CALCIUM 9.2 mg/dL (8.5-10.3); CREATININE 0.7 mg/dL (0.6-1.2); POTASSIUM 4.4 mmol/L (3.5-5.0)
[2022-01-08] MEDS: LEVALBUTEROL 1.25 MG/3 ML NEB INH SCH (07:22)
[2022-01-08] MEDS: BUDESONIDE 0.5 MG/2 ML NEB INH SCH (07:22)
[2022-01-08] MEDS: FUROSEMIDE 40 MG TABLET PO SCH (09:22)
[2022-01-08] MEDS: ENOXAPARIN 60 MG/0.6 ML SYRINGE SUBQ SCH ×2 (09:22→20:31)
[2022-01-08] MEDS: ERYTHROMYCIN OPHTH OINT 1 GM TUBE LEFTEYE SCH ×2 (09:22→20:31)
--- NOTE | 2022-01-08 11:10 | PROVIDER PROGRESS NOTE ---
Assessment/Plan - Problem List (1) Acute respiratory failure with hypoxia and hypercapnia Assessment/Plan: Continue CPAP intermittently/interchangeably with 2 L of oxygen via nasal cannula with activity. Patient may be on room air at rest He was resting comfortably in bed. White blood cell count today was 9.9 Dexamethasone discontinued today. Patient completed azithromycin. Rocephin discontinued. On Lasix 40 mg p.o. daily. Continue levalbuterol and budesonide. Plan will be to reach out to the hospital [facility] to see if they can donate for pack the patient can use discharge his CPAP device. Social work also facilitating to see/obtain an address where oxygen could be delivered for the patient. (2) Obesity hypoventilation syndrome Assessment/Plan: Continue CPAP nightly (3) ALONDRA on CPAP Assessment/Plan: Continue CPAP nightly (4) Super obesity Assessment/Plan: Continue to advise weight loss. (5) Conjunctivitis Qualifiers: Conjunctivitis type: acute Laterality: left Assessment/Plan: Improving. Erythromycin ointment ordered to apply in left eye twice daily. (5) Conjunctivitis Qualifiers: Conjunctivitis type: acute Laterality: left - Current Meds Current Meds: Current Medications Generic Name Dose Route Start Last Admin Trade Name Freq PRN Reason Stop Dose Admin Budesonide 0.5 mg 01/03/22 21:00 01/08/22 07:22 Budesonide 0.5 Mg/2 Ml Neb INH 0.5 mg RTBID MARINO Administration Enoxaparin Sodium 60 mg 01/05/22 21:00 01/08/22 09:22 Enoxaparin 60 Mg/0.6 Ml Syringe SUBQ 60 mg BID MARINO Administration Erythromycin 1 applic 01/06/22 12:00 01/08/22 09:22 Erythromycin Ophth Oint 1 Gm Tube LEFTEYE 1 applic BID MARINO Administration Furosemide 40 mg 01/06/22 09:00 01/08/22 09:22 Furosemide 40 Mg Tablet PO 40 mg DAILY MARINO Administration Levalbuterol HCl 1.25 mg 01/03/22 21:00 01/08/22 07:22 Levalbuterol 1.25 Mg/3 Ml Neb INH 1.25 mg RTQID MARINO Administration Sodium Chloride 10 ml 01/03/22 17:00 01/08/22 09:22 Sodium Chloride Flush 0.9% 10 Ml Syringe IVP 10 ml 0100,0900,1700 [facility] Administration - Lab Result Fish Bone Diagrams: 01/08/22 05:13 01/08/22 05:13 - Additional Planning My Orders: My Active Orders 01/08/22 07:33 Oxygen Desat. Study w/Exercise [RC] .ONCE Subjective - Subjective Patient Reports: Other (He was resting comfortably in bed at time of visit. He denied any complaints.) Objective Vital Signs: Vital Signs - 24 hr 01/07/22 01/07/22 01/07/22 11:58 13:46 14:57 Temperature Heart Rate 79 7 L Heart Rate [ 81 Brachial] Respiratory 18 21 21 Rate Blood Pressure [Left Brachial artery] Blood Pressure 136/75 H [Left Radial artery] O2 Saturation 95 01/07/22 01/07/22 01/07/22 16:58 17:35 18:37 Temperature 36.9 C Heart Rate 89 Heart Rate [ 86 Brachial] Respiratory 18 23 Rate Blood Pressure [Left Brachial artery] Blood Pressure 122/57 L [Left Radial artery] O2 Saturation 93 95 01/08/22 01/08/22 01/08/22 00:00 01:30 07:23 Temperature Heart Rate 85 Heart Rate [ 96 Brachial] Respiratory 24 16 Rate Blood Pressure 142/77 H [Left Brachial artery] Blood Pressure [Left Radial artery] O2 Saturation 87 L 93 01/08/22 01/08/22 09:05 09:25 Temperature 37.1 C Heart Rate 110 H Heart Rate [ 103 H Brachial] Respiratory 20 Rate Blood Pressure 132/68 H [Left Brachial artery] Blood Pressure [Left Radial artery] O2 Saturation 91 L Oxygen O2 Source Room air Oxygen Flow Rate 6 I&O (Last 24 Hrs): Intake and Output Totals x24h 01/06/22 01/07/22 01/08/22 23:59 23:59 23:59 Intake Total 5500 6250 720 Output Total 7550 92695 4300 Balance -7132 -7960 -5190 Comments/Notes: General: Alert, Oriented x3, No acute distress HEENT: PERRLA, EOMI, Other (left eye redness and drainage improving) Neck: Supple, No JVD Neuro: Alert, Oriented Times 3 Cardiovascular: Regular rate, No murmurs Respiratory: Chest non-tender, No respiratory distress, Breath sounds nml Abdomen: Normal bowel sounds, Soft, No tenderness, No masses Extremities: Other (chronic changes due to lymphedema) Skin: No rashes, No breakdown, No significant lesion - Results Results: Laboratory Results WBC 9.9 x10^3/uL (4.8-10.8) 01/08/22 05:13 RBC 4.46 10^6/uL (4.70-6.10) L 01/08/22 05:13 Hgb 12.0 g/dL (14.0-18.0) L 01/08/22 05:13 Hct 39.4 % (42.0-52.0) L 01/08/22 05:13 MCV 88.3 fL (80.0-94.0) 01/08/22 05:13 MCH 26.9 pg (27.0-31.0) L 01/08/22 05:13 MCHC 30.5 g/dL (32.0-36.0) L 01/08/22 05:13 RDW 17.1 % (12.0-15.0) H 01/08/22 05:13 Plt Count 221 10^3/uL (130-450) 01/08/22 05:13 MPV 10.2 fL (7.4-11.4) 01/08/22 05:13 Neut # (Auto) 7.3 10^3/uL (1.5-6.6) H 01/08/22 05:13 Lymph # (Auto) 1.5 10^3/uL (1.5-3.5) 01/08/22 05:13 [place] # (Auto) 0.7 10^3/uL (0.0-1.0) 01/08/22 05:13 Eos # (Auto) 0.2 10^3/uL (0.0-0.7) 01/08/22 05:13 Baso # (Auto) 0.0 10^3/uL (0.0-0.1) 01/08/22 05:13 Absolute Nucleated RBC 0.00 x10^3/uL 01/08/22 05:13 Total Counted 100 01/05/22 07:26 Band Neuts % (Manual) 6 % (0-10) 01/05/22 07:26 Abnorm Lymph % (Manual) 0 % 01/05/22 07:26 Metamyelocytes % 4 % (-0) H 01/05/22 07: Nucleated RBC % 0.0 /100WBC 01/08/22 05:13 Neutrophils # (Manual) 10.1 10^3/uL (1.5-6.6) H 01/05/22 07: Lymphocytes # (Manual) 1.6 10^3/uL (1.5-3.5) 01/05/22 07: Monocytes # (Manual) 0.7 10^3/uL (0.0-1.0) 01/05/22 07: Eosinophils # (Manual) 0.3 10^3/uL (0-0.7) 01/05/22 07: Basophils # (Manual) 0.0 10^3/uL (0-0.1) 01/05/22 07: Nucleated RBCs 1 % 01/04/22 07:54 Differential Comment MANUAL DIFFERENTIAL 01/05/22 07: Manual Slide Review Indicated 01/05/22 07:26 WBC Morphology NORMAL APPEARANCE (NORMAL) 01/04/22 07:54 Platelet Estimate NORMAL (130-450,000) (NORMAL) 01/05/22 07: Platelet Morphology NORMAL APPEARANCE (NORMAL) 01/05/22 07:26 RBC Morph Micro Appear 1+ ANISOCYTOSIS (NORMAL) 01/05/22 07:26 Bld Gas Analysis Time 1126 01/04/22 11:09 Sample Site LEFT RADIAL 01/04/22 11:09 ABG pH 7.23 (7.35-7.45) L 01/04/22 11:09 ABG pCO2 84 mmHg (34-45) H* 01/04/22 11:09 ABG pO2 82 mmHg (80-100) 01/04/22 11:09 ABG HCO3 34.1 mmol/L (22.0-26.0) H 01/04/22 11:09 ABG Total CO2 36.7 MMOL/L (21.0-29.0) H 01/04/22 11:09 ABG O2 Saturation 95 % (94-98) 01/04/22 11:09 ABG Base Excess 4.0 mmol/L (-2.0-3.0) H 01/04/22 11:09 [place]by Test POSITIVE 01/04/22 11:09 O2 Delivery Device BiPAP 01/04/22 11:09 O2 Liters/Min 6.00 LPM 01/04/22 07:35 FiO2 40.00 01/04/22 11:09 EPAP 5 cmH2O 01/04/22 11:09 IPAP 14 cmH2O 01/04/22 11:09 Sodium 138 mmol/L (135-145) 01/08/22 05:13 Potassium 4.4 mmol/L (3.5-5.0) 01/08/22 05:13 Chloride 98 mmol/L (101-111) L 01/08/22 05:13 Carbon Dioxide 34 mmol/L (21-32) H 01/08/22 05:13 Anion Gap 6.0 (6-13) 01/08/22 05:13 BUN 15 mg/dL (6-20) 01/08/22 05:13 Creatinine 0.7 mg/dL (0.6-1.2) 01/08/22 05:13 Estimated GFR (MDRD) 131 (>89) 01/08/22 05:13 Glucose 95 mg/dL (70-100) 01/08/22 05:13 Calcium 9.2 mg/dL (8.5-10.3) 01/08/22 05:13 Total Bilirubin 0.9 mg/dL (0.2-1.0) 01/03/22 11:43 AST 25 IU/L (10-42) 01/03/22 11:43 ALT 30 IU/L (10-60) 01/03/22 11:43 Alkaline Phosphatase 58 IU/L (42-121) 01/03/22 11:43 B-Natriuretic Peptide 63 pg/mL (5-100) 01/03/22 11:43 Total Protein 7.4 g/dL (6.7-8.2) 01/03/22 11:43 Albumin 3.5 g/dL (3.2-5.5) 01/03/22 11:43 Globulin 3.9 g/dL (2.1-4.2) 01/03/22 11:43 Albumin/Globulin Ratio 0.9 (1.0-2.2) L 01/03/22 11:43 Lipase 22 U/L (22-51) 01/03/22 11:43 Nasal Adenovirus (PCR) NOT DETECTED 01/03/22 15:38 Nasal B. parapertussis DNA (PCR) NOT DETECTED 01/03/22 15:38 Nasal Coronavir 229E PCR NOT DETECTED 01/03/22 15:38 Nasal Coronavir HKU1 PCR NOT DETECTED 01/03/22 15:38 Nasal Coronavir NL63 PCR NOT DETECTED 01/03/22 15:38 Nasal Coronavir OC43 PCR NOT DETECTED 01/03/22 15:38 Nasal Enterovir/Rhinovir PCR NOT DETECTED 01/03/22 15:38 Nasal Influenza B PCR NOT DETECTED 01/03/22 15:38 Nasal Influenza A PCR NOT DETECTED 01/03/22 15:38 Nasal Parainfluen 1 PCR NOT DETECTED 01/03/22 15:38 Nasal Parainfluen 2 PCR NOT DETECTED 01/03/22 15:38 Nasal Parainfluen 3 PCR NOT DETECTED 01/03/22 15:38 Nasal Parainfluen 4 PCR NOT DETECTED 01/03/22 15:38 Nasal RSV (PCR) NOT DETECTED 01/03/22 15:38 Nasal B.pertussis DNA PCR NOT DETECTED 01/03/22 15:38 Nasal C.pneumoniae (PCR) NOT DETECTED 01/03/22 15:38 [place]don Human Metapneumo PCR NOT DETECTED 01/03/22 15:38 Nasal M.pneumoniae (PCR) NOT DETECTED 01/03/22 15:38 Nasal SARS-CoV-2 (PCR) NOT DETECTED 01/03/22 15:38 ABX Reporting Has patient been on IV antibiotics over the past 48 hours?: No
[2022-01-09] MEDS: FUROSEMIDE 40 MG TABLET PO SCH (08:28)
[2022-01-09] MEDS: SODIUM CHLORIDE FLUSH 0.9% 10 ML SYRINGE IVP SCH ×3 (08:28→23:13)
[2022-01-09] MEDS: ERYTHROMYCIN OPHTH OINT 1 GM TUBE LEFTEYE SCH ×2 (08:28→20:29)
[2022-01-09] MEDS: ENOXAPARIN 60 MG/0.6 ML SYRINGE SUBQ SCH ×2 (08:28→20:29)
--- NOTE | 2022-01-09 14:55 | PROVIDER PROGRESS NOTE ---
Subjective - Prog Note Date Prog Note Date: 01/09/22 Prog Note Time: 14:53 - Subjective Subjective: Yesterday's discharge was delayed because we need to get a system that will allow him to be able to plug in his CPAP at night. Social work was able to get the foundation to pay for it and we have ordered on [employer]. It arrives on January 12. Patient has no new needs. He is waiting for discharge. Current Medications - Current Medications Current Medications: Active Medications Acetaminophen (Acetaminophen 325 Mg Tablet) 650 mg PO Q4HR PRN PRN Reason: Pain 1 to 4, or Fever Enoxaparin Sodium (Enoxaparin 60 Mg/0.6 Ml Syringe) 60 mg SUBQ BID [facility] Last Admin: 01/09/22 08:28 Dose: Not Given Erythromycin (Erythromycin Ophth Oint 1 Gm Tube) 1 applic LEFTEYE BID [facility] Last Admin: 01/09/22 08:28 Dose: Not Given Furosemide (Furosemide 40 Mg Tablet) 40 mg PO DAILY [facility] Last Admin: 01/09/22 08:28 Dose: 40 mg Levalbuterol HCl (Levalbuterol 1.25 Mg/3 Ml Neb) 1.25 mg INH Q4H PRN PRN Reason: Shortness of Air/Wheezing Ondansetron HCl (Ondansetron 4 Mg/2 Ml Vial) 4 mg IVP Q6HR PRN PRN Reason: Nausea / Vomiting Oxycodone HCl (Oxycodone 5 Mg Tablet) 5 mg PO Q4HR PRN PRN Reason: Pain 5 to 7 Sodium Chloride (Sodium Chloride Flush 0.9% 10 Ml Syringe) 10 ml IVP PRN PRN PRN Reason: NEEDED PER PROVIDER ORDERS Sodium Chloride (Sodium Chloride Flush 0.9% 10 Ml Syringe) 10 ml IVP 0100,0900,1700 [facility] Last Admin: 01/09/22 08:28 Dose: Not Given Furosemide [Lasix] 20 mg PO DAILY 11/30/21 Objective - Vital Signs/Intake & Output Reviewed Vital Signs: Yes Vital Signs: Vital Signs x48h Temp Pulse BP Pulse Ox 01/09/22 09:00 36.8 C 94 146/73 H 92 Intake & Output: Intake & Output 01/06/22 01/07/22 01/08/22 01/09/22 23:59 23:59 23:59 23:59 Intake Total 5500 6250 4560 1140 Output Total 7521 98358 4131 [place] [id number] 1140 - Objective General Appearance: positive: Alert, Other (Super obese, pleasant, young male who is sitting up in his chair. Watching TV. Ate breakfast. Speech is lucid and conversational) Eyes Bilateral: positive: PERRL, EOMI ENT: positive: No signs of dehydration Neck: positive: No JVD. negative: Stiff neck Respiratory: positive: Chest non-tender, No respiratory distress. negative: Wheezes, Rales, Rhonchi Cardiovascular: positive: Regular rate & rhythm. negative: Gallop/S4, Friction rub Abdomen: positive: No organomegaly, Nml bowel sounds, No distention, Other (Because of his obesity, an large pannus, unable to assess for organomegaly) Skin: positive: Warm, Dry, Other (Moderate to severe hyperkeratosis from the knees on down encircling shins and calves. Shrinkage for edema has resolved partially. I am impressed in that all of his signs of redness, heat, cellulitis and warmth have completely gone away from his last admission. What is left with is elephantiasis) Extremities: positive: Full ROM, Pedal edema Neurologic/Psychiatric: positive: Oriented x3, CN's nml (2-12), Motor nml - Lab Results Fish Bones: 01/08/22 05:13 01/08/22 05:13 Assessment/Plan - Problem List (1) Acute respiratory failure with hypoxia and hypercapnia Impression: Continue CPAP intermittently/interchangeably with 2 L of oxygen via nasal cannula with activity. White blood cell count was 9.9 Dexamethasone discontinued January 08. Patient completed azithromycin. Rocephin discontinued. On Lasix 40 mg p.o. daily. Continue levalbuterol and budesonide. [facility] will be denied in the cost for the plug-in device for his CPAP. The [employer] for oxygen company states that there must be a physical address to deliver to and that has been identified as his parents house. Patient was not hypoxic at rest on room air. O2 sats were 94%. However with exertion on room air his O2 sats were 86%. On 2 L nasal cannula with ambulation his sats improved to 93%. I am ordering home oxygen, room air at rest, and 2 L/min with exertion to treat his acute respiratory failure, CHF, and resulting hypoxemia. (2) Obesity hypoventilation syndrome Assessment/Plan: Continue CPAP nightly (3) ALONDRA on CPAP Assessment/Plan: Continue CPAP nightly (4) Super obesity Assessment/Plan: Continue to advise weight loss. (5) Conjunctivitis Qualifiers: Conjunctivitis type: acute Laterality: left Assessment/Plan: Improving. Erythromycin ointment ordered to apply in left eye twice daily.
[2022-01-10] MEDS: FUROSEMIDE 40 MG TABLET PO SCH (08:03)
[2022-01-10] MEDS: ERYTHROMYCIN OPHTH OINT 1 GM TUBE LEFTEYE SCH ×2 (08:03→20:50)
[2022-01-10] MEDS: ENOXAPARIN 60 MG/0.6 ML SYRINGE SUBQ SCH ×2 (08:03→20:50)
[2022-01-10] MEDS: SODIUM CHLORIDE FLUSH 0.9% 10 ML SYRINGE IVP SCH ×2 (08:04→17:01)
--- NOTE | 2022-01-10 19:26 | PROVIDER PROGRESS NOTE ---
Subjective - Prog Note Date Prog Note Date: 01/10/22 Prog Note Time: 19:25 - Subjective Subjective: nothing new to report. Waiting for pumper helper for CPAP machine to arrive on 01/12 Current Medications - Current Medications Current Medications: Active Medications Acetaminophen (Acetaminophen 325 Mg Tablet) 650 mg PO Q4HR PRN PRN Reason: Pain 1 to 4, or Fever Enoxaparin Sodium (Enoxaparin 60 Mg/0.6 Ml Syringe) 60 mg SUBQ BID [facility] Last Admin: 01/10/22 08:03 Dose: Not Given Erythromycin (Erythromycin Ophth Oint 1 Gm Tube) 1 applic LEFTEYE BID [facility] Last Admin: 01/10/22 08:03 Dose: 1 applic Furosemide (Furosemide 40 Mg Tablet) 40 mg PO DAILY [facility] Last Admin: 01/10/22 08:03 Dose: 40 mg Levalbuterol HCl (Levalbuterol 1.25 Mg/3 Ml Neb) 1.25 mg INH Q4H PRN PRN Reason: Shortness of Air/Wheezing Ondansetron HCl (Ondansetron 4 Mg/2 Ml Vial) 4 mg IVP Q6HR PRN PRN Reason: Nausea / Vomiting Oxycodone HCl (Oxycodone 5 Mg Tablet) 5 mg PO Q4HR PRN PRN Reason: Pain 5 to 7 Sodium Chloride (Sodium Chloride Flush 0.9% 10 Ml Syringe) 10 ml IVP PRN PRN PRN Reason: NEEDED PER PROVIDER ORDERS Sodium Chloride (Sodium Chloride Flush 0.9% 10 Ml Syringe) 10 ml IVP 0100,0900,1700 [facility] Last Admin: 01/10/22 17:01 Dose: Not Given Furosemide [Lasix] 20 mg PO DAILY 11/30/21 Objective - Vital Signs/Intake & Output Reviewed Vital Signs: Yes Vital Signs: Vital Signs x48h Temp Pulse Resp BP Pulse Ox 01/10/22 15:56 36.6 C 101 H 18 128/56 L 95 Intake & Output: Intake & Output 01/07/22 01/08/22 01/09/22 01/10/22 23:59 23:59 23:59 23:59 Intake Total 6250 4560 2320 1914 Output Total 91124 6800 Balance -7050 -2240 2320 1914 - Lab Results Fish Bones: 01/08/22 05:13 01/08/22 05:13 Assessment/Plan - Problem List (1) Acute respiratory failure with hypoxia and hypercapnia Impression: No change in status. This is a nonbillable encounter Continue CPAP intermittently/interchangeably with 2 L of oxygen via nasal cannula with activity. White blood cell count was 9.9 Dexamethasone discontinued January 08. Patient completed azithromycin. Rocephin discontinued. On Lasix 40 mg p.o. daily. Continue levalbuterol and budesonide. [facility] will be denied in the cost for the plug-in device for his CPAP. The [employer] for oxygen company states that there must be a physical address to deliver to and that has been identified as his parents house. Patient was not hypoxic at rest on room air. O2 sats were 94%. However with exertion on room air his O2 sats were 86%. On 2 L nasal cannula with ambulation his sats improved to 93%. I am ordering home oxygen, room air at rest, and 2 L/min with exertion to treat his acute respiratory failure, CHF, and resulting hypoxemia. (2) Obesity hypoventilation syndrome Assessment/Plan: Continue CPAP nightly (3) ALONDRA on CPAP Assessment/Plan: Continue CPAP nightly (4) Super obesity Assessment/Plan: Continue to advise weight loss. (5) Conjunctivitis Qualifiers: Conjunctivitis type: acute Laterality: left Assessment/Plan: Improving. Erythromycin ointment ordered to apply in left eye twice daily.
[2022-01-11] MEDS: SODIUM CHLORIDE FLUSH 0.9% 10 ML SYRINGE IVP SCH ×3 (00:12→10:08)
[2022-01-11] MEDS: ENOXAPARIN 60 MG/0.6 ML SYRINGE SUBQ SCH ×2 (07:44→21:08)
[2022-01-11] MEDS: FUROSEMIDE 40 MG TABLET PO SCH (07:45)
[2022-01-11] MEDS: ERYTHROMYCIN OPHTH OINT 1 GM TUBE LEFTEYE SCH ×2 (07:47→21:08)
--- NOTE | 2022-01-11 14:20 | PROVIDER PROGRESS NOTE ---
Subjective - Prog Note Date Prog Note Date: 01/11/22 Prog Note Time: 14:18 - Subjective Pt reports feeling: No change Subjective: Ambulating in room. Eating 100% of his diet. O2 is being maintained. Social work is starting the process of getting disability on him. Current Medications - Current Medications Current Medications: Active Medications Acetaminophen (Acetaminophen 325 Mg Tablet) 650 mg PO Q4HR PRN PRN Reason: Pain 1 to 4, or Fever Enoxaparin Sodium (Enoxaparin 60 Mg/0.6 Ml Syringe) 60 mg SUBQ BID [facility] Last Admin: 01/11/22 07:44 Dose: Not Given Erythromycin (Erythromycin Ophth Oint 1 Gm Tube) 1 applic LEFTEYE BID [facility] Last Admin: 01/11/22 07:47 Dose: 1 applic Furosemide (Furosemide 40 Mg Tablet) 40 mg PO DAILY [facility] Last Admin: 01/11/22 07:45 Dose: 40 mg Levalbuterol HCl (Levalbuterol 1.25 Mg/3 Ml Neb) 1.25 mg INH Q4H PRN PRN Reason: Shortness of Air/Wheezing Ondansetron HCl (Ondansetron 4 Mg/2 Ml Vial) 4 mg IVP Q6HR PRN PRN Reason: Nausea / Vomiting Oxycodone HCl (Oxycodone 5 Mg Tablet) 5 mg PO Q4HR PRN PRN Reason: Pain 5 to 7 Sodium Chloride (Sodium Chloride Flush 0.9% 10 Ml Syringe) 10 ml IVP PRN PRN PRN Reason: NEEDED PER PROVIDER ORDERS Sodium Chloride (Sodium Chloride Flush 0.9% 10 Ml Syringe) 10 ml IVP 0100,0900,1700 [facility] Last Admin: 01/11/22 10:08 Dose: Not Given Furosemide [Lasix] 20 mg PO DAILY 11/30/21 Objective - Vital Signs/Intake & Output Reviewed Vital Signs: Yes Vital Signs: Vital Signs x48h Temp Pulse Resp BP Pulse Ox 01/11/22 07:38 36.7 C 72 16 134/57 H 94 Intake & Output: Intake & Output 01/08/22 01/09/22 01/10/22 01/11/22 23:59 23:59 23:59 23:59 Intake Total 4560 2320 2690 1380 Output Total 6800 Balance -2240 2320 2690 1380 - Objective General Appearance: positive: Alert, Other (Super obese young white male with a BMI of 87, 308 kg. Alert, oriented, comfortable.) Eyes Bilateral: positive: PERRL, EOMI Neck: positive: No JVD. negative: Stiff neck Respiratory: positive: No respiratory distress. negative: Wheezes, Rales, Rhonchi Cardiovascular: positive: Regular rate & rhythm. negative: Gallop/S4 Abdomen: positive: Other (Hugely obese pannus. Unable to assess for organomegaly. Normal bowel sounds, and regular bowel movements) Skin: positive: Other (Hyperkeratotic and thickened and scaling lower extremities from chronic venous insufficiency) Extremities: positive: Full ROM, Pedal edema, Other (Last visit/admission he had read hot skin with cellulitis. That is completely resolved to grayish skin tone.) Neurologic/Psychiatric: positive: Oriented x3, CN's nml (2-12), Motor nml - Lab Results Fish Bones: 01/08/22 05:13 01/08/22 05:13 Assessment/Plan - Problem List (1) Acute respiratory failure with hypoxia and hypercapnia Impression: No change in status. This is a nonbillable encounter Continue CPAP intermittently/interchangeably with 2 L of oxygen via nasal cannula with activity. White blood cell count was 9.9 Dexamethasone discontinued January 08. Patient completed azithromycin. Rocephin discontinued. On Lasix 40 mg p.o. daily. Continue levalbuterol and budesonide. [facility] will be denied in the cost for the plug-in device for his CPAP. The [employer] for oxygen company states that there must be a physical address to deliver to and that has been identified as his parents house.Delivery is going to be January 12 which is tomorrow. Patient was not hypoxic at rest on room air. O2 sats were 94%. However with exertion on room air his O2 sats were 86%. On 2 L nasal cannula with ambulation his sats improved to 93%. I am ordering home oxygen, room air at rest, and 2 L/min with exertion to treat his acute respiratory failure, CHF, and resulting hypoxemia. (2) Obesity hypoventilation syndrome Assessment/Plan: Continue CPAP nightly (3) ALONDRA on CPAP Assessment/Plan: Continue CPAP nightly (4) Super obesity Assessment/Plan: Continue to advise weight loss. (5) Conjunctivitis Qualifiers: Conjunctivitis type: acute Laterality: left Assessment/Plan: Improving. Erythromycin ointment ordered to apply in left eye twice daily.
[2022-01-12] MEDS: SODIUM CHLORIDE FLUSH 0.9% 10 ML SYRINGE IVP SCH ×3 (01:49→16:32)
[2022-01-12] MEDS: FUROSEMIDE 40 MG TABLET PO SCH (09:00)
[2022-01-12] MEDS: ERYTHROMYCIN OPHTH OINT 1 GM TUBE LEFTEYE SCH ×2 (09:00→19:38)
[2022-01-12] MEDS: ENOXAPARIN 60 MG/0.6 ML SYRINGE SUBQ SCH ×2 (10:25→19:38)
[2022-01-13] MEDS: SODIUM CHLORIDE FLUSH 0.9% 10 ML SYRINGE IVP SCH ×3 (07:25→16:49)
[2022-01-13] MEDS: FUROSEMIDE 40 MG TABLET PO SCH (08:25)
[2022-01-13] MEDS: ERYTHROMYCIN OPHTH OINT 1 GM TUBE LEFTEYE SCH ×2 (08:25→20:28)
[2022-01-13] MEDS: ENOXAPARIN 60 MG/0.6 ML SYRINGE SUBQ SCH ×2 (08:26→20:17)
--- NOTE | 2022-01-13 12:03 | PROVIDER PROGRESS NOTE ---
Subjective - Prog Note Date Prog Note Date: 01/12/22 Prog Note Time: 09:00 Objective - Vital Signs/Intake & Output Reviewed Vital Signs: Yes Vital Signs: Vital Signs x48h Temp Pulse Resp BP Pulse Ox 01/13/22 07:27 36.5 C 89 20 134/74 H 95 Intake & Output: Intake & Output 01/10/22 01/11/22 01/12/22 01/13/22 23:59 23:59 23:59 23:59 Intake Total 2690 4590 4600 2060 Balance 2690 4590 4600 2059 - Objective General Appearance: positive: No acute distress, Alert, Other (Super obese young white male, comfortable in his room sitting upright in chair) ENT: positive: No signs of dehydration Respiratory: positive: No respiratory distress. negative: Wheezes, Rales, Rhonchi Cardiovascular: positive: Regular rate & rhythm Abdomen: positive: Nml bowel sounds, No distention Skin: positive: Other (Chronic hyperkeratotic rubbery changes of his skin from chronic venous stasis. Grayish skin discoloration. No redness or heat at all) Extremities: positive: Full ROM, Pedal edema Neurologic/Psychiatric: positive: Oriented x3, CN's nml (2-12), Motor nml - Lab Results Fish Bones: 01/08/22 05:13 01/08/22 05:13 Assessment/Plan - Problem List (1) Chronic respiratory failure with hypoxia Impression: this is a gentleman who was brought in with acute respiratory failure with hypoxemia and hypercapnia due to his obesity hypoventilation syndrome, and obstructive sleep apnea. This was a bounce back admission. He had already been in the hospital discharged and came back. He is responded to our BiPAP and treatment. However he needs his home CPAP machine. He is homeless lives in a car. The [facility] has bought the plug-in device for his CPAP in his car. We are awaiting delivery of this device to his parents home in [place] and they will bring it in. (2) Chronic respiratory failure due to obstructive sleep apnea Impression: Severely morbidly obese. Homeless. Trying to work with his primary care provider for weight loss, exercise and appropriate use of equipment.
--- NOTE | 2022-01-13 12:06 | PROVIDER PROGRESS NOTE ---
Subjective - Prog Note Date Prog Note Date: 01/13/22 Prog Note Time: 12:05 - Subjective Subjective: Nothing new to report. We are just awaiting that battery charger tester and adapter for his CPAP machine to be used in his car. Current Medications - Current Medications Current Medications: Active Medications Acetaminophen (Acetaminophen 325 Mg Tablet) 650 mg PO Q4HR PRN PRN Reason: Pain 1 to 4, or Fever Enoxaparin Sodium (Enoxaparin 60 Mg/0.6 Ml Syringe) 60 mg SUBQ BID [facility] Last Admin: 01/13/22 08:26 Dose: Not Given Erythromycin (Erythromycin Ophth Oint 1 Gm Tube) 1 applic LEFTEYE BID [facility] Last Admin: 01/13/22 08:25 Dose: 1 applic Furosemide (Furosemide 40 Mg Tablet) 40 mg PO DAILY [facility] Last Admin: 01/13/22 08:25 Dose: 40 mg Levalbuterol HCl (Levalbuterol 1.25 Mg/3 Ml Neb) 1.25 mg INH Q4H PRN PRN Reason: Shortness of Air/Wheezing Ondansetron HCl (Ondansetron 4 Mg/2 Ml Vial) 4 mg IVP Q6HR PRN PRN Reason: Nausea / Vomiting Oxycodone HCl (Oxycodone 5 Mg Tablet) 5 mg PO Q4HR PRN PRN Reason: Pain 5 to 7 Sodium Chloride (Sodium Chloride Flush 0.9% 10 Ml Syringe) 10 ml IVP PRN PRN PRN Reason: NEEDED PER PROVIDER ORDERS Sodium Chloride (Sodium Chloride Flush 0.9% 10 Ml Syringe) 10 ml IVP 0100,0900,1700 [facility] Last Admin: 01/13/22 08:25 Dose: Not Given Furosemide [Lasix] 20 mg PO DAILY 11/30/21 Objective - Vital Signs/Intake & Output Reviewed Vital Signs: Yes Vital Signs: Vital Signs x48h Temp Pulse Resp BP Pulse Ox 01/13/22 07:27 36.5 C 89 20 134/74 H 95 Intake & Output: Intake & Output 01/10/22 01/11/22 01/12/22 01/13/22 23:59 23:59 23:59 23:59 Intake Total 2690 4590 4600 2060 Balance 2690 4590 4600 2060 - Objective General Appearance: positive: Alert, Other (Super obese young male, comfortable in his room, talkative, no respiratory distress) Eyes Bilateral: positive: PERRL, EOMI ENT: positive: No signs of dehydration Neck: negative: Stiff neck Respiratory: positive: No respiratory distress. negative: Wheezes, Rales, Rhonchi Cardiovascular: positive: Regular rate & rhythm Abdomen: positive: Nml bowel sounds, No distention Skin: positive: Warm, Dry Extremities: positive: Pedal edema, Other (Severe hyperkeratotic changes of his lower extremities from chronic venous stasis. Flaking, rubbery skin. Starts below his knees down to the tops of his feet. There is no redness, skin breakdown) Neurologic/Psychiatric: positive: Oriented x3, CN's nml (2-12), Motor nml - Lab Results Fish Bones: 01/08/22 05:13 01/08/22 05:13 Assessment/Plan - Problem List (1) Chronic respiratory failure with hypoxia Impression: Stable patient. This is yet another avoidable day as we await the adapter/battery charger tester for his car
[2022-01-14] MEDS: SODIUM CHLORIDE FLUSH 0.9% 10 ML SYRINGE IVP SCH ×4 (01:07→23:19)
[2022-01-14] MEDS: ENOXAPARIN 60 MG/0.6 ML SYRINGE SUBQ SCH ×2 (09:27→20:00)
[2022-01-14] MEDS: ERYTHROMYCIN OPHTH OINT 1 GM TUBE LEFTEYE SCH ×2 (09:27→20:00)
[2022-01-14] MEDS: FUROSEMIDE 40 MG TABLET PO SCH (09:27)
[2022-01-15] MEDS: FUROSEMIDE 40 MG TABLET PO SCH (09:26)
[2022-01-15] MEDS: ENOXAPARIN 60 MG/0.6 ML SYRINGE SUBQ SCH ×2 (09:26→21:53)
[2022-01-15] MEDS: SODIUM CHLORIDE FLUSH 0.9% 10 ML SYRINGE IVP SCH ×2 (09:27→21:53)
[2022-01-15] MEDS: ERYTHROMYCIN OPHTH OINT 1 GM TUBE LEFTEYE SCH ×2 (09:27→21:53)
--- NOTE | 2022-01-15 11:32 | PROVIDER PROGRESS NOTE ---
Subjective - Prog Note Date Prog Note Date: 01/14/22 Prog Note Time: 09:00 - Subjective Subjective: no new complaints, just waiting Current Medications - Current Medications Current Medications: Active Medications Acetaminophen (Acetaminophen 325 Mg Tablet) 650 mg PO Q4HR PRN PRN Reason: Pain 1 to 4, or Fever Enoxaparin Sodium (Enoxaparin 60 Mg/0.6 Ml Syringe) 60 mg SUBQ BID [facility] Last Admin: 01/15/22 09:26 Dose: Not Given Erythromycin (Erythromycin Ophth Oint 1 Gm Tube) 1 applic LEFTEYE BID [facility] Last Admin: 01/15/22 09:27 Dose: 1 applic Furosemide (Furosemide 40 Mg Tablet) 40 mg PO DAILY [facility] Last Admin: 01/15/22 09:26 Dose: 40 mg Levalbuterol HCl (Levalbuterol 1.25 Mg/3 Ml Neb) 1.25 mg INH Q4H PRN PRN Reason: Shortness of Air/Wheezing Ondansetron HCl (Ondansetron 4 Mg/2 Ml Vial) 4 mg IVP Q6HR PRN PRN Reason: Nausea / Vomiting Oxycodone HCl (Oxycodone 5 Mg Tablet) 5 mg PO Q4HR PRN PRN Reason: Pain 5 to 7 Sodium Chloride (Sodium Chloride Flush 0.9% 10 Ml Syringe) 10 ml IVP PRN PRN PRN Reason: NEEDED PER PROVIDER ORDERS Sodium Chloride (Sodium Chloride Flush 0.9% 10 Ml Syringe) 10 ml IVP 0100,0900,1700 [facility] Last Admin: 01/15/22 09:27 Dose: Not Given Furosemide [Lasix] 20 mg PO DAILY 11/30/21 Objective - Vital Signs/Intake & Output Reviewed Vital Signs: Yes Vital Signs: Vital Signs x48h Temp Pulse Resp BP Pulse Ox 01/15/22 07:16 36.5 C 87 19 147/87 H 98 Intake & Output: Intake & Output 01/12/22 01/13/22 01/14/22 01/15/22 23:59 23:59 23:59 23:59 Intake Total 4600 5000 5050 3050 Balance 4600 5000 5050 3050 - Objective General Appearance: positive: Alert, Other (super obese white male, ambulating in room, bathroom on his own. eating food 75-100%) Eyes Bilateral: positive: PERRL - Lab Results Fish Bones: 01/08/22 05:13 01/08/22 05:13 Assessment/Plan - Problem List (1) Chronic respiratory failure with hypoxia Impression: Stable patient. This is yet another avoidable day as we await the adapter/salon assistant for his car
--- NOTE | 2022-01-15 11:34 | PROVIDER PROGRESS NOTE ---
Subjective - Prog Note Date Prog Note Date: 01/15/22 Prog Note Time: 11:32 - Subjective Subjective: no changes or complsints Current Medications - Current Medications Current Medications: Active Medications Acetaminophen (Acetaminophen 325 Mg Tablet) 650 mg PO Q4HR PRN PRN Reason: Pain 1 to 4, or Fever Enoxaparin Sodium (Enoxaparin 60 Mg/0.6 Ml Syringe) 60 mg SUBQ BID [facility] Last Admin: 01/15/22 09:26 Dose: Not Given Erythromycin (Erythromycin Ophth Oint 1 Gm Tube) 1 applic LEFTEYE BID [facility] Last Admin: 01/15/22 09:27 Dose: 1 applic Furosemide (Furosemide 40 Mg Tablet) 40 mg PO DAILY [facility] Last Admin: 01/15/22 09:26 Dose: 40 mg Levalbuterol HCl (Levalbuterol 1.25 Mg/3 Ml Neb) 1.25 mg INH Q4H PRN PRN Reason: Shortness of Air/Wheezing Ondansetron HCl (Ondansetron 4 Mg/2 Ml Vial) 4 mg IVP Q6HR PRN PRN Reason: Nausea / Vomiting Oxycodone HCl (Oxycodone 5 Mg Tablet) 5 mg PO Q4HR PRN PRN Reason: Pain 5 to 7 Sodium Chloride (Sodium Chloride Flush 0.9% 10 Ml Syringe) 10 ml IVP PRN PRN PRN Reason: NEEDED PER PROVIDER ORDERS Sodium Chloride (Sodium Chloride Flush 0.9% 10 Ml Syringe) 10 ml IVP 0100,0900,1700 [facility] Last Admin: 01/15/22 09:27 Dose: Not Given Furosemide [Lasix] 20 mg PO DAILY 11/30/21 Objective - Vital Signs/Intake & Output Reviewed Vital Signs: Yes Vital Signs: Vital Signs x48h Temp Pulse Resp BP Pulse Ox 01/15/22 07:16 36.5 C 87 19 147/87 H 98 Intake & Output: Intake & Output 01/12/22 01/13/22 01/14/22 01/15/22 23:59 23:59 23:59 23:59 Intake Total 4600 5000 5050 3050 Balance 4600 5000 5050 3050 - Objective General Appearance: positive: No acute distress, Alert, Other (pleasant super obese white male, ambulating in room) Eyes Bilateral: positive: PERRL, EOMI Neck: positive: No JVD Respiratory: positive: No respiratory distress. negative: Wheezes, Rales, Rhonchi Cardiovascular: positive: Regular rate & rhythm Abdomen: positive: Nml bowel sounds, No distention. negative: Guarding, Rebound Skin: positive: Warm, Dry, Other (hyperkeratotic rubbery skin of legs, no open wounds) Extremities: positive: Full ROM, Pedal edema (large lymphedematous legs) Neurologic/Psychiatric: positive: Oriented x3, CN's nml (2-12), Motor nml - Lab Results Fish Bones: 01/08/22 05:13 01/08/22 05:13 Assessment/Plan - Problem List (1) Chronic respiratory failure with hypoxia Impression: Stable patient. This is yet another avoidable day as we await the adapter/product delivery specialist for his car
[2022-01-16] MEDS: SODIUM CHLORIDE FLUSH 0.9% 10 ML SYRINGE IVP SCH ×2 (01:34→09:03)
[2022-01-16] MEDS: ENOXAPARIN 60 MG/0.6 ML SYRINGE SUBQ SCH (08:30)
[2022-01-16] MEDS: ERYTHROMYCIN OPHTH OINT 1 GM TUBE LEFTEYE SCH (08:31)
[2022-01-16] MEDS: FUROSEMIDE 40 MG TABLET PO SCH (08:31)
--- NOTE | 2022-01-16 16:04 | Discharge Plan ---
Discharge Plan Problem Reviewed?: Yes Disposition: Home, Self Care Condition: Stable Prescriptions: Furosemide [Lasix] 40 mg PO DAILY #30 tablet Diet: Low Sodium Activity Restrictions: Activity as Tolerated Shower Restrictions: No Weight Bearing: Full Weight Instruction Topics: CPAP Health Concerns: You were hospitalized because of being over somnolent related to carbon dioxide retention related to sleep apnea. Your oxygen level was low and you needed supplemental oxygen for many days. You are being discharged and advised to use the portable recharge her to plug in your CPAP device and use it faithfully. Plan of Treatment: As above and continue Lasix 40 mg daily dose. This medication was electronically prescribed to your [facility] pharmacy in [place]. Care Goals: Improvement in symptoms and stabilization are the goals. Assessment: Patient understands and is agreeable with the plan. Additional Instructions or Follow Up instructions: Keep this Fri appointment with your Primary Care Provider at [facility] Smoking: If you smoke, Please STOP! Call for help.
--- NOTE | 2022-01-16 16:10 | DISCHARGE SUMMARY ---
Discharge Summary Admit Date: 01/03/22 Discharge Date: 01/16/22 Discharging Provider: Dr Susanne Pulido Primary Care Provider: Dr Pretty Lemus Code Status: Attempt Resuscitation Condition at Discharge: Stable Discharge Disposition: 01 Home, Self Care - [facility] History of Present Illness: From the admission H&P of Dr Louis Myrick: Patient is a 31-year-old morbidly obese male who weighs almost 700lbs, has a history of asthma, and lives in his car, who presented to the ED with dyspnea. Symptoms have been going on for about 4 days. They started after he had gone to a show out of town, and to get to the venue he had to walk about 2 miles. After the exertion of that day he became dyspneic. This has progressed over the ensuing days. He went to the walk-in clinic at [facility] where his oxygen saturation at rest on room air was noted to be in the 80s. His oxygen saturation with exertion was found to be in the 70s. He was placed on 6 L of oxygen per nasal cannula which helped maintain his oxygen saturation in the mid 90s while he was transported from the clinic to the emergency department. In the ED he was noted to have an oxygen saturation of 89% on room air. He was mildly wheezing and had productive cough. He denied chest pain, abdominal pain, nausea, vomiting, fever or chills. Work-up in the ED included an ABG which showed a pH of 7.30 and PCO2 of 72. His PO2 at the time was 131 with HCO3 of 35.1. He had a white blood cell count of 11.5. Chest x-ray showed mildly prominent interstitium which could represent edema or atypical infection. Mild cardiomegaly was noted as before. He was presented for admission for continued management. - HOSPITAL COURSE Hospital Course: (1) Acute on chronic respiratory failure with hypoxia and hypercapnia He was put on Dexamethasone, completed a course of Azithromycin and Rocephin plus used prn Levalbuterol and Budesonide. He was also managed by being put on BIPAP, then eventually was put on his own CPAP unit but he needed 2 L of oxygen bled in. A reason for delay in his discharge was his Homeless status and no place to plug in his CPAP machine and no place to deliver oxygen to a fixed residence address, by a Home Oxygen company . Slowly he was able to be weaned down from daytime oxygen at rest and also did not need CPAP during the day, then needed no oxygen via nasal cannula during the day, and finally no oxygen with activity and none bled into the CPAP at night. He remained on his Lasix 40 mg p.o. daily. (2) Obesity hypoventilation syndrome Continued on CPAP nightly. One reason for delay in discharge was his Homeless status and no place to plug in his CPAP machine. Therefore a portable recharging unit was needed and [facility] purchased this for him and we awaited its delivery by [employer] (for many days), before he could be safely discharged. (3) ALONDRA on CPAP Continue CPAP nightly (4) Super obesity His BMI is 87. Continue to advise weight loss. (5) Conjunctivitis Improved/resolved when he was prescribed Erythromycin ointment ordered to apply in left eye twice daily. - ALLERGIES Allergies/Adverse Reactions: Allergies Allergy/AdvReac Type Severity Reaction Status Date / Time No Known Drug Allergies Allergy Verified 01/03/22 11:21 - MEDICATIONS Home Medications: Ambulatory Orders Medication Instructions Recorded Confirmed Furosemide [Lasix] 40 mg PO DAILY #30 tablet 01/16/22 - PHYSICAL EXAM AT DISCHARGE General Appearance: positive: No acute distress, Alert, Other (Morbidly obese, male pattern baldness) Eyes Bilateral: positive: Normal inspection, EOMI ENT: positive: ENT inspection nml Neck: positive: Nml inspection Respiratory: positive: No respiratory distress, Breath sounds nml Cardiovascular: positive: Regular rate & rhythm, No murmur (distant heart sounds due to morbid obesity) Abdomen: positive: Other (Obese with a pannus) Skin: positive: Warm, Dry Extremities: positive: Non-tender, Other (1+ edema to above knees) Neurologic/Psychiatric: positive: Oriented x3 (Non-focal) - LABS Result Diagrams: 01/08/22 05:13 01/08/22 05:13 - DIAGNOSTIC IMAGING Diagnostic Imaging Results: Final report reviewed - TIME SPENT Time Spent in Discharge (Minutes): 29
[2022-01-16 16:21] VITALS: BP 134/80
== END 2022-01-16 17:29 | disposition home or self-care (01) | DRG 189 ==
LOC: EDUNIT# → ED 10:59 → MS2 15:01 → OBSVTOIN 01-04 08:54
PROVIDERS: ADMIT Internal Medicine; ATTEND Internal Medicine
DX: J96.22 Acute and chronic respiratory failure with hypercapnia (principal); E66.2 Morbid (severe) obesity with alveolar hypoventilation; Z68.45 Body mass index [BMI] 70 or greater, adult; J45.901 Unspecified asthma with (acute) exacerbation; J96.21 Acute and chronic respiratory failure with hypoxia; H10.9 Unspecified conjunctivitis; J45.909 Unspecified asthma, uncomplicated; I10 Essential (primary) hypertension; F32.A Depression, unspecified; Z59.02 Unsheltered homelessness; I87.8 Other specified disorders of veins; Z20.822 Contact with and (suspected) exposure to COVID-19
CPT/HCPCS: 36415; 36600; 80048; 80053; 82803; 83690; 83880; 85025; 87633; 93005; 94640; 94660; 94664; 94761; 96365; 96367; 96372; 96375; 96376; 99284; 99285; A9270; G0378; J1650; J3490; J7626

== ENCOUNTER 2022-01-19 10:07 | Outpatient (CLI) | payer MEDICAID ==
[2022-01-19 12:28] LABS: BASOPHILS # (AUTO) 0.1 10^3/uL (0.0-0.1); BASOPHILS % (AUTO) 0.8 %; EOSINOPHILS # (AUTO) 0.2 10^3/uL (0.0-0.7); EOSINOPHILS % (AUTO) 2.6 %; HCT - HEMATOCRIT 42.5 % (42.0-52.0); HGB - HEMOGLOBIN 13.1 g/dL (14.0-18.0); LYMPHOCYTES # (AUTO) 1.9 10^3/uL (1.5-3.5); LYMPHOCYTES % (AUTO) 21.6 %; MEAN CORPUSCULAR HEMOGLOBIN 27.1 pg (27.0-31.0); MEAN CORPUSCULAR HGB CONC 30.8 g/dL (32.0-36.0); MEAN CORPUSCULAR VOLUME 87.8 fL (80.0-94.0); MEAN PLATELET VOLUME 10.6 fL (7.4-11.4); MONOCYTES # (AUTO) 0.8 10^3/uL (0.0-1.0); MONOCYTES % (AUTO) 9.3 %; NEUTROPHILS # (AUTO) 5.7 10^3/uL (1.5-6.6); NEUTROPHILS % (AUTO) 64.4 %; PLT - PLATELET COUNT 226 10^3/uL (130-450); RED BLOOD COUNT 4.84 10^6/uL (4.70-6.10); RED CELL DISTRIBUTION WIDTH 16.6 % (12.0-15.0); WHITE BLOOD COUNT 8.9 x10^3/uL (4.8-10.8)
[2022-01-19 12:46] LABS: ALBUMIN 4.2 g/dL (3.2-5.5); BILIRUBIN,TOTAL 0.8 mg/dL (0.2-1.0); CALCIUM 9.8 mg/dL (8.5-10.3); CREATININE 0.7 mg/dL (0.6-1.2); POTASSIUM 4.1 mmol/L (3.5-5.0); TOTAL PROTEIN 8.3 g/dL (6.7-8.2)
== END 2022-01-19 10:08 | disposition home or self-care (01) ==
LOC: LAB.N 10:07
PROVIDERS: ATTEND Nurse Practitioner
DX: J18.9 Pneumonia, unspecified organism (principal); Z51.81 Encounter for therapeutic drug level monitoring; R09.02 Hypoxemia
CPT/HCPCS: 36415; 80053; 85025

== ENCOUNTER 2022-01-25 10:24 | Outpatient (CLI) | payer MEDICAID | END 2022-01-25 10:25 | disposition home or self-care (01) | LOC: SC 10:24 | PROVIDERS: ATTEND Nurse Practitioner Family | DX: Z53.9 Procedure and treatment not carried out, unspecified reason (principal) ==

== ENCOUNTER 2022-01-31 14:29 | Outpatient (CLI) | payer MEDICAID ==
[2022-01-31 15:36] VITALS: BP 134/82
--- NOTE | 2022-01-31 15:36 | SLEEP CARE CONSULTATION ---
Information from patient questionnaire entered by Ashley Correa. I have reviewed and concur with the information entered by Ashley Correa. This document represents the service I personally performed and the decisions made by me, Pretty Lemus ARNP. History of Present Illness Service Date and Time: 01/31/2022 1429 Previous diagnosis: Extremely Severe, Obstructive Sleep Apnea-Hypopnea Syndrome AHI: 109.7 Reason for follow up: annual (LAST SEEN 05/2020) Equipment type: CPAP (DREAMSTATION) Equipment obtained from: Other (ordering from [employer]) Mask style: Nasal (over the nose) Backup mask available: Yes (old mask) Last cushion change: 4-5 months Prior sleep studies: No Year and Where: 2019 [facility] Type of Sleep Study: Home sleep study Sleep Study - Results Type of Sleep Study: Home sleep study Prior sleep studies: No Year and Where: 2019 [facility] CPAP Compliance Data - Data Reviewed with Patient Average duration of nightly device use: 7 hours, 28 minutes Compliance rate %: 83.3 (30 days used; 12/30/21-01/28/22) Current pressure setting (cmH2O): 14-16 Average residual AHI: 7.7 Average large leak: 3 mins 58 secs Compliance data discussion: Patient states he uses his CPAP every night that he can plug in. Patient states he is homeless. He is also working and trying to improve his circumstances. He was recently at the hospital and they got him a battery backup so that he can use it when he does not get to the long-term in time to sleep in the building and has to sleep in his car. There are some gaps in his data over the last 6 months. He states he does not know why there are so many large gaps because he uses his CPAP every night. Subjective Missed days of use due to: reports: illness (in hospital) Patient concerns: reports: air blowing in eyes, other (headaches, 1 every 3-4 weeks). denies: aerophagia, mask discomfort, mask leak noise, condensation in mask/hose, nasal congestion, dry mouth, nose, throat, epistaxis Observed to snore while using device: No Current pressure setting perceived as: too low On therapy, patient: reports: sleeping better, awakening more refreshed, being more awake and alert during the day, more rested overall. denies: drowsiness while driving Initial [place] Sleepiness Scale score: 23 (in 2019) Current [place] Sleepiness Scale score: 12 (01/31/22) Allergies and Home Medications Drug allergies reviewed: Yes (NKDA) Home medication list reviewed: Yes (Furosemide; potassium) Allergy and home medication list: Allergies No Known Drug Allergies Allergy (Verified 01/03/22 11:21) Review of Systems Review of systems same as previous: No (pneumonia, in hospital December 2021) Physical Exam Vital signs obtained and entered by: BHARATH GOLDEN Blood Pressure: 134/82 (left wrist ) Cuff size: wrist Heart Rate: 100 O2 Saturation: 94 Height: 6 ft 2 in Weight: 566 lb (previous weight stated) Body Mass Index: 72.6 BMI Classification: Morbidly Obese Impression and Plan 1. Obstructive Sleep Apnea-Hypopnea Syndrome, extremely severe, with poor treatment compliance and fair apnea control. On CPAP therapy, the patient has better sleep quality and is more rested overall. Patient feels that the pressure is too low. His AHI is slightly elevated at 7.7 in the last 30 days. I will adjust his pressure to 15-18 cm H2O for patient comfort and to reduce residual AHI. Patient will let me know if the pressure change is uncomfortable and call for further adjustments as needed. Patient states he cannot hardly sleep without his CPAP. He had a falling out with [employer] over his recalled device. They wanted him to send the machine to them and they would get him a new one and send it to him. He states he did not want to go without his CPAP for that long. He has been buying his own supplies from [employer]. I will get him set up with a new DME supplier. He is compliant with his CPAP use. We will update his supplies as well. Patient's apnea severity and rationale for treatment to reduce apnea, improve sleep quality and reduce cardiovascular and cerebrovascular events was reviewed. I also reviewed the benefit of consistent device use of CPAP for depression/anxiety. 2. Obesity, unspecified. Currently patients BMI is 72.6. Obesity increases the risk of apnea, CPAP pressure requirements and overall health risks especially cardiovascular and diabetes. Thus patient is advised to continue to try to lose weight. Weight loss can be done with reducing portion size, reducing refined foods and balancing content with vegetables, fruit and whole grain foods. In addition, patient encouraged to get regular exercise. * Change auto CPAP pressure to 15-18 cmH2O * Transfer DME * Update supplies * Notify me if snoring with mask or feeling that the pressure is too much or too little * Attempt to lose weight * Call this office if any problems using CPAP * Return for follow up in 1 year, or sooner if concerns arise Counseling Topics: Spare mask, Weight loss health impact Visit Type: In Office Time Spent with Patient (minutes): 23 Provider Statement: I spent 100% of the Face to Face Visit with the patient with greater than 50% spent counseling the patient and coordination of care.
== END 2022-01-31 14:30 | disposition home or self-care (01) ==
LOC: SC 14:29
PROVIDERS: ATTEND Nurse Practitioner Family
DX: G47.33 Obstructive sleep apnea (adult) (pediatric) (principal); E66.01 Morbid (severe) obesity due to excess calories; Z68.45 Body mass index [BMI] 70 or greater, adult; Z59.01 Sheltered homelessness
CPT/HCPCS: 99212; 99213

== ENCOUNTER 2022-04-19 09:58 | Outpatient (CLI) | payer MEDICAID ==
[2022-04-19 12:47] LABS: THYROID STIMULATING HORMONE 3.82 uIU/mL (0.34-5.60)
[2022-04-19 12:50] LABS: FREE T4 (FREE THYROXINE) 0.84 ng/dL (0.58-1.64)
[2022-04-19 13:02] LABS: ESTIMATED AVERAGE GLUCOSE 111 mg/dL (70-100); HEMOGLOBIN A1c% 5.5 % (4.27-6.07)
== END 2022-04-19 09:59 | disposition home or self-care (01) ==
LOC: LAB.N 09:58
PROVIDERS: ATTEND Nurse Practitioner
DX: E66.01 Morbid (severe) obesity due to excess calories (principal)
CPT/HCPCS: 36415; 83036; 84439; 84443

== ENCOUNTER 2022-11-09 11:24 | Outpatient (CLI) | payer MEDICAID ==
--- NOTE | 2022-11-09 11:48 | Sleep Patient Instructions ---
Sleep Center Visit Summary - Patient Visit Information Reason for Visit: Annual visit for CPAP therapy - Patient Instructions Additional Instructions: You were here for follow up of CPAP therapy. You will be continued on CPAP therapy with pressure at 15-18 cmH2O. A transfer to CPAP supplier is in process and they should call when they have the new order for supplies prescription. You should follow up with sleep care in 12 months. You may contact us sooner for any questions or concerns. - Clinic Information Contact: [facility] [address] [place] [address] [email or web address] T: [phone]
--- NOTE | 2022-11-09 11:52 | SLEEP CARE CONSULTATION ---
Information from patient questionnaire entered by Joe Pratt. I have reviewed and concur with the information entered by Joe Pratt. This document represents the service I personally performed and the decisions made by , Pretty Lemus ARNP. History of Present Illness Service Date and Time: 11/09/2022 1124 Previous diagnosis: Extremely Severe, Obstructive Sleep Apnea-Hypopnea Syndrome AHI: 109.7 (in 2019) Reason for follow up: annual Equipment type: CPAP (RESMED 11, s/u 05/2022) Equipment obtained from: Other (ordering from [employer]) Mask style: Full face Backup mask available: No (needs more supplies) Prior sleep studies: No Year and Where: 2019 [facility] Type of Sleep Study: Home sleep study HPI additional information: BRETN ESCOTO was diagnosed to have extremely severe, AHI 109.7, obstructive sleep apnea-hypopnea syndrome and returned today for CPAP therapy annual follow- up. Sleep Study - Results Type of Sleep Study: Home sleep study Prior sleep studies: No Year and Where: 2019 [facility] CPAP Compliance Data - Data Reviewed with Patient Average duration of nightly device use: 6 HRS 41 MIN Compliance rate %: 97 (10/09/22-11/07/22; days used ) Current pressure setting (cmH2O): 15-18 Average residual AHI: 2.4 Central apnea: 0 Obstructive apnea: 0.3 Hypopnea: 2.0 Average large leak: 12.6 L/min Subjective Patient concerns: reports: air blowing in eyes (occasionally), other (drying skin around nose). denies: aerophagia, mask discomfort, mask leak noise, condensation in mask/hose, nasal congestion, dry mouth, nose, throat, epistaxis Observed to snore while using device: No Current pressure setting perceived as: comfortable On therapy, patient: reports: sleeping better, awakening more refreshed, being more awake and alert during the day, more rested overall. denies: drowsiness while driving Initial [place] Sleepiness Scale score: 23 (in 2019) Current [place] Sleepiness Scale score: 3 (11/09/22) Allergies and Home Medications Known drug allergies: No Drug allergies reviewed: Yes Home medication list reviewed: Yes (no changes) Allergy and home medication list: Allergies No Known Drug Allergies Allergy (Verified 11/08/22 14:28) Review of Systems Review of systems same as previous: Yes (no changes) Physical Exam Vital signs obtained and entered by: JOE Snyder MA Blood Pressure: 138/92 (LEFT ) Cuff size: wrist Heart Rate: 94 O2 Saturation: 95 Height: 6 ft 2 in Weight: 610 lb Body Mass Index: 78.2 BMI Classification: Morbidly Obese Impression and Plan 1. Obstructive Sleep Apnea-Hypopnea Syndrome, extremely severe, with good treatment compliance and good apnea control. On CPAP therapy, the patient has better sleep quality and is more rested overall. Patient has been getting supplies online but would like to go with a DME supplier. I will have my event coordinator inform of DME options. A DWO prescription will then be made. Patient advised to contact this office if further supply problems. Patient's apnea severity and rationale for treatment to reduce apnea, improve sleep quality and reduce cardiovascular and cerebrovascular events was reviewed. I also reviewed the benefit of consistent device use of CPAP for depression/anxiety. 2. Obesity, Morbid. Currently patients BMI is 78.2. Obesity increases the risk of apnea, CPAP pressure requirements and overall health risks especially cardiovascular and diabetes. Thus patient is advised to lose weight. Continue auto CPAP pressure at 15-18 cmH2O Transfer DME for supplies Notify me if snoring with mask or feeling that the pressure is too much or too little Attempt to lose weight Call this office if any problems using CPAP Return for follow up in 1 year, or sooner if concerns arise Counseling Topics: Spare mask, Weight loss health impact Visit Type: In Office Time Spent with Patient (minutes): 21 Provider Statement: I spent 100% of the Face to Face Visit with the patient with greater than 50% spent counseling the patient and coordination of care.
[2022-11-09 11:54] VITALS: BP 138/92
== END 2022-11-09 11:25 | disposition home or self-care (01) ==
LOC: SC 11:24
PROVIDERS: ATTEND Nurse Practitioner Family
DX: G47.33 Obstructive sleep apnea (adult) (pediatric) (principal); E66.01 Morbid (severe) obesity due to excess calories; Z68.45 Body mass index [BMI] 70 or greater, adult
CPT/HCPCS: 99212; 99213

== ENCOUNTER 2023-01-23 16:18 | Outpatient (CLI) | payer MEDICAID ==
[2023-01-23 20:27] LABS: BASOPHILS # (AUTO) 0.1 10^3/uL (0.0-0.1); BASOPHILS % (AUTO) 0.8 %; EOSINOPHILS # (AUTO) 0.2 10^3/uL (0.0-0.7); EOSINOPHILS % (AUTO) 2.1 %; HCT - HEMATOCRIT 39.6 % (42.0-52.0); HGB - HEMOGLOBIN 12.6 g/dL (14.0-18.0); LYMPHOCYTES # (AUTO) 1.6 10^3/uL (1.5-3.5); LYMPHOCYTES % (AUTO) 15.9 %; MEAN CORPUSCULAR HEMOGLOBIN 28.1 pg (27.0-31.0); MEAN CORPUSCULAR HGB CONC 31.8 g/dL (32.0-36.0); MEAN CORPUSCULAR VOLUME 88.2 fL (80.0-94.0); MEAN PLATELET VOLUME 11.6 fL (7.4-11.4); MONOCYTES # (AUTO) 0.7 10^3/uL (0.0-1.0); MONOCYTES % (AUTO) 7.4 %; NEUTROPHILS # (AUTO) 7.1 10^3/uL (1.5-6.6); PLT - PLATELET COUNT 220 10^3/uL (130-450); RED BLOOD COUNT 4.49 10^6/uL (4.70-6.10); RED CELL DISTRIBUTION WIDTH 14.6 % (12.0-15.0)
[2023-01-23 20:42] LABS: ALBUMIN/GLOBULIN RATIO 1.3 (1.0-2.2); ALKALINE PHOSPHATASE 69 IU/L (42-121); ALT ALANINE AMINOTRANSFERASE 24 IU/L (10-60); AST ASPARTATE AMINOTRANSFERASE 20 IU/L (10-42); BILIRUBIN,TOTAL 0.5 mg/dL (0.2-1.0); BUN - BLOOD UREA NITROGEN 14 mg/dL (6-20); CALCIUM 9.3 mg/dL (8.5-10.3); CARBON DIOXIDE - CO2 24 mmol/L (21-32); CHLORIDE 106 mmol/L (101-111); CHOL/HDL RATIO 4.1 (<5.0); CHOLESTEROL 119 mg/dL; CREATININE 0.6 mg/dL (0.6-1.3); GFR - MDRD 155 (>89); GLUCOSE 111 mg/dL (74-104); HDL CHOLESTEROL 29 mg/dL; LDL CHOLESTEROL,CALCULATED 58 mg/dL; POTASSIUM 4.1 mmol/L (3.5-4.5); SODIUM 135 mmol/L (135-145); TOTAL PROTEIN 7.1 g/dL (6.4-8.9); TRIGLYCERIDES 159 mg/dL (48-352); VLDL CHOLESTEROL 32 mg/dL
[2023-01-23 20:55] LABS: ESTIMATED AVERAGE GLUCOSE 100 mg/dL (70-100); HEMOGLOBIN A1c% 5.1 % (4.27-6.07)
== END 2023-01-23 16:19 | disposition home or self-care (01) ==
LOC: LAB.N 16:18
PROVIDERS: ATTEND Nurse Practitioner
DX: I10 Essential (primary) hypertension (principal); Z13.220 Encounter for screening for lipoid disorders; E66.01 Morbid (severe) obesity due to excess calories
CPT/HCPCS: 36415; 80053; 80061; 83036; 83721; 85025

== ENCOUNTER 2023-05-01 08:00 | Outpatient (CLI) | payer MEDICAID ==
[2023-05-01 19:05] LABS: INFLUENZA A- RESP PCR PANEL NOT DETECTED; INFLUENZA B - RESP PCR PANEL NOT DETECTED; RSV- RESP PCR PANEL NOT DETECTED; SARS-CoV-2 -RESP PCR PANEL DETECTED
== END 2023-05-01 23:59 | disposition home or self-care (01) ==
LOC: LAB.WCP 08:00
PROVIDERS: ATTEND Nurse Practitioner
DX: U07.1 COVID-19 (principal)
CPT/HCPCS: 87637

== ENCOUNTER 2023-09-22 02:27 | Outpatient (CLI) | payer MEDICAID | END 2023-09-22 21:54 | disposition critical access hospital (66) | LOC: EMS 02:27 | DX: I48.91 Unspecified atrial fibrillation (principal) | CPT/HCPCS: A0425; A0427; A0999 ==

== ENCOUNTER 2023-09-22 02:47 | Emergency (ER) | payer MEDICAID ==
--- NOTE | 2023-09-22 03:02 | ED Physician Documentation ---
PD HPI ABD PAIN - Stated complaint Stated Complaint: CP AND SOA - Chief complaint Chief Complaint: Cardiac - History obtained from History obtained from: Patient, EMS - Additional information Additional information: 32-year-old male with history of obstructive sleep apnea, super morbid obesity presents by EMS from home for chest pain and shortness of breath. Patient states that he had a mushroom edible earlier in the evening and around 10 PM he noticed palpitations as well as some exertional shortness of breath.EMS noted that patient was in atrial fibrillation in route. Patient denies history of atrial fibrillation or heart disease. Patient is adamant that symptoms started this evening. He has had no chest pain or palpitations prior to this evening Review of Systems Constitutional: denies: Fever, Chills Cardiac: reports: Palpitations. denies: Chest pain / pressure, Calf pain Respiratory: reports: Dyspnea. denies: Cough, Wheezing GI: denies: Abdominal Pain, Nausea, Vomiting, Constipation, Diarrhea Neurologic: denies: Generalized weakness, Focal weakness, Numbness PD PAST MEDICAL HISTORY - Past Medical History Past Medical History: Yes Cardiovascular: Hypertension Respiratory: Asthma, Sleep apnea, CPAP use Neuro: None Endocrine/Autoimmune: Other GI: Other : None Psych: Depression Musculoskeletal: Other Derm: None - Past Surgical History Past Surgical History: No - Present Medications Home Medications: Ambulatory Orders Medication Instructions Recorded Confirmed Furosemide [Lasix] 40 mg PO DAILY #30 tablet 01/16/22 11/09/22 - Allergies Allergies/Adverse Reactions: Allergies Allergy/AdvReac Type Severity Reaction Status Date / Time No Known Drug Allergies Allergy Verified 09/22/23 03:00 - Social History Does the pt smoke?: No Smoking Status: Never smoker - POLST Patient has POLST: No POLST Status: Full Code PD ED PE NORMAL - Vitals Vital signs reviewed: Yes - General General: Alert and oriented X 3, No acute distress - Cardiac Cardiac: Other (Tachycardia, irregularly irregular) - Respiratory Respiratory: No respiratory distress - Abdomen Abdomen: Soft, Non tender, Non distended - Derm Derm: Normal color, Warm and dry, No rash - Neuro Neuro: Alert and oriented X 3, attacher 2-12 intact, No motor deficit, Normal speech Results - Vitals Vitals: Vital Signs - 24 hr 09/22/23 09/22/23 09/22/23 02:57 03:00 04:06 Temperature 36.7 C Heart Rate 110 H 115 H 135 H Respiratory 20 20 18 Rate Blood Pressure 156/85 H 149/89 H 126/83 H O2 Saturation 98 98 99 If not protocol : Oxygen Flow, liters/minute 09/22/23 09/22/23 09/22/23 05:11 05:15 05:18 Temperature Heart Rate 133 H 138 H 162 H Respiratory 20 19 33 H Rate Blood Pressure 133/98 H 149/101 H 148/133 H O2 Saturation 97 94 82 L If not protocol 6 : Oxygen Flow, liters/minute 09/22/23 09/22/23 09/22/23 05:20 05:29 05:31 Temperature Heart Rate 156 H 119 H 107 H Respiratory 26 H 28 H 26 H Rate Blood Pressure 159/119 H 151/98 H O2 Saturation 95 99 If not protocol 15 15 : Oxygen Flow, liters/minute 09/22/23 09/22/23 09/22/23 05:43 06:00 06:03 Temperature Heart Rate 97 92 90 Respiratory 18 18 16 Rate Blood Pressure 137/90 H 128/94 H 132/73 H O2 Saturation 99 98 94 If not protocol : Oxygen Flow, liters/minute Oxygen O2 Source Room air - Labs Labs: Laboratory Tests 09/22/23 09/22/23 09/22/23 03:12 03:12 03:12 WBC 12.3 H RBC 4.60 L Hgb 12.3 L Hct 40.6 L MCV 88.3 MCH 26.7 L MCHC 30.3 L RDW 14.8 Plt Count 234 MPV 10.6 Neut # (Auto) 8.7 H Lymph # (Auto) 2.3 [place] # (Auto) 0.9 Eos # (Auto) 0.2 Baso # (Auto) 0.1 Absolute Nucleated RBC 0.00 Nucleated RBC % 0.0 Sodium 135 Potassium 4.0 Chloride 103 Carbon Dioxide 28 Anion Gap 4.0 L BUN 15 Creatinine 0.9 Estimated GFR (MDRD) 97 Glucose 100 Calcium 9.4 Total Bilirubin 0.5 AST 15 ALT 21 Alkaline Phosphatase 66 Troponin I High Sens 3.9 B-Natriuretic Peptide 44 Total Protein 7.3 Albumin 4.1 Globulin 3.2 Albumin/Globulin Ratio 1.3 TSH 4.71 Salicylates < 1.5 Acetaminophen 0.1 Ethyl Alcohol < 10.0 Procedures - Procedural sedation Sedation prep: Informed consent, Time out completed, Last meal, PE performed, ASA 3 - severe disease Sedation Medications: ketamine, versed Mallampati classification: II Patient status during sedation: Responds to tactile, Vitals remained stable, Needed resp assistance (jaw thrust) Sedation recovery: Recovered uneventfully, Back to baseline Time in sedation (Minutes): 15 - Cardioversion - Major Attempt 1 Indication: Tachyarrhythmia Risks, benefits, alternatives explained to: Pt Prep: IV, O2, asp net c developer, Pulse ox, Airway equip Meds: Valium CS via: Pads, AP approach Sync: Biphasic, 200j Post cardioversion rhythm: A-fib Performed by: ED MD Attempt 2 Indication: Tachyarrhythmia Risks, benefits, alternatives explained to: Pt Prep: IV, O2, asp net c developer, Pulse ox, Airway equip CS via: Pads, AP approach Sync: 200j Post cardioversion rhythm: NSR Performed by: ED MD Medical Decision Making - ED course Complexity details: reviewed results, re-evaluated patient, considered d ifferential, d/w patient ED course: Shortness of breath and chest pain/palpitations beginning earlier this evening. Found to be in atrial fibrillation with rapid ventricular response, no history of A-fib. Since patient has very clear onset of symptoms will attempt to chemically cardiovert with procainamide. Patient received IV procainamide with no change, he is still in atrial fibrillation with rapid ventricular response. Risks and benefits of cardioversion discussed with patient, he agrees to attempt electrocardioversion. Patient underwent electrocardioversion x 2 synchronized 200 J. He did not initially have success after cardioversion, however several minutes after his last delivered shock he converted to sinus tachycardia. Case discussed with Dr. Dela Cruz of [facility] cardiology, who recommended initiation of amiodarone as well as 24-hour loading dose protocol in order to prevent patient going back into atrial fibrillation. He stated that due to patient's extreme obesity with BMI of 89.9 DOACs would be unpredictable and patient would be better anticoagulated on warfarin. Subsequently patient should be on amiodarone 200mg bid. Call placed to hospitalist, who does not feel admission is necessary at this time. Patient continued on amiodarone gtt in ED. Care o patient signed to Dr. Cotton at 0730 Departure - Departure Clinical Impression: Atrial fibrillation Condition: Stable Forms: PCP List
[2023-09-22] MEDS ORDERED: PROCAINAMIDE 100 MG/1 ML 10 ML MDV IV ONE (03:09)
[2023-09-22] MEDS ORDERED: PROCAINAMIDE 1,000 MG/10 ML SYRINGE ONE ×2 (03:17→03:38)
[2023-09-22 03:21] LABS: BASOPHILS # (AUTO) 0.1 10^3/uL (0.0-0.1); BASOPHILS % (AUTO) 0.6 %; EOSINOPHILS # (AUTO) 0.2 10^3/uL (0.0-0.7); EOSINOPHILS % (AUTO) 1.9 %; HCT - HEMATOCRIT 40.6 % (42.0-52.0); HGB - HEMOGLOBIN 12.3 g/dL (14.0-18.0); LYMPHOCYTES # (AUTO) 2.3 10^3/uL (1.5-3.5); LYMPHOCYTES % (AUTO) 18.4 %; MEAN CORPUSCULAR HEMOGLOBIN 26.7 pg (27.0-31.0); MEAN CORPUSCULAR HGB CONC 30.3 g/dL (32.0-36.0); MEAN CORPUSCULAR VOLUME 88.3 fL (80.0-94.0); MEAN PLATELET VOLUME 10.6 fL (7.4-11.4); MONOCYTES # (AUTO) 0.9 10^3/uL (0.0-1.0); NEUTROPHILS # (AUTO) 8.7 10^3/uL (1.5-6.6); NEUTROPHILS % (AUTO) 70.3 %; PLT - PLATELET COUNT 234 10^3/uL (130-450); RED CELL DISTRIBUTION WIDTH 14.8 % (12.0-15.0); WHITE BLOOD COUNT 12.3 x10^3/uL (4.8-10.8)
[2023-09-22] MEDS: PROCAINAMIDE 100 MG/1 ML 10 ML MDV IV STA (03:22)
[2023-09-22 03:40] LABS: ACETAMINOPHEN 0.1 ug/mL; ALBUMIN 4.1 g/dL (3.2-5.5); ALBUMIN/GLOBULIN RATIO 1.3 (1.0-2.2); ALKALINE PHOSPHATASE 66 IU/L (42-121); ALT ALANINE AMINOTRANSFERASE 21 IU/L (10-60); AST ASPARTATE AMINOTRANSFERASE 15 IU/L (10-42); BILIRUBIN,TOTAL 0.5 mg/dL (0.2-1.0); BUN - BLOOD UREA NITROGEN 15 mg/dL (6-20); CALCIUM 9.4 mg/dL (8.5-10.3); CARBON DIOXIDE - CO2 28 mmol/L (21-32); CHLORIDE 103 mmol/L (101-111); CREATININE 0.9 mg/dL (0.6-1.3); ETOH - ETHANOL < 10.0 mg/dL; GFR - MDRD 97 (>89); GLUCOSE 100 mg/dL (74-104); SODIUM 135 mmol/L (135-145); TOTAL PROTEIN 7.3 g/dL (6.4-8.9)
[2023-09-22] MEDS: PROCAINAMIDE 1,000 MG in SODIUM CHLORIDE 0.9% 240 ML IV STA (03:42)
[2023-09-22 03:44] LABS: SALICYLATE < 1.5 mg/dL; TROPONIN I HIGH SENSITIVITY 3.9 ng/L (2.3-19.7)
[2023-09-22 03:54] LABS: THYROID STIMULATING HORMONE 4.71 uIU/mL (0.34-5.60)
[2023-09-22] MEDS: MIDAZOLAM 2 MG/2 ML VIAL IVP STA (05:14)
[2023-09-22] MEDS: fentaNYL 100 MCG/2 ML VIAL IVP STA (05:15)
[2023-09-22] MEDS: KETAMINE 500 MG/10 ML VIAL IVP STA (05:15)
[2023-09-22] MEDS: AMIODARONE 150 MG/100 ML 100 ML IV ONE (05:49)
[2023-09-22] MEDS: ONDANSETRON 4 MG/2 ML VIAL IVP STA (06:08)
[2023-09-22] MEDS: AMIODARONE 360 MG/200 ML 200 ML IV ONE (07:01)
[2023-09-22] MEDS ORDERED: WARFARIN 5 MG TABLET PO STA (07:12)
[2023-09-22] MEDS: WARFARIN 5 MG TABLET PO STA (08:28)
[2023-09-22 09:23] LABS: BILIRUBIN,URINE NEGATIVE (NEGATIVE); GLUCOSE, URINE (UA) NEGATIVE (NEGATIVE); KETONES,URINE (UA) NEGATIVE (NEGATIVE); LEUKOCYTE ESTERASE, URINE NEGATIVE (NEGATIVE); NITRITE,URINE NEGATIVE (NEGATIVE); OCCULT BLOOD,URINE NEGATIVE (NEGATIVE); PROTEIN,URINE NEGATIVE (NEGATIVE); UROBILINOGEN,URINE 0.2 (NORMAL) E.U./dL (NORMAL)
[2023-09-22 09:25] LABS: CLARITY,URINE CLEAR (CLEAR)
--- NOTE | 2023-09-22 10:26 | XRAY Report ---
PROCEDURE: Chest 1V INDICATIONS: chest pain, dyspnea, new a fib TECHNIQUE: One view of the chest was acquired. COMPARISON: None FINDINGS: Heart size is enlarged. Mild vascular congestion noted lungs and pleural spaces are otherwise clear. Osseous structures normal. IMPRESSION: Cardiomegaly and mild vascular congestion Reviewed by: Hemant Mahoney MD on 09/22/2023 9:24 AM AKDT Approved by: Hemant Mahoney MD on 09/22/2023 9:24 AM AKDT Station ID: [id number]
[2023-09-22] MEDS: AMIODARONE 360 MG/200 ML 200 ML IV SCH (12:38)
--- NOTE | 2023-09-22 18:40 | ED Physician Documentation ---
ED Addendum - Addendum Addendum: 09/22/23 18:39 patient left in my care with plan to complete monitored amioderone loading over 24 hours. He will be here overnight and had no issues during the day shift. He is left in the care of the mid shift physician.
--- NOTE | 2023-09-22 21:58 | ED Physician Documentation ---
ED Addendum - Addendum Addendum: 09/22/23 21:58 No changes during my shift. Patient signed out to the oncoming ED physician
--- NOTE | 2023-09-23 06:41 | ED Physician Documentation ---
ED Addendum - Addendum Addendum: 09/23/23 06:29 This patient was initially evaluated by my colleague Dr. Vieira; please see her note for complete H&P. This patient has been in the emergency department for over 24 hours by the end of my shift and thus has gone through past-through 2 to more emergency department physicians before my shift. During my overnight shift, the patient did not have any issues. He is receiving IV amiodarone as a 24-hour load and will be done with this very shortly after the end of my shift at 7 AM. I briefly evaluated the patient. He is awake, alert, and in no distress. He reports feeling asymptomatic. He has been in sinus rhythm during my shift with blood pressures within normal range. I contacted the paediatric physiotherapist for [facility], Dr. Deng; this is the same paediatric physiotherapist that my colleague Dr. Vieira spoke to towards the beginning of this patient's ED stay. The reason I recontacted the paediatric physiotherapist was to clarify the discharge plan. Dr. Deng confirms that his recommendation is to prescribe the patient amiodarone when he is discharged with a taper as follows: Amiodarone 400mg PO BID x 1 week, then 400mg PO QD x 2 weeks, then 200mg PO QD maintenance. Whereas Dr. Deng had been recommending warfarin, he is now instead recommending 325 mg aspirin p.o. daily but no other blood-thinning agents at this time. Dr. Deng says patient can follow up with his PCP but needs to do so within a month, as I will only be providing a one month rx for the amiodarone. Dr. Carolyn fernandez says that the PCP can decide on whether to continue the maintenance amiodarone or else refer patient to cardiology.
[2023-09-23 07:52] VITALS: BP 117/63; O2SAT 97
== END 2023-09-23 08:07 | disposition home or self-care (01) ==
LOC: EDUNIT# → ED 02:47
DX: I48.91 Unspecified atrial fibrillation (principal); E66.01 Morbid (severe) obesity due to excess calories; Z68.45 Body mass index [BMI] 70 or greater, adult
CPT/HCPCS: 36415; 71045; 80053; 80143; 80179; 81003; 82077; 83880; 84443; 84484; 85025; 92960; 93005; 96365; 96366; 96368; 96375; 96376; 99152; 99285; A9270; J0282; J2690; 81001; 87086

== ENCOUNTER 2023-10-24 09:36 | Outpatient (CLI) | payer MEDICAID | END 2023-10-24 09:37 | disposition home or self-care (01) | LOC: DI 09:36 | PROVIDERS: ATTEND Physician Assistant Medical | DX: I48.91 Unspecified atrial fibrillation (principal) | CPT/HCPCS: 93307 ==

== ENCOUNTER 2023-11-06 23:56 | Outpatient (CLI) | payer MEDICAID | END 2023-11-06 23:59 | disposition critical access hospital (66) | LOC: EMS 23:56 | DX: R10.814 Left lower quadrant abdominal tenderness (principal); R10.813 Right lower quadrant abdominal tenderness; K42.9 Umbilical hernia without obstruction or gangrene; K92.1 Melena; R03.0 Elevated blood-pressure reading, without diagnosis of hypertension | CPT/HCPCS: A0425; A0429; A0999 ==

== ENCOUNTER 2023-11-07 00:15 | Emergency (ER) | payer MEDICAID ==
--- NOTE | 2023-11-07 00:25 | ED Physician Documentation ---
PD HPI ABD PAIN - Stated complaint Stated Complaint: HERNIA PAIN - History obtained from History obtained from: Patient, EMS - Additional information Additional information: BIBA. HPI from patient. Patient c/o abdominal pain, nausea without vomiting. Symptoms started morning of 11/06/23 without inciting event. He has long-standing umbilical hernia and is familiar with reducing the hernia manually when it is causing symptoms. This morning, he had gradual onset of pain at the site of the umbilical hernia associated with mild nausea. He was unable to reduce the hernia which he says is very unusual. Throughout the day, the pain was constant and steadily worsened. Repeated attempts to reduce the hernia were unsuccessful. This evening, he had a single episode of BRBPR and this, combined with the ongoing hernia pain, prompted him to call 911. He did not noticed any clots of blood. He says he has been having intermittent episodes of BRBPR and thus this is not new for him, but his concern increased in the context of the hernia-related symptoms he has had all day. Denies diarrhea, constipation, fever. Review of Systems Cardiac: reports: Reviewed and negative Respiratory: reports: Reviewed and negative GI: reports: Abdominal Pain, Nausea, Bloody / black stool. denies: Abdominal Swelling, Vomiting, Constipation, Diarrhea PD PAST MEDICAL HISTORY - Past Medical History Past Medical History: Yes Cardiovascular: Hypertension, Atrial fibrillation Respiratory: Asthma, Sleep apnea, CPAP use Neuro: None Endocrine/Autoimmune: Other GI: Other : None Psych: Depression Musculoskeletal: Other Derm: None Other Past Medical History: umbilical hernia - Past Surgical History Past Surgical History: No - Present Medications Home Medications: Ambulatory Orders Medication Instructions Recorded Confirmed Amiodarone [Pacerone] See Rx Instructions .ROUTE 09/23/23 .COMPLEX 30 Days #63 tablet Aspirin [Becky] 325 mg PO DAILY #30 tablet 09/23/23 - Allergies Allergies/Adverse Reactions: Allergies Allergy/AdvReac Type Severity Reaction Status Date / Time No Known Drug Allergies Allergy Verified 11/07/23 00:27 - Social History Does the pt smoke?: No Smoking Status: Never smoker - POLST Patient has POLST: No POLST Status: Full Code PD ED PE NORMAL - Vitals Vital signs reviewed: Yes - General General: Alert and oriented X 3, No acute distress, Well developed/nourished - Cardiac Cardiac: RRR, No murmur - Respiratory Respiratory: No respiratory distress, Clear bilaterally - Abdomen Abdomen: Normal bowel sounds, Soft, Non distended PD ED PE EXPANDED - Abdomen Abdomen: Other (umbilical hernia is both palpable and visible. there are seemingly two components, with the larger component at/below (caudal to) umbilicus and smaller component at/above (cranial to) umbilicus. both components are soft, mildly tender.) Results - Vitals Vitals: Vital Signs - 24 hr 11/07/23 11/07/23 11/07/23 00:19 00:27 02:21 Temperature 36.5 C Heart Rate 78 82 74 Respiratory 18 18 Rate Blood Pressure 173/93 H 145/88 H O2 Saturation 96 98 Oxygen O2 Source Room air - Labs Labs: Laboratory Tests 11/07/23 11/07/23 11/07/23 00:38 00:38 00:38 WBC 10.0 RBC 4.60 L Hgb 12.7 L Hct 39.8 L MCV 86.5 MCH 27.6 MCHC 31.9 L RDW 15.4 H Plt Count 237 MPV 10.8 Neut # (Auto) 6.8 H Lymph # (Auto) 1.9 [place] # (Auto) 0.8 Eos # (Auto) 0.2 Baso # (Auto) 0.1 Absolute Nucleated RBC 0.00 Nucleated RBC % 0.0 Sodium 135 Potassium 4.2 Chloride 101 Carbon Dioxide 28 Anion Gap 6.0 BUN 15 Creatinine 0.9 Estimated GFR (MDRD) 97 Glucose 92 Lactic Acid 0.9 Calcium 9.9 Total Bilirubin 0.6 AST 19 ALT 23 Alkaline Phosphatase 64 Total Protein 7.9 Albumin 4.3 Globulin 3.6 Albumin/Globulin Ratio 1.2 Lipase 10 L PD Medical Decision Making - ED course Complexity details: reviewed results, re-evaluated patient, considered differential, d/w patient ED course: I was able to reduce nearly all of the hernia through a large, palpable umbilical defect. One small portion of the upper (cranial) part of the hernia did not reduce on initial attempts and thus blood tests undertaken, plain-film xrays ordered. CT was considered but patient's weight and body habitus would almost certainly preclude CT. Before the xrays were undertaken, the blood tests had already resulted and patient had been given 1 mg dilaudid IV and my subsequent attempt to reduce the entire hernia was successful. The patient had been in no obvious painful distress but was reporting moderate pain before the dilaudid was given, with reported improvement afterwards and then resolution of his pain with reduction of the hernia. The xrays were then cancelled . Unremarkable CBC, normal ER abdominal panel, and normal lactate level. Return precautions reviewed with patient. I advised him to seek follow up with PCP to inquire about referral to surgeon to discuss options for treatment. Departure - Departure Disposition: 01 Home, Self Care Clinical Impression: Umbilical hernia Condition: Good Instructions: ED Hernia Inguinal Comments: There were no concerning findings on tonight's blood test. Your red blood cell level was slightly below normal range, but similar to your previous results; this is an incidental finding (unrelated to tonight's symptoms/pain). Fortunately, I was able to completely reduce your umbilical ("bellybutton") hernia completely. It is quite common for the hernia to immediately recur after being reduced. Follow up with general surgeon to revisit options for treatment. Return to the ER if the hernia becomes increasingly painful, firm/hard, or if unable to reduce the hernia. Forms: PCP List Discharge Date/Time: 11/07/23 02:22
[2023-11-07 00:42] LABS: BASOPHILS # (AUTO) 0.1 10^3/uL (0.0-0.1); BASOPHILS % (AUTO) 0.8 %; EOSINOPHILS # (AUTO) 0.2 10^3/uL (0.0-0.7); EOSINOPHILS % (AUTO) 2.2 %; HCT - HEMATOCRIT 39.8 % (42.0-52.0); HGB - HEMOGLOBIN 12.7 g/dL (14.0-18.0); LYMPHOCYTES # (AUTO) 1.9 10^3/uL (1.5-3.5); LYMPHOCYTES % (AUTO) 18.9 %; MEAN CORPUSCULAR HEMOGLOBIN 27.6 pg (27.0-31.0); MEAN CORPUSCULAR HGB CONC 31.9 g/dL (32.0-36.0); MEAN CORPUSCULAR VOLUME 86.5 fL (80.0-94.0); MEAN PLATELET VOLUME 10.8 fL (7.4-11.4); MONOCYTES # (AUTO) 0.8 10^3/uL (0.0-1.0); MONOCYTES % (AUTO) 8.3 %; NEUTROPHILS # (AUTO) 6.8 10^3/uL (1.5-6.6); NEUTROPHILS % (AUTO) 67.9 %; PLT - PLATELET COUNT 237 10^3/uL (130-450); RED CELL DISTRIBUTION WIDTH 15.4 % (12.0-15.0)
[2023-11-07 01:13] LABS: ALBUMIN 4.3 g/dL (3.2-5.5); ALBUMIN/GLOBULIN RATIO 1.2 (1.0-2.2); BILIRUBIN,TOTAL 0.6 mg/dL (0.2-1.0); CALCIUM 9.9 mg/dL (8.5-10.3); CREATININE 0.9 mg/dL (0.6-1.3); POTASSIUM 4.2 mmol/L (3.5-4.5); TOTAL PROTEIN 7.9 g/dL (6.4-8.9)
[2023-11-07] MEDS: HYDROmorphone 1 MG/ML CARPUJECT IVP STA (01:13)
[2023-11-07 02:22] VITALS: BP 145/88; O2SAT 98
== END 2023-11-07 02:22 | disposition home or self-care (01) ==
LOC: EDUNIT# → ED 00:15
DX: K42.9 Umbilical hernia without obstruction or gangrene (principal)
CPT/HCPCS: 36415; 80053; 83605; 83690; 85025; 96374; 99283; 99284; J1170

== ENCOUNTER 2024-01-01 15:10 | Outpatient (CLI) | payer MEDICAID ==
--- NOTE | 2024-01-01 16:11 | Sleep Patient Instructions ---
Sleep Center Visit Summary - Patient Visit Information Reason for Visit: Annual follow-up for PAP therapy - Patient Instructions Additional Instructions: You will continue with CPAP therapy with pressure changed to 16-20 cmH2O. Please let us know if the pressure change is uncomfortable and we can make further adjustments of the pressure. A supply prescription will be updated with your DME supplier. We encourage you to continue to try to lose weight. Please follow up with the sleep care office in 1 year. - Clinic Information Contact: [facility] [address] [place] [address] [email or web address] T: [phone]
[2024-01-01 16:15] VITALS: BP 185/93; O2SAT 95
--- NOTE | 2024-01-01 16:15 | SLEEP CARE CONSULTATION ---
Information from patient questionnaire entered by Carrol Pratt. I have reviewed and concur with the information entered by Carrol Pratt. This document represents the service I personally performed and the decisions made by , Pretty Lemus ARNP. History of Present Illness Service Date and Time: 01/01/2024 1510 Previous diagnosis: Extremely Severe, Obstructive Sleep Apnea-Hypopnea Syndrome AHI: 109.7 (in 2019) Reason for follow up: annual (LAST SEEN 10/2022) Equipment type: CPAP (RESMED 11, s/u 05/2022) Equipment obtained from: Other ([employer], getting supplies) Mask style: Full face Backup mask available: Yes Last cushion change: 2 months Prior sleep studies: No Year and Where: 2019 [facility] Type of Sleep Study: Home sleep study HPI additional information: BRENT ESCOTO was diagnosed to have extremely severe, AHI 109.7, obstructive sleep apnea-hypopnea syndrome and returned today for CPAP therapy annual follow- up. Sleep Study - Results Type of Sleep Study: Home sleep study Prior sleep studies: No Year and Where: 2019 [facility] CPAP Compliance Data - Data Reviewed with Patient Average duration of nightly device use: 8 HRS 10 MINS Compliance rate %: 99 (12/30/22-12/29/23; 365/365 days used) Current pressure setting (cmH2O): 15-18 Average residual AHI: 3.2 Central apnea: 0 Obstructive apnea: 0.3 Hypopnea: 2.1 Average large leak: 20.4 L/min Subjective Patient concerns: reports: mask discomfort (headgear causes soreness on back of head). denies: aerophagia, air blowing in eyes, mask leak noise, condensation in mask/hose, nasal congestion, dry mouth, nose, throat, epistaxis Observed to snore while using device: No Current pressure setting perceived as: too low On therapy, patient: reports: sleeping better, awakening more refreshed, being more awake and alert during the day, more rested overall. denies: drowsiness while driving Initial [place] Sleepiness Scale score: 23 (in 2019) Current [place] Sleepiness Scale score: 1 (01/01/24) Allergies and Home Medications Known drug allergies: No Drug allergies reviewed: Yes Home medication list reviewed: Yes (metoprolol succinate) Allergy and home medication list: Allergies No Known Drug Allergies Allergy (Verified 01/01/24 15:17) Review of Systems Review of systems same as previous: Yes (NO CHANGE) Physical Exam Vital signs obtained and entered by: MINA Snyder MA Blood Pressure: 185/93 (LEFT WRIST) Cuff size: regular Heart Rate: 87 O2 Saturation: 95 Height: 6 ft Weight: 650 lb 12.8 oz Body Mass Index: 88.2 BMI Classification: Morbidly Obese Impression and Plan 1. Obstructive Sleep Apnea-Hypopnea Syndrome, extremely severe, with good treatment compliance and good apnea control. On CPAP therapy, the patient has better sleep quality and is more rested overall. He does get some soreness on the back of his head from his headgear. He has been using a sleeping mask in between mask and skin to reduce the neck soreness. He would like to try a different style of mask with headgear that does not go down as far on his neck. I will add a mask refitting to his prescription for supplies. Patient has significant improvement of their sleep apnea and is satisfied with current CPAP therapy. Patient denies problems with oral dryness, nasal congestion, epistaxis, skin irritation or aerophagia. Patient's apnea severity and rationale for treatment to reduce apnea, improve sleep quality and reduce cardiovascular and cerebrovascular events was reviewed. I also reviewed the benefit of consistent device use of CPAP for depression/anxiety. 2. Obesity, unspecified. Currently patients BMI is 88.2. Obesity increases the risk of apnea, CPAP pressure requirements and overall health risks especially cardiovascular and diabetes. Thus patient is advised to lose weight. * Change auto CPAP pressure to 16-20 cmH2O * Mask refitting * Update supply prescription * Notify me if snoring with mask or feeling that the pressure is too much or too little * Attempt to lose weight * Call this office if any problems using CPAP * Return for follow up in 12 months, or sooner if concerns arise Adjust device pressure to (cmH2O): 16-20 Counseling Topics: Spare mask, Weight loss health impact Prescriptions: Device supplies Follow up with Sleep Care in: 1 year Visit Type: In Office Time Spent with Patient (minutes): 20 Provider Statement: I spent 100% of the Face to Face Visit with the patient with greater than 50% spent counseling the patient and coordination of care.
== END 2024-01-01 15:11 | disposition home or self-care (01) ==
LOC: SC 15:10
PROVIDERS: ATTEND Nurse Practitioner Family
DX: G47.33 Obstructive sleep apnea (adult) (pediatric) (principal); E66.01 Morbid (severe) obesity due to excess calories; Z68.45 Body mass index [BMI] 70 or greater, adult
CPT/HCPCS: 99212; 99213

== ENCOUNTER 2024-01-15 15:13 | Outpatient (CLI) | payer MEDICAID ==
[2024-01-15 18:30] LABS: THYROID STIMULATING HORMONE 4.56 uIU/mL (0.34-5.60)
== END 2024-01-15 15:14 | disposition home or self-care (01) ==
LOC: LAB.N 15:13
PROVIDERS: ATTEND Nurse Practitioner
DX: I48.91 Unspecified atrial fibrillation (principal)
CPT/HCPCS: 36415; 84443

== ENCOUNTER 2024-01-29 10:53 | Outpatient (CLI) | payer MEDICAID | END 2024-01-29 23:59 | disposition critical access hospital (66) | LOC: EMS 10:53 | DX: R53.1 Weakness (principal); R50.9 Fever, unspecified | CPT/HCPCS: A0425; A0429; A0999 ==

== ENCOUNTER 2024-01-29 11:15 | Inpatient (IN) | payer MEDICAID ==
--- NOTE | 2024-01-29 11:47 | ED Physician Documentation ---
History of Present Illness - Stated complaint Stated Complaint: NOT FEELING WELL - Chief complaint Chief Complaint: Fever - Additonal information Additional information: Patient is a 33-year-old male presenting to the emergency department with past medical history of obesity, atrial fibrillation, hypertension. He notes on Saturday he was starting to not feel very well at work. He works at [employer] and notes he could have been exposed to a lot of sick people there. He Reports on Saturday he called into work and since then has had chills body aches fatigue. He denies any cough no shortness of breath no urinary symptoms. He has no viral URI symptoms including sore throat runny nose headaches. He has been compliant with his home medications of metoprolol and aspirin for his history of atrial fibrillation. He has not taken any other medications at home. He denies any dizziness lightheadedness nausea vomiting abdominal pain. PD PAST MEDICAL HISTORY - Past Medical History Cardiovascular: Hypertension, Atrial fibrillation Respiratory: Asthma, Sleep apnea, CPAP use Neuro: None Endocrine/Autoimmune: Other GI: Other : None Psych: Depression Musculoskeletal: Other Derm: None - Past Surgical History Past Surgical History: No - Present Medications Home Medications: Ambulatory Orders Medication Instructions Recorded Confirmed Amiodarone [Pacerone] See Rx Instructions .ROUTE 09/23/23 01/01/24 .COMPLEX 30 Days #63 tablet Aspirin [Becky] 325 mg PO DAILY #30 tablet 09/23/23 01/01/24 Metoprolol Succinate [Toprol Xl] See Rx Instructions .ROUTE .COMPLEX 01/01/24 01/01/24 - Allergies Allergies/Adverse Reactions: Allergies Allergy/AdvReac Type Severity Reaction Status Date / Time No Known Drug Allergies Allergy Verified 01/29/24 11:27 - Social History Does the pt smoke?: No Smoking Status: Never smoker - POLST Patient has POLST: No POLST Status: Full Code PD ED PE NORMAL - Vitals Vital signs reviewed: Yes - General General: Alert and oriented X 3, No acute distress - HEENT HEENT: Atraumatic, PERRL, EOMI, Ears normal, Moist mucous membranes, Pharynx benign - Neck Neck: Supple, no meningeal sign, No adenopathy - Cardiac Cardiac: Other (Irregular rhythm but nontachycardic on examination.) - Respiratory Respiratory: No respiratory distress, Clear bilaterally - Abdomen Abdomen: Normal bowel sounds, Non tender - Male Male : Deferred - Rectal Rectal: Deferred - Derm Derm: Normal color, No rash - Neuro Neuro: Alert and oriented X 3 Eye Opening: Spontaneous Motor: Obeys Commands Verbal: Oriented GCS Score: 15 Results - Vitals Vitals: Vital Signs - 24 hr 01/29/24 01/29/24 01/29/24 11:17 12:00 12:28 Temperature 40.3 C H 39.7 C H Heart Rate 119 H 101 H Respiratory 28 H 22 Rate Blood Pressure 115/58 L 96/49 L O2 Saturation 94 95 01/29/24 01/29/24 01/29/24 12:30 13:15 13:30 Temperature 103.2 C H Heart Rate 101 H 110 H 95 Respiratory 20 20 17 Rate Blood Pressure 96/49 L 96/49 L 96/49 L O2 Saturation 93 98 95 01/29/24 14:31 Temperature 37.6 C Heart Rate 98 Respiratory 20 Rate Blood Pressure 118/47 L O2 Saturation 96 Oxygen O2 Source Room air - Labs Labs: Laboratory Tests 01/29/24 01/29/24 01/29/24 11:30 11:55 11:55 WBC 20.3 H RBC 3.99 L Hgb 10.9 L Hct 35.3 L MCV 88.5 MCH 27.3 MCHC 30.9 L RDW 14.8 Plt Count 187 MPV 10.4 Neut # (Auto) 18.4 H Lymph # (Auto) 0.6 L [place] # (Auto) 0.9 Eos # (Auto) 0.0 Baso # (Auto) 0.1 Absolute Nucleated RBC 0.00 Nucleated RBC % 0.0 Manual Slide Review Indicated Platelet Estimate NORMAL (130-450,000) Platelet Morphology NORMAL APPEARANCE RBC Morph Micro Appear NORMAL APPEARANCE Sodium 130 L Potassium 4.3 Chloride 99 L Carbon Dioxide 26 Anion Gap 5.0 L BUN 11 Creatinine 0.9 Estimated GFR (MDRD) 97 Glucose 98 Lactic Acid Calcium 9.1 Total Bilirubin 0.8 AST 18 ALT 24 Alkaline Phosphatase 61 Total Protein 6.9 Albumin 3.7 Globulin 3.2 Albumin/Globulin Ratio 1.2 Urine Color Urine Clarity Urine pH Ur Specific Lind Urine Protein Urine Glucose (UA) Urine Ketones Urine Occult Blood Urine Nitrite Urine Bilirubin Urine Urobilinogen Ur Leukocyte Esterase Urine RBC Urine WBC Ur Squamous Epith Cells Urine Bacteria Ur Microscopic Review Urine Culture Comments Nasal Adenovirus (PCR) NOT DETECTED Nasal B. parapertussis DNA (PCR) NOT DETECTED Nasal Coronavir 229E PCR NOT DETECTED Nasal Coronavir HKU1 PCR NOT DETECTED Nasal Coronavir NL63 PCR NOT DETECTED Nasal Coronavir OC43 PCR NOT DETECTED Nasal Enterovir/Rhinovir PCR NOT DETECTED Nasal Influenza B PCR NOT DETECTED Nasal Influenza A PCR NOT DETECTED Nasal Parainfluen 1 PCR NOT DETECTED Nasal Parainfluen 2 PCR NOT DETECTED Nasal Parainfluen 3 PCR NOT DETECTED Nasal Parainfluen 4 PCR NOT DETECTED Nasal RSV (PCR) NOT DETECTED Nasal B.pertussis DNA PCR NOT DETECTED Nasal C.pneumoniae (PCR) NOT DETECTED [place] Human Metapneumo PCR NOT DETECTED Nasal M.pneumoniae (PCR) NOT DETECTED Nasal SARS-CoV-2 (PCR) NOT DETECTED 01/29/24 01/29/24 11:55 13:10 WBC RBC Hgb Hct MCV MCH MCHC RDW Plt Count MPV Neut # (Auto) Lymph # (Auto) [place] # (Auto) Eos # (Auto) Baso # (Auto) Absolute Nucleated RBC Nucleated RBC % Manual Slide Review Platelet Estimate Platelet Morphology RBC Morph Micro Appear Sodium Potassium Chloride Carbon Dioxide Anion Gap BUN Creatinine Estimated GFR (MDRD) Glucose Lactic Acid 1.3 Calcium Total Bilirubin AST ALT Alkaline Phosphatase Total Protein Albumin Globulin Albumin/Globulin Ratio Urine Color YELLOW Urine Clarity HAZY Urine pH 8.5 H Ur Specific Lind 1.020 Urine Protein NEGATIVE Urine Glucose (UA) NEGATIVE Urine Ketones NEGATIVE Urine Occult Blood NEGATIVE Urine Nitrite NEGATIVE Urine Bilirubin NEGATIVE Urine Urobilinogen 0.2 (NORMAL) Ur Leukocyte Esterase TRACE H Urine RBC 0-5 Urine WBC 6-10 H Ur Squamous Epith Cells MANY Squamous H Urine Bacteria Moderate H Ur Microscopic Review INDICATED Urine Culture Comments NOT INDICATED Nasal Adenovirus (PCR) Nasal B. parapertussis DNA (PCR) Nasal Coronavir 229E PCR Nasal Coronavir HKU1 PCR Nasal Coronavir NL63 PCR Nasal Coronavir OC43 PCR Nasal Enterovir/Rhinovir PCR Nasal Influenza B PCR Nasal Influenza A PCR Nasal Parainfluen 1 PCR Nasal Parainfluen 2 PCR Nasal Parainfluen 3 PCR Nasal Parainfluen 4 PCR Nasal RSV (PCR) Nasal B.pertussis DNA PCR Nasal C.pneumoniae (PCR) [place] Human Metapneumo PCR Nasal M.pneumoniae (PCR) Nasal SARS-CoV-2 (PCR) PD Medical Decision Making - ED course Complexity details: reviewed old records, reviewed results ED course: Patient is a 33-year-old male presenting to the emergency department with generally not feeling well including generalized bodyaches and fatigue. He denies any specific cough chest pain shortness of breath nausea vomiting abdominal pain or urinary symptoms. Symptoms started on Saturday and worsened yesterday and today. He has not taken anything for symptoms not found anything to make his symptoms better or worse. He works at [employer] and is unsure of any recent sick contacts. Vitals show significantly febrile to 104.5 here in emergency department slightly tachycardic but this resolved once patient was at rest. He is saturating well on room air at 94% and blood pressure normotensive here in emergency department. Patient was given a dose of Tylenol while here in the emergency department. Labs here in the emergency department remarkable for white blood cell count of 20. Chest x-ray shows signs of pulmonary vascular congestion which is similar to previous back on 09/22/2023. Mild anemia noted at 10.9 but lactic acid is negative. Urine analysis shows 6-10 white blood cells but many squamous cells as well and negative nitrites and leukocyte esterase. Low suspicion for UTI given patient has been asymptomatic as well. Blood cultures obtained and patient started on ceftriaxone and Vancomycin here in the emergency department. Patient receiving bite fluids given chest x-ray shows signs of fluid overload. No signs of cellulitis. No signs of wounds or infection on physical exam. Most likely yeast infection along the pannus, no signs of discharge or wounds concerning for infection. Patient given light fluids as blood pressure is soft here in emergency department temperature improved and tachycardia resolved here in the emergency department. Discussed case with Hopsitalist Dr. Garcia He is agreeable with admission for sepsis with unknown source at this time. Departure - Departure Disposition: 66 [facility] DC/Xfer Clinical Impression: Fever, Generalized body aches, Sepsis Condition: Good Forms: PCP List
[2024-01-29] MEDS ORDERED: ACETAMINOPHEN 325 MG TABLET PO ONE (11:57)
[2024-01-29] MEDS: ACETAMINOPHEN 325 MG TABLET PO STA (11:58)
[2024-01-29 12:01] LABS: BASOPHILS # (AUTO) 0.1 10^3/uL (0.0-0.1); BASOPHILS % (AUTO) 0.3 %; EOSINOPHILS % (AUTO) 0.1 %; HCT - HEMATOCRIT 35.3 % (42.0-52.0); HGB - HEMOGLOBIN 10.9 g/dL (14.0-18.0); LYMPHOCYTES # (AUTO) 0.6 10^3/uL (1.5-3.5); LYMPHOCYTES % (AUTO) 3.1 %; MEAN CORPUSCULAR HEMOGLOBIN 27.3 pg (27.0-31.0); MEAN CORPUSCULAR HGB CONC 30.9 g/dL (32.0-36.0); MEAN CORPUSCULAR VOLUME 88.5 fL (80.0-94.0); MEAN PLATELET VOLUME 10.4 fL (7.4-11.4); MONOCYTES # (AUTO) 0.9 10^3/uL (0.0-1.0); MONOCYTES % (AUTO) 4.4 %; NEUTROPHILS # (AUTO) 18.4 10^3/uL (1.5-6.6); NEUTROPHILS % (AUTO) 90.7 %; PLT - PLATELET COUNT 187 10^3/uL (130-450); RED BLOOD COUNT 3.99 10^6/uL (4.70-6.10); RED CELL DISTRIBUTION WIDTH 14.8 % (12.0-15.0); WHITE BLOOD COUNT 20.3 x10^3/uL (4.8-10.8)
[2024-01-29 12:05] LABS: SLIDE REVIEW? Indicated
--- NOTE | 2024-01-29 12:11 | XRAY Report ---
PROCEDURE: Chest 1V INDICATIONS: SOA TECHNIQUE: One view of the chest was acquired. COMPARISON: 09/22/2023. FINDINGS: Surgical changes and devices: None. Lungs and pleura: No pleural effusions or pneumothorax. Pulmonary venous congestion. Mediastinum: Mediastinal contours appear normal. Heart size is normal. Bones and chest wall: No suspicious bony lesions. Overlying soft tissues appear unremarkable. IMPRESSION: Pulmonary venous congestion. Reviewed by: Milan Horn MD on 01/29/2024 12:10 PM PDT Approved by: Milan Horn MD on 01/29/2024 12:10 PM PDT Station ID: [id number]
[2024-01-29 12:14] LABS: ALBUMIN 3.7 g/dL (3.2-5.5); ALBUMIN/GLOBULIN RATIO 1.2 (1.0-2.2); BILIRUBIN,TOTAL 0.8 mg/dL (0.2-1.0); CALCIUM 9.1 mg/dL (8.5-10.3); CREATININE 0.9 mg/dL (0.6-1.3); POTASSIUM 4.3 mmol/L (3.5-4.5); TOTAL PROTEIN 6.9 g/dL (6.4-8.9)
[2024-01-29 12:16] LABS: PLATELET ESTIMATE, MANUAL NORMAL (130-450,000) (NORMAL); PLATELET MORPHOLOGY NORMAL APPEARANCE (NORMAL); RBC MORPHOLOGY (MULTIPLE) NORMAL APPEARANCE (NORMAL)
[2024-01-29 12:39] LABS: B. PARAPERTUSSIS- RESP PCR PAN NOT DETECTED; B. PERTUSSIS- RESP PCR PANEL NOT DETECTED; C. PNEUMONIAE- RESP PCR PANEL NOT DETECTED; CORONAVIRUS 229E-RESP PCR NOT DETECTED; CORONAVIRUS HKU1-RESP PCR NOT DETECTED; CORONAVIRUS NL63-RESP PCR NOT DETECTED; CORONAVIRUS OC43-RESP PCR NOT DETECTED; HUMAN METAPNEUMOVIRUS NOT DETECTED; INFLUENZA A- RESP PCR PANEL NOT DETECTED; INFLUENZA B - RESP PCR PANEL NOT DETECTED; M. PNEUMONIAE- RESP PCR PANEL NOT DETECTED; PARAINFLUENZA VIRUS 1 NOT DETECTED; PARAINFLUENZA VIRUS 2 NOT DETECTED; PARAINFLUENZA VIRUS 3 NOT DETECTED; PARAINFLUENZA VIRUS 4 NOT DETECTED; RHINOVIRUS/ENTEROVIRUS NOT DETECTED; RSV- RESP PCR PANEL NOT DETECTED; SARS-CoV-2 -RESP PCR PANEL NOT DETECTED
[2024-01-29] MEDS: IBUPROFEN 800 MG TABLET PO STA (13:19)
[2024-01-29 13:39] LABS: BILIRUBIN,URINE NEGATIVE (NEGATIVE); GLUCOSE, URINE (UA) NEGATIVE (NEGATIVE); KETONES,URINE (UA) NEGATIVE (NEGATIVE); LEUKOCYTE ESTERASE, URINE TRACE (NEGATIVE); NITRITE,URINE NEGATIVE (NEGATIVE); OCCULT BLOOD,URINE NEGATIVE (NEGATIVE); PH,URINE 8.5 PH (5.0-7.5); PROTEIN,URINE NEGATIVE (NEGATIVE); UROBILINOGEN,URINE 0.2 (NORMAL) E.U./dL (NORMAL)
[2024-01-29 13:40] LABS: CLARITY,URINE HAZY (CLEAR)
[2024-01-29 13:53] LABS: BACTERIA,URINE Moderate /HPF (None Seen); RBC,URINE 0-5 /HPF (0-5); SQUAMOUS EPITHELIAL CELL,UR MANY Squamous (<= Few)
[2024-01-29] MEDS: cefTRIAXone 2 GM in SODIUM CHLORIDE 0.9% MINIBAG 100 ML IV STA (14:35)
[2024-01-29] MEDS: SODIUM CHLORIDE 0.9% 500 ML IV STA (14:35)
[2024-01-29] MEDS ORDERED: ONDANSETRON 4 MG/2 ML VIAL IVP PRN (14:57)
[2024-01-29] MEDS ORDERED: SODIUM CHLORIDE FLUSH 0.9% 10 ML SYRINGE IVP PRN (14:57)
--- NOTE | 2024-01-29 15:09 | HISTORY & PHYSICAL EXAMINATION ---
Chief Complaint - Chief Complaint Chief Complaint: Generalized body ache of 3 days with fever shakes and chills x 1 day History of Present Illness - Admitted From Admitted From:: ED - History Obtained From Records Reviewed: Yes History obtained from: Chart ,staff and patient - History of Present Illness HPI Comment/Other: This is a 33-year-old male with past medical history of morbid obesity obstructive sleep apnea childhood asthma hypertension A-fib who presents to ED of [facility] for 3 days of bodyaches feeling weak and fatigue with 1 day of fever chills and shakes. Patient denies urinary symptoms such as dysuria urinary frequency or hematuria for the patient denies URI symptoms such as runny nose coughing shortness of breath. Patient at this time denies any headache eye pain ear pain chest pain shortness of breath fevers chills nausea vomiting diarrhea constipation GI bleed bleed denies any focal weakness denies any sensory changes. In ER patient was found to be tachycardic with hypotension requiring IV hydration and broad-spectrum antibiotic as UA is positive admitted to the hospital for further workup. History - Past Medical History Cardiovascular: reports: Hypertension, Atrial fibrillation Respiratory: reports: Asthma, Sleep apnea, CPAP use Neuro: reports: None Endocrine/Autoimmune: reports: Other GI: reports: Other : reports: None Psych: reports: Depression Musculoskeletal: reports: Other Derm: reports: None MRSA Hx?: No - Family & Social History Family History Comment/Other: Mom is alive. Has diabetes. Dad is alive and also has diabetes and HTN. 4 brothers and 2 sisters. No medical issues but he does feel mental illness is present in them. No children. There are no cancers, thyroid, bleeding disorders in the family Living Situation: Alone Social History Notes: Never smoked. No history of alcohol abuse or recreational substance abuse. He is employed at [employer] 20 hours a week. Not . Has no children. From [place]. Came to live on [address] in 2014. He is only able to work 20 hours a week because of the pain in his feet and legs. The manager mental health at [employer] was trying to work with him so that he can do 4 hours of work, rest 4 hours, and then do another 4 hours of work so he can get 8 hours a day. He lives out of his car. During the day he goes to [facility] when not at his not work. He showers 3 days a week with the relationship to spin caf has with a gym. He also does laundry 1 day a week on . - Substance History Use: Uses substance without health or social issues: Alcohol (Is 2 beers about once a month), Cannabis (1 cigarette once a month) - POLST Patient has POLST: No POLST Status: Full Code Meds/Allgy - Home Medications Home Medications: Ambulatory Orders Medication Instructions Recorded Confirmed Amiodarone [Pacerone] See Rx Instructions .ROUTE 09/23/23 01/01/24 .COMPLEX 30 Days #63 tablet Aspirin [Becky] 325 mg PO DAILY #30 tablet 09/23/23 01/01/24 Metoprolol Succinate [Toprol Xl] See Rx Instructions .ROUTE .COMPLEX 01/01/24 01/01/24 - Allergies Allergies/Adverse Reactions: Allergies Allergy/AdvReac Type Severity Reaction Status Date / Time No Known Drug Allergies Allergy Verified 01/29/24 11:27 Review of Systems - Constitutional Constitutional: reports: Fatigue, Fever, Chills, Malaise, Weakness - Cardiovascular Cariovascular: denies: Chest pain, Syncope - Respiratory Respiratory: denies: SOB at rest - Genitourinary Genitourinary: denies: Dysuria, Frequency, Urgency, Hematuria Prior Level of Functionality: Ambulatory Exam - Vital Signs Reviewed Vital Signs: Yes Vital Signs: Vital Signs x48h Temp Pulse Resp BP Pulse Ox 01/29/24 14:31 37.6 C 98 20 118/47 L 96 01/29/24 13:30 95 17 96/49 L 95 01/29/24 13:15 103.2 C H 110 H 20 96/49 L 98 01/29/24 12:30 101 H 20 96/49 L 93 01/29/24 12:28 39.7 C H 01/29/24 12:00 101 H 22 96/49 L 95 01/29/24 11:17 40.3 C H 119 H 28 H 115/58 L 94 - Physical Exam General Appearance: positive: No acute distress Eyes Bilateral: positive: PERRL ENT: positive: Pharynx nml Neck: positive: Trachea midline Respiratory: positive: No respiratory distress, Breath sounds nml Cardiovascular: positive: Regular rate & rhythm, No murmur Abdomen: positive: Non-tender, Nml bowel sounds, No distention. negative: Guarding, Rebound Skin: positive: Warm Extremities: positive: Pedal edema Neurologic/Psychiatric: positive: Oriented x3, Motor nml Sepsis Event Note (H) - Evaluation Current Stage of Sepsis: Sepsis - Sepsis Criteria Sepsis Criteria: Recorded Temperature greater than 38.3C or Less than 36C, Rec orded Heart Rate greater than 90 bpm, WBC count greater than 12,000 or less than 4000 Conclusion/Plan - Problem List (1) Sepsis Conclusion/Plan: Will initiate broad-spectrum antibiotic vancomycin/Rocephin Obtain inflammatory markers Follow-up blood culture Follow-up urine culture Obtain JEAN CARLOS Obtain TSH Gentle IV hydration (2) UTI (urinary tract infection) Conclusion/Plan: IV antibiotic Rocephin/vancomycin Follow-up urine culture Follow-up inflammatory markers Continue gentle hydration (3) Atrial fibrillation Conclusion/Plan: Continue p.o.Amiodarone Continue gentle hydration Continue telemetry Obtain TSH Once blood pressure stabilized initiate beta-bette Continue aspirin (5) Hypertension Conclusion/Plan: Hold beta-bette Once BP stabilized will reinitiate beta-bette (6) Obstructive sleep apnea Conclusion/Plan: Continue home dose CPAP with PEEP of 18 (7) Morbid obesity Conclusion/Plan: Obtain TSH Dietitian consultation (8) CHF (congestive heart failure) Conclusion/Plan: Will obtain BMP Obtain echocardiogram Rule out right-sided heart failure Gentle hydration monitor fluid status - Lab Results Fish Bones: 01/29/24 11:55 01/29/24 11:55 Core Measures - Anticipated LOS I expect patient to be DC'd or transferred within 96 hours.: Yes - DVT/VTE - Prophylaxis VTE/DVT Device ordered at admit?: Yes VTE/DVT Prophylaxis med ordered at admit?: Yes
[2024-01-29] MEDS ORDERED: VANCOMYCIN INJ 1 GM in SODIUM CHLORIDE 0.9% 500 ML IV SCH (16:00)
[2024-01-29] MEDS ORDERED: VANCOMYCIN INJ 2.5 GM in SODIUM CHLORIDE 0.9% 500 ML IV ONE (16:00)
--- NOTE | 2024-01-29 16:01 | PHARMACY PROGRESS NOTE ---
- Therapy Status Vancomycin regimen day #: 1 Therapy status: Awaiting steady state Basis for treatment: Empirical Treatment indication: POSSIBLE SEPSIS Trough goal: AUC GOAL 400-600 Concurrent antibiotics: CEFTRIAXONE - JOSE Risk Risk level for Acute Kidney Injury: High Acute Kidney Injury risk factors: Wt >100kg or BMI >40, Total daily Vancomycin >4 grams, Sepsis - Monitoring and Recommendation Clinical response to treatment: I&O Previous 24 hours 01/27/24 01/28/24 01/29/24 23:59 23:59 23:59 Intake Total 600 Balance 600 Lab Results 01/29/24 11:55 BUN 11 Creatinine 0.9 Estimated GFR (MDRD) 97 Next trough due prior to maintenance dose #: 5 Next trough due (date/time): PLAN FOR TROUGH ON 01/30 WITH 0800 DOSE Areas for additional monitoring: Therapy de-escalation based on culture results, Acute Kidney Injury
[2024-01-29] MEDS: SODIUM CHLORIDE 0.9% 1,000 ML IV SCH (16:14)
[2024-01-29] MEDS: VANCOMYCIN INJ 2 GM, VANCOMYCIN INJ 500 MG in SODIUM CHLORIDE 0.9% 500 ML IV ONE (16:54)
--- NOTE | 2024-01-29 16:56 | PHARMACY PROGRESS NOTE ---
- Best Possible Medication History Admit Date and Time: 01/29/24 1516 Processed by: Pharmacy (Medication Reconciliation completed by retail pharmacy technician Jackeline) Medications reviewed in ED?: No Medication History completed: Yes Patient Interview: Completed Secondary Source(s): Insurance records As the person ultimately responsible for medication therapy, providers are able to order a medication from an existing home medication list in [facility] via the "Reconcile Routine" prior to Confirmation of that medication by call center support representative. Such practice is discouraged except when the physician, in their clinical judgment, deems that a medical need exists for a medication without regard to previous use.
[2024-01-29] MEDS: SODIUM CHLORIDE FLUSH 0.9% 10 ML SYRINGE IVP SCH (16:58)
[2024-01-29] MEDS: NYSTATIN POWDER 15 GM TOP SCH (20:41)
[2024-01-29] MEDS: FAMOTIDINE 20 MG/2 ML VIAL IVP SCH (20:42)
[2024-01-29] MEDS: HEPARIN 5,000 UNIT/ML VIAL SUBQ SCH (20:42)
[2024-01-29] MEDS ORDERED: cefTRIAXone 1 GM in SODIUM CHLORIDE 0.9% MINIBAG 100 ML IV SCH (21:00)
[2024-01-30] MEDS: VANCOMYCIN INJ 1 GM, VANCOMYCIN INJ 500 MG in SODIUM CHLORIDE 0.9% 500 ML IV SCH ×2 (00:08→17:53)
--- NOTE | 2024-01-30 00:38 | PROVIDER PROGRESS NOTE ---
Catering Server Note - Catering Server Note Catering Server Note: Called by RN stating "Pt here for Sepsis with +UA. Febrile at 102.7F. Can I get an order for tylenol prn? He got a 1 time dose in ED and it helped, but nothing on MAR now. Thank you." Tylenol ordered prn
[2024-01-30] MEDS: ACETAMINOPHEN 325 MG TABLET PO PRN (02:12)
[2024-01-30 05:48] LABS: BASOPHILS % (AUTO) 0.3 %; EOSINOPHILS % (AUTO) 0.1 %; HCT - HEMATOCRIT 32.1 % (42.0-52.0); HGB - HEMOGLOBIN 9.9 g/dL (14.0-18.0); LYMPHOCYTES # (AUTO) 0.7 10^3/uL (1.5-3.5); LYMPHOCYTES % (AUTO) 5.9 %; MEAN CORPUSCULAR HEMOGLOBIN 27.2 pg (27.0-31.0); MEAN CORPUSCULAR HGB CONC 30.8 g/dL (32.0-36.0); MEAN CORPUSCULAR VOLUME 88.2 fL (80.0-94.0); MEAN PLATELET VOLUME 10.6 fL (7.4-11.4); MONOCYTES # (AUTO) 0.6 10^3/uL (0.0-1.0); MONOCYTES % (AUTO) 5.1 %; NEUTROPHILS # (AUTO) 10.4 10^3/uL (1.5-6.6); NEUTROPHILS % (AUTO) 86.8 %; PLT - PLATELET COUNT 155 10^3/uL (130-450); RED BLOOD COUNT 3.64 10^6/uL (4.70-6.10); RED CELL DISTRIBUTION WIDTH 15.3 % (12.0-15.0); WHITE BLOOD COUNT 11.9 x10^3/uL (4.8-10.8)
[2024-01-30 06:01] LABS: CALCIUM 8.4 mg/dL (8.5-10.3); CREATININE 0.9 mg/dL (0.6-1.3); POTASSIUM 3.6 mmol/L (3.5-4.5)
--- NOTE | 2024-01-30 08:02 | PROVIDER PROGRESS NOTE ---
Subjective - Prog Note Date Prog Note Date: 01/30/24 Prog Note Time: 08:00 - Subjective Subjective: Patient on CPAP, denies any pain, fever over night positive. Current Medications - Current Medications Current Medications: Active Medications Acetaminophen (Acetaminophen 325 Mg Tablet) 650 mg PO Q4HR PRN PRN Reason: Pain or Fever > 38C (100.4F) Last Admin: 01/30/24 02:12 Dose: 650 mg Hydrocodone Bitart/Acetaminophen (Hydrocod/Acetam 5/325 Mg Tablet) 1 tab PO Q4HR PRN PRN Reason: Pain 5 to 7 Amiodarone HCl (Amiodarone 200 Mg Tablet) 200 mg PO DAILY [facility] Aspirin (Aspirin Ec 81 Mg Tablet) 81 mg PO DAILY [facility] Famotidine (Famotidine 20 Mg/2 Ml Vial) 20 mg IVP BID [facility] Last Admin: 01/29/24 20:42 Dose: 20 mg Heparin Sodium (Porcine) (Heparin 5,000 Unit/Ml Vial) 5,000 unit SUBQ BID [facility] Last Admin: 01/29/24 20:42 Dose: 5,000 unit Sodium Chloride (Normal Saline 0.9%) 1,000 mls @ 50 mls/hr IV .Q20H [facility] Last Infusion: 01/29/24 22:25 Dose: 50 mls/hr Ceftriaxone Sodium 2 gm/ (Sodium Chloride) 100 mls @ 200 mls/hr IV DAILY [facility] Vancomycin HCl 1 gm/Vancomycin HCl 500 mg/ Sodium Chloride 500 mls @ 250 mls/hr IV Q8H [facility] Last Infusion: 01/30/24 02:08 Dose: Infused Nystatin (Nystatin Powder 15 Gm) 0 applic TOP BID [facility] Last Admin: 01/29/24 20:41 Dose: 1 applic Ondansetron HCl (Ondansetron 4 Mg/2 Ml Vial) 4 mg IVP Q6HR PRN PRN Reason: Nausea / Vomiting Sodium Chloride (Sodium Chloride Flush 0.9% 10 Ml Syringe) 10 ml IVP PRN PRN PRN Reason: NEEDED PER PROVIDER ORDERS Sodium Chloride (Sodium Chloride Flush 0.9% 10 Ml Syringe) 10 ml IVP 0100,0900,1700 [facility] Last Admin: 01/30/24 00:09 Dose: Not Given Metoprolol Succinate [Toprol Xl] 50 mg PO DAILY 01/01/24 Objective - Vital Signs/Intake & Output Reviewed Vital Signs: Yes Vital Signs: Vital Signs x48h Temp Pulse Resp BP Pulse Ox 01/30/24 07:48 36.4 C L 91 18 166/95 H 98 01/30/24 04:55 36.8 C 91 16 135/85 H 96 01/30/24 00:21 39.1 C H 101 H 20 115/65 96 Intake & Output: Intake & Output 01/27/24 01/28/24 01/29/24 01/30/24 23:59 23:59 23:59 23:59 Intake Total 1854.166 500 Output Total 125 1350 Balance 1249.284 -239 - Objective General Appearance: positive: No acute distress Eyes Bilateral: positive: PERRL Neck: positive: Trachea midline Respiratory: positive: Breath sounds nml Cardiovascular: positive: Regular rate & rhythm, No murmur Abdomen: positive: Non-tender, Nml bowel sounds, No distention. negative: Guard ing, Rebound Skin: positive: Warm, Skin rash Extremities: positive: Pedal edema Neurologic/Psychiatric: positive: Oriented x3, Motor nml - Lab Results Fish Bones: 01/30/24 05:27 01/30/24 05:27 Other Labs: Lab Results x24hrs 01/30/24 01/30/24 01/30/24 Range/Units 05:27 05:27 05:27 WBC 11.9 H (4.8-10.8) x10^3/uL RBC 3.64 L (4.70-6.10) 10^6/uL Hgb 9.9 L (14.0-18.0) g/dL Hct 32.1 L (42.0-52.0) % MCV 88.2 (80.0-94.0) fL MCH 27.2 (27.0-31.0) pg MCHC 30.8 L (32.0-36.0) g/dL RDW 15.3 H (12.0-15.0) % Plt Count 155 (130-450) 10^3/uL MPV 10.6 (7.4-11.4) fL Neut # (Auto) 10.4 H (1.5-6.6) 10^3/uL Lymph # (Auto) 0.7 L (1.5-3.5) 10^3/uL [place] # (Auto) 0.6 (0.0-1.0) 10^3/uL Eos # (Auto) 0.0 (0.0-0.7) 10^3/uL Baso # (Auto) 0.0 (0.0-0.1) 10^3/uL Absolute Nucleated RBC 0.00 x10^3/uL Nucleated RBC % 0.0 /100WBC Manual Slide Review Platelet Estimate (NORMAL) Platelet Morphology (NORMAL) RBC Morph Micro Appear (NORMAL) Sodium 132 L (135-145) mmol/L Potassium 3.6 (3.5-4.5) mmol/L Chloride 103 (101-111) mmol/L Carbon Dioxide 23 (21-32) mmol/L Anion Gap 6.0 (6-13) BUN 12 (6-20) mg/dL Creatinine 0.9 (0.6-1.3) mg/dL Estimated GFR (MDRD) 97 (>89) Glucose 93 (74-104) mg/dL Lactic Acid (0.5-2.2) mmol/L Calcium 8.4 L (8.5-10.3) mg/dL Total Bilirubin (0.2-1.0) mg/dL AST (10-42) IU/L ALT (10-60) IU/L Alkaline Phosphatase (42-121) IU/L B-Natriuretic Peptide 52 (5-100) pg/mL Total Protein (6.4-8.9) g/dL Albumin (3.2-5.5) g/dL Globulin (2.1-4.2) g/dL Albumin/Globulin Ratio (1.0-2.2) Urine Color Urine Clarity (CLEAR) Urine pH (5.0-7.5) PH Ur Specific [place] (1.002-1.030) Urine Protein (NEGATIVE) mg/dL Urine Glucose (UA) (NEGATIVE) mg/dL Urine Ketones (NEGATIVE) mg/dL Urine Occult Blood (NEGATIVE) Urine Nitrite (NEGATIVE) Urine Bilirubin (NEGATIVE) Urine Urobilinogen (NORMAL) E.U./dL Ur Leukocyte Esterase (NEGATIVE) Urine RBC (0-5) /HPF Urine WBC (0-3) /HPF Ur Squamous Epith Cells (<= Few) Urine Bacteria (None Seen) /HPF Ur Microscopic Review Urine Culture Comments Nasal Adenovirus (PCR) Nasal B. parapertussis DNA (PCR) Nasal Coronavir 229E PCR Nasal Coronavir HKU1 PCR Nasal Coronavir NL63 PCR Nasal Coronavir OC43 PCR Nasal Enterovir/Rhinovir PCR Nasal Influenza B PCR Nasal Influenza A PCR Nasal Parainfluen 1 PCR Nasal Parainfluen 2 PCR Nasal Parainfluen 3 PCR Nasal Parainfluen 4 PCR Nasal RSV (PCR) Nasal B.pertussis DNA PCR Nasal C.pneumoniae (PCR) [place] Human Metapneumo PCR Nasal M.pneumoniae (PCR) Nasal SARS-CoV-2 (PCR) 01/29/24 01/29/24 01/29/24 Range/Units 13:10 11:55 11:55 WBC (4.8-10.8) x10^3/uL RBC (4.70-6.10) 10^6/uL Hgb (14.0-18.0) g/dL Hct (42.0-52.0) % MCV (80.0-94.0) fL MCH (27.0-31.0) pg MCHC (32.0-36.0) g/dL RDW (12.0-15.0) % Plt Count (130-450) 10^3/uL MPV (7.4-11.4) fL Neut # (Auto) (1.5-6.6) 10^3/uL Lymph # (Auto) (1.5-3.5) 10^3/uL [place] # (Auto) (0.0-1.0) 10^3/uL Eos # (Auto) (0.0-0.7) 10^3/uL Baso # (Auto) (0.0-0.1) 10^3/uL Absolute Nucleated RBC x10^3/uL Nucleated RBC % /100WBC Manual Slide Review Platelet Estimate (NORMAL) Platelet Morphology (NORMAL) RBC Morph Micro Appear (NORMAL) Sodium 130 L (135-145) mmol/L Potassium 4.3 (3.5-4.5) mmol/L Chloride 99 L (101-111) mmol/L Carbon Dioxide 26 (21-32) mmol/L Anion Gap 5.0 L (6-13) BUN 11 (6-20) mg/dL Creatinine 0.9 (0.6-1.3) mg/dL Estimated GFR (MDRD) 97 (>89) Glucose 98 (74-104) mg/dL Lactic Acid 1.3 (0.5-2.2) mmol/L Calcium 9.1 (8.5-10.3) mg/dL Total Bilirubin 0.8 (0.2-1.0) mg/dL AST 18 (10-42) IU/L ALT 24 (10-60) IU/L Alkaline Phosphatase 61 (42-121) IU/L B-Natriuretic Peptide (5-100) pg/mL Total Protein 6.9 (6.4-8.9) g/dL Albumin 3.7 (3.2-5.5) g/dL Globulin 3.2 (2.1-4.2) g/dL Albumin/Globulin Ratio 1.2 (1.0-2.2) Urine Color YELLOW Urine Clarity HAZY (CLEAR) Urine pH 8.5 H (5.0-7.5) PH Ur Specific [place] 1.020 (1.002-1.030) Urine Protein NEGATIVE (NEGATIVE) mg/dL Urine Glucose (UA) NEGATIVE (NEGATIVE) mg/dL Urine Ketones NEGATIVE (NEGATIVE) mg/dL Urine Occult Blood NEGATIVE (NEGATIVE) Urine Nitrite NEGATIVE (NEGATIVE) Urine Bilirubin NEGATIVE (NEGATIVE) Urine Urobilinogen 0.2 (NORMAL) (NORMAL) E.U./dL Ur Leukocyte Esterase TRACE H (NEGATIVE) Urine RBC 0-5 (0-5) /HPF Urine WBC 6-10 H (0-3) /HPF Ur Squamous Epith Cells MANY Squamous H (<= Few) Urine Bacteria Moderate H (None Seen) /HPF Ur Microscopic Review INDICATED Urine Culture Comments NOT INDICATED Nasal Adenovirus (PCR) Nasal B. parapertussis DNA (PCR) Nasal Coronavir 229E PCR Nasal Coronavir HKU1 PCR Nasal Coronavir NL63 PCR Nasal Coronavir OC43 PCR Nasal Enterovir/Rhinovir PCR Nasal Influenza B PCR Nasal Influenza A PCR Nasal Parainfluen 1 PCR Nasal Parainfluen 2 PCR Nasal Parainfluen 3 PCR Nasal Parainfluen 4 PCR Nasal RSV (PCR) Nasal B.pertussis DNA PCR Nasal C.pneumoniae (PCR) [place] Human Metapneumo PCR Nasal M.pneumoniae (PCR) Nasal SARS-CoV-2 (PCR) 01/29/24 01/29/24 Range/Units 11:55 11:30 WBC 20.3 H (4.8-10.8) x10^3/uL RBC 3.99 L (4.70-6.10) 10^6/uL Hgb 10.9 L (14.0-18.0) g/dL Hct 35.3 L (42.0-52.0) % MCV 88.5 (80.0-94.0) fL MCH 27.3 (27.0-31.0) pg MCHC 30.9 L (32.0-36.0) g/dL RDW 14.8 (12.0-15.0) % Plt Count 187 (130-450) 10^3/uL MPV 10.4 (7.4-11.4) fL Neut # (Auto) 18.4 H (1.5-6.6) 10^3/uL Lymph # (Auto) 0.6 L (1.5-3.5) 10^3/uL [place] # (Auto) 0.9 (0.0-1.0) 10^3/uL Eos # (Auto) 0.0 (0.0-0.7) 10^3/uL Baso # (Auto) 0.1 (0.0-0.1) 10^3/uL Absolute Nucleated RBC 0.00 x10^3/uL Nucleated RBC % 0.0 /100WBC Manual Slide Review Indicated Platelet Estimate NORMAL (130-450,000) (NORMAL) Platelet Morphology NORMAL APPEARANCE (NORMAL) RBC Morph Micro Appear NORMAL APPEARANCE (NORMAL) Sodium (135-145) mmol/L Potassium (3.5-4.5) mmol/L Chloride (101-111) mmol/L Carbon Dioxide (21-32) mmol/L Anion Gap (6-13) BUN (6-20) mg/dL Creatinine (0.6-1.3) mg/dL Estimated GFR (MDRD) (>89) Glucose (74-104) mg/dL Lactic Acid (0.5-2.2) mmol/L Calcium (8.5-10.3) mg/dL Total Bilirubin (0.2-1.0) mg/dL AST (10-42) IU/L ALT (10-60) IU/L Alkaline Phosphatase (42-121) IU/L B-Natriuretic Peptide (5-100) pg/mL Total Protein (6.4-8.9) g/dL Albumin (3.2-5.5) g/dL Globulin (2.1-4.2) g/dL Albumin/Globulin Ratio (1.0-2.2) Urine Color Urine Clarity (CLEAR) Urine pH (5.0-7.5) PH Ur Specific [place] (1.002-1.030) Urine Protein (NEGATIVE) mg/dL Urine Glucose (UA) (NEGATIVE) mg/dL Urine Ketones (NEGATIVE) mg/dL Urine Occult Blood (NEGATIVE) Urine Nitrite (NEGATIVE) Urine Bilirubin (NEGATIVE) Urine Urobilinogen (NORMAL) E.U./dL Ur Leukocyte Esterase (NEGATIVE) Urine RBC (0-5) /HPF Urine WBC (0-3) /HPF Ur Squamous Epith Cells (<= Few) Urine Bacteria (None Seen) /HPF Ur Microscopic Review Urine Culture Comments Nasal Adenovirus (PCR) NOT DETECTED Nasal B. parapertussis DNA (PCR) NOT DETECTED Nasal Coronavir 229E PCR NOT DETECTED Nasal Coronavir HKU1 PCR NOT DETECTED Nasal Coronavir NL63 PCR NOT DETECTED Nasal Coronavir OC43 PCR NOT DETECTED Nasal Enterovir/Rhinovir PCR NOT DETECTED Nasal Influenza B PCR NOT DETECTED Nasal Influenza A PCR NOT DETECTED Nasal Parainfluen 1 PCR NOT DETECTED Nasal Parainfluen 2 PCR NOT DETECTED Nasal Parainfluen 3 PCR NOT DETECTED Nasal Parainfluen 4 PCR NOT DETECTED Nasal RSV (PCR) NOT DETECTED Nasal B.pertussis DNA PCR NOT DETECTED Nasal C.pneumoniae (PCR) NOT DETECTED [place] Human Metapneumo PCR NOT DETECTED Nasal M.pneumoniae (PCR) NOT DETECTED Nasal SARS-CoV-2 (PCR) NOT DETECTED ABX Reporting Has patient been on IV antibiotics over the past 48 hours?: Yes Sepsis Event Note (H) - Evaluation Current Stage of Sepsis: Sepsis - Sepsis Criteria Sepsis Criteria: Recorded Temperature greater than 38.3C or Less than 36C, Recorded Heart Rate greater than 90 bpm, WBC count greater than 12,000 or less than 4000 Assessment/Plan - Problem List (1) Sepsis Impression: Continue broad-spectrum antibiotic vancomycin/Rocephin Obtain inflammatory markers Follow-up blood culture Follow-up urine culture Obtain JEAN CARLOS Obtain TSH Gentle IV hydration If worsening leukocytosis and continuous fever consider antifungal addition (2) UTI (urinary tract infection) Conclusion/Plan: IV antibiotic Rocephin/vancomycin Follow-up urine culture Follow-up inflammatory markers Continue gentle hydration (3) Atrial fibrillation Conclusion/Plan: Continue p.o.Amiodarone Continue gentle hydration Continue telemetry Obtain TSH Metoprolol added Continue aspirin (5) Hypertension Conclusion/Plan: Started on home dose metoprolol succinate (6) Obstructive sleep apnea Conclusion/Plan: Continue home dose CPAP with PEEP of 18 (7) Morbid obesity Conclusion/Plan: Obtain TSH Dietitian consultation (8) CHF (congestive heart failure) Conclusion/Plan: bnp wnl Obtain echocardiogram Rule out right-sided heart failure Gentle hydration monitor fluid status
[2024-01-30 08:29] LABS: CRP - C-REACTIVE PROTEIN 11.4 mg/dL (<0.5)
[2024-01-30 08:43] LABS: THYROID STIMULATING HORMONE 3.02 uIU/mL (0.34-5.60)
[2024-01-30] MEDS ORDERED: ASPIRIN EC 81 MG TABLET PO SCH (09:00)
[2024-01-30] MEDS ORDERED: VANCOMYCIN 500 MG VIAL ONE (09:55)
[2024-01-30] MEDS: METOPROLOL SUCCINATE 50 MG TABLET PO SCH (10:06)
[2024-01-30] MEDS: ASPIRIN EC 325 MG TABLET PO SCH (10:06)
[2024-01-30] MEDS: cefTRIAXone 2 GM in SODIUM CHLORIDE 0.9% MINIBAG 100 ML IV SCH (10:07)
[2024-01-30] MEDS: AMIODARONE 200 MG TABLET PO SCH (10:09)
--- NOTE | 2024-01-30 17:34 | CONSULTATION NOTE ---
Consultation Report: Called for placement of PICC line on this patient due to poor IV access; for IV antibiotics. Consent was obtained, questions answered. Multiple attempts with PICC were attempted on the right upper arm; with assist by Rachel LAWSON; we were able find the vessel , thread a wire, but were unable to dilate the vessel and thread a catheter. After multiple attempts, a 20 guage 2.25 inch PIV was placed in the right AC. This is the best that we are able to do at this point. If this is inadequate, a surgical consult for central access may be warranted. Discussed inability to place PICC with hospitalist.
[2024-01-30] MEDS: lidocaine 1% 20 ML MDV SUBQ ONE (17:53)
[2024-01-31 05:52] LABS: BASOPHILS # (AUTO) 0.1 10^3/uL (0.0-0.1); BASOPHILS % (AUTO) 0.5 %; EOSINOPHILS # (AUTO) 0.1 10^3/uL (0.0-0.7); EOSINOPHILS % (AUTO) 1.2 %; HCT - HEMATOCRIT 31.6 % (42.0-52.0); LYMPHOCYTES # (AUTO) 1.3 10^3/uL (1.5-3.5); LYMPHOCYTES % (AUTO) 13.9 %; MEAN CORPUSCULAR HEMOGLOBIN 27.5 pg (27.0-31.0); MEAN CORPUSCULAR HGB CONC 31.6 g/dL (32.0-36.0); MEAN CORPUSCULAR VOLUME 87.1 fL (80.0-94.0); MEAN PLATELET VOLUME 10.4 fL (7.4-11.4); MONOCYTES % (AUTO) 10.2 %; NEUTROPHILS # (AUTO) 6.6 10^3/uL (1.5-6.6); NEUTROPHILS % (AUTO) 70.5 %; PLT - PLATELET COUNT 151 10^3/uL (130-450); RED BLOOD COUNT 3.63 10^6/uL (4.70-6.10); RED CELL DISTRIBUTION WIDTH 15.2 % (12.0-15.0); WHITE BLOOD COUNT 9.3 x10^3/uL (4.8-10.8)
[2024-01-31 06:09] LABS: CALCIUM 8.7 mg/dL (8.5-10.3); CREATININE 0.7 mg/dL (0.6-1.3); POTASSIUM 3.8 mmol/L (3.5-4.5)
[2024-01-31] MEDS: HYDROcod/ACETAM 5/325 MG TABLET PO PRN (08:40)
[2024-01-31 10:02] LABS: VANCOMYCIN,TROUGH 11.2 ug/mL
--- NOTE | 2024-01-31 11:41 | PHARMACY PROGRESS NOTE ---
- Therapy Status Vancomycin regimen day #: 3 Therapy status: Trough therapeutic (Trough level 11.2 mg/dL, 7h after prior do se. Unable to use vancomycin calculator to calculate AUC due to weght. estimated 8h trough likely around 10 mg/dL and likely to accumulate. Will continue current dosing of 1500mg every 8 hours and recheck a trough level on Saturday.) Basis for treatment: Empirical (still unknown source of infection, waiting on urine cultures) Trough goal: AUC GOAL 400-600 Concurrent antibiotics: ceftriaxone 2g daily - JOSE Risk Risk level for Acute Kidney Injury: High Acute Kidney Injury risk factors: Wt >100kg or BMI >40, Total daily Vancomycin >4 grams, Sepsis - Monitoring and Recommendation Clinical response to treatment: I&O Previous 24 hours 01/29/24 01/30/24 01/31/24 23:59 23:59 23:59 Intake Total 600 Balance 600 Lab Results 01/29/24 11:55 BUN 11 Creatinine 0.9 Estimated GFR (MDRD) 97 Cultures 01/29/24 13:32 Blood - Right Hand Blood Culture - Preliminary NO GROWTH AFTER 1 DAY Areas for additional monitoring: Therapy de-escalation based on culture results, Acute Kidney Injury
--- NOTE | 2024-01-31 14:21 | Discharge Plan ---
Discharge Plan Problem Reviewed?: Yes Disposition: Home, Self Care Condition: Good Diet: Regular Activity Restrictions: No Restrictions Shower Restrictions: No Driving Restrictions: No Weight Bearing: Full Weight Additional Instructions or Follow Up instructions: 1. Rest as needed this weekend 2. Continue to work on good nutrition and hydration 3. Use tylenol as needed for headaches 4. Return to the ED for recurrent fever, inability to hold down food or fluids, shortness of breath or new symptoms No Smoking: If you smoke, Please STOP! Call for help.
--- NOTE | 2024-01-31 15:49 | Discharge Plan ---
Discharge Plan Disposition: 01 Home, Self Care Condition: Good Activity Restrictions: No Restrictions Shower Restrictions: No Driving Restrictions: No Weight Bearing: Full Weight Additional Instructions or Follow Up instructions: 1. Rest as needed this weekend 2. Continue to work on good nutrition and hydration 3. Use tylenol as needed for headaches 4. Return to the ED for recurrent fever, inability to hold down food or fluids, shortness of breath or new symptoms No Smoking: If you smoke, Please STOP! Call for help. Follow-up with: Eva Mireles ARNP [Primary Care Provider] -
--- NOTE | 2024-01-31 15:56 | Discharge Plan ---
Discharge Plan Problem Reviewed?: Yes Disposition: Home, Self Care Condition: Good Activity Restrictions: No Restrictions Shower Restrictions: No Driving Restrictions: No Weight Bearing: Full Weight Additional Instructions or Follow Up instructions: 1. Rest as needed this weekend 2. Continue to work on good nutrition and hydration 3. Use tylenol as needed for headaches 4. Return to the ED for recurrent fever, inability to hold down food or fluids, shortness of breath or new symptoms To Whom It may Concern: Mr. Saldana became ill 01/27/24. He required hospitalization. He may return to work at full duties on 02/03/24. Sincerely, Teodora Sullivan MD No Smoking: If you smoke, Please STOP! Call for help. Follow-up with: Eva Mireles ARNP [Primary Care Provider] -
[2024-01-31 16:45] VITALS: BP 165/100; O2SAT 97
--- NOTE | 2024-01-31 18:05 | DISCHARGE SUMMARY ---
Discharge Summary Admit Date: 01/29/24 Discharge Date: 01/31/24 Discharging Provider: Nate Code Status: Attempt Resuscitation Condition at Discharge: Good Discharge Disposition: 01 Home, Self Care - DIAGNOSES Admission Diagnoses: 1. Sepsis 2. UTI 3. A fib 4. HTN 5. ALONDRA 6. Morbid Obesity 7. CHF Discharge Diagnoses with Status of Each Condition: 1. Sepsis, resolved, likely viral etiology 2. UTI, ruled out 3. A fib, permanent, rate controlled, stable 4. HTN, chronic, stable 5. ALONDRA, chronic, stable 6. Class 3 obesity 7. Pulmonary edema w/o clear diagnosis of Congestive heart failure 8. Pannicular lymphedema - HPI History of Present Illness: Per H&P: This is a 33-year-old male with past medical history of morbid obesity obstructive sleep apnea childhood asthma hypertension A-fib who presents to ED of [facility] for 3 days of bodyaches feeling weak and fatigue with 1 day of fever chills and shakes. Patient denies urinary symptoms such as dysuria urinary frequency or hematuria for the patient denies URI symptoms such as runny nose coughing shortness of breath. Patient at this time denies any headache eye pain ear pain chest pain shortness of breath fevers chills nausea vomiting diarrhea constipation GI bleed bleed denies any focal weakness denies any sensory changes. In ER patient was found to be tachycardic with hypotension requiring IV hydration and broad-spectrum antibiotic as UA is positive admitted to the hospital for further workup. - HOSPITAL COURSE Hospital Course: Pt developed myalgias and arthralgias on 01/27/24. He developed fevers and worsening myalgias on 01/28/24. Symptoms progressed and he developed high fever and rigors on 01/29/24 and he presented to the ED. In the ED, he had a fever to 40.3, was tachycardic and tachypneic. WBC was elevated at 20.3. Respiratory viral panel was negative. CXR showed pulmonary edema. UA was done and blood and urine cultures were taken. He was placed on empiric antibiotics. Pt defervesced and had no localizing infectious sxs. Specifically, he had no URI or GI sxs. He had no neck pain/headache/[employer] sxs. He had a very slight cough. Blood and urine cxs remained negative. On the date of d/c, he felt he was at baseline. He had no residual sxs and was afebrile. WBC was normalizing. As culture data remained negative and he had no focal signs of bacterial infection, no antibiotics were indicated. He is discharged home in stable condition w/recommendations for ongoing conservative care. - ALLERGIES Allergies/Adverse Reactions: Allergies Allergy/AdvReac Type Severity Reaction Status Date / Time No Known Drug Allergies Allergy Verified 01/29/24 11:27 - MEDICATIONS Home Medications: Ambulatory Orders Medication Instructions Recorded Confirmed RX: Aspirin [Becky] 325 mg PO DAILY #30 tablet 09/23/23 01/29/24 RX: Metoprolol Succinate [Toprol 50 mg PO DAILY 01/01/24 01/29/24 Xl] RX: Nystatin [Nystop] 1 applic TOP BID #1 each 01/31/24 - PHYSICAL EXAM AT DISCHARGE General Appearance: positive: No acute distress, Alert Eyes Bilateral: positive: Normal inspection, EOMI ENT: positive: ENT inspection nml, Pharynx nml, Other (dentition w/multiple fillings but no active caries/abscess) Neck: positive: Nml inspection, No JVD. negative: Stiff neck Respiratory: positive: No respiratory distress, Breath sounds nml Cardiovascular: positive: No murmur, No gallop, Irregularly irregular Abdomen: positive: Non-tender, Other (Body habitus limits exam) Skin: positive: Other (chronic venous stasis changes noted to BLEs; de león nus/scrotum with lymphedema, his obesity makes it difficult to visualize his skin folds but no obvious infection) Extremities: positive: Non-tender, Other (3+ nonpitting lymphedema) Neurologic/Psychiatric: positive: Oriented x3 - LABS Result Diagrams: 01/31/24 05:23 01/31/24 05:23 - SEPSIS Current Stage of Sepsis: Resolved Sepsis Criteria: Recorded Temperature greater than 38.3C or Less than 36C, Recorded Heart Rate greater than 90 bpm, WBC count greater than 12,000 or less than 4000 - QUALITY (Female Hip Fx Only) Was patient sent home on osteoporosis medication?: No - FOLLOW UP Follow Up: His insurance is changing in 10 days and he PCP will be out of network. He will be finding a new provider. He saw his PCP 8 days ago. - TIME SPENT Time Spent in Discharge (Minutes): 35
[2024-01-31 20:08] LABS: ANTI-DNA (DS) AB QN 2 IU/mL (0-9); CENTROMERE B ANTIBODIES <0.2 AI (0.0-0.9); CHROMATIN ANTIBODIES <0.2 AI (0.0-0.9); JO-1 AB <0.2 AI (0.0-0.9); RIBOSOMAL P ANTIBODIES <0.2 AI (0.0-0.9); RNP ANTIBODIES 0.5 AI (0.0-0.9); SCLERODERMA-70 ANTIBODIES <0.2 AI (0.0-0.9); SJOGREN'S ANTI-SS-B <0.2 AI (0.0-0.9); SMITH ANTIBODIES <0.2 AI (0.0-0.9); SMITH/RNP ANTIBODIES <0.2 AI (0.0-0.9)
[2024-01-31] MEDS ORDERED: FAMOTIDINE 20 MG TABLET PO SCH (21:00)
== END 2024-01-31 19:17 | disposition home or self-care (01) | DRG 872 ==
LOC: EDUNIT# → ED 11:15 → MS2 15:16
PROVIDERS: ADMIT Hospitalist; ATTEND Family Medicine
DX: A41.89 Other specified sepsis (principal); I48.21 Permanent atrial fibrillation; J81.1 Chronic pulmonary edema; Z59.02 Unsheltered homelessness; Z68.45 Body mass index [BMI] 70 or greater, adult; I10 Essential (primary) hypertension; G47.33 Obstructive sleep apnea (adult) (pediatric); E66.01 Morbid (severe) obesity due to excess calories; I89.0 Lymphedema, not elsewhere classified; Z87.09 Personal history of other diseases of the respiratory system; Z20.818 Contact with and (suspected) exposure to other bacterial communicable diseases; Z20.822 Contact with and (suspected) exposure to COVID-19; Z20.828 Contact with and (suspected) exposure to other viral communicable diseases; Z79.82 Long term (current) use of aspirin; Z79.899 Other long term (current) drug therapy; Z82.49 Family history of ischemic heart disease and other diseases of the circulatory system; Z83.3 Family history of diabetes mellitus
CPT/HCPCS: 36415; 71045; 80048; 80053; 80202; 81001; 83605; 83880; 84443; 85025; 85651; 86140; 86225; 86235; 87040; 87633; 93005; 93307; 96365; 99285; A9270; J3370; 81003; 83516; 87086